=== PATIENT | female | born 1995 | race African-American/Black ===

== ENCOUNTER 2021-10-25 09:21 | Emergency (ER) | payer OTHER, SELFPAY ==
[2021-10-25 09:35] VITALS: BP 132/70; PULSE 75; RESP 16; TEMP 36.9; O2SAT 100
--- NOTE | 2021-10-25 10:10 | ED.URI ---
HPI - URI/Sore Throat General Chief Complaint: Upper Respiratory Infection Stated Complaint: Cough/Headache/Congestion Time Seen by Provider: 10/25/21 10:10 Source: patient and RN notes reviewed Mode of arrival: ambulatory Limitations: no limitations History of Present Illness HPI Narrative: 26-year-old female presents to the [facility] with complaints of cough, headache and congestion for the last 2 to 3 days. Has taken Robitussin and Tylenol. MD elicited complaint: cough, rhinorrhea and nasal congestion Related Data Home Medications Medication Instructions Recorded Confirmed No Home Medications 10/25/21 10/25/21 Allergies Allergy/AdvReac Type Severity Reaction Status Date / Time No Known Allergies Allergy Verified 10/25/21 09:55 Review of Systems Review of Systems: All systems reviewed & are unremarkable except as noted in HPI and below Constitutional: Constitutional: Reports as per HPI, Denies chills, Reports fatigue and Denies fever(s) Eyes: Eyes: Reports no additional eye complaints ENT: Reports as per HPI and Reports nasal congestion Cardiovascular: Cardiovascular: Reports no additional cardiovascular complaints, Denies chest pain, Denies rapid heart rate and Denies radiating jaw, neck or arm pain Respiratory: Respiratory: Reports as per HPI, Reports chest congestion and Reports cough Gastrointestinal: Gastrointestinal: Reports no additional gastrointestinal complaints, Denies abdominal pain, Denies diarrhea, Denies nausea and Denies vomiting Genitourinary: Genitourinary: Reports no additional female genitourinary complaints Musculoskeletal: Musculoskeletal: Reports no additional musculoskeletal complaints Integumentary/Breasts: Skin/Breast: Reports system reviewed and no additional complaints, except as docu Neurologic: Reports as per HPI and Reports headache(s) Psychiatric: Psychiatric: Reports no additional psychiatric complaints Allergic/Immunologic: Allergic/Immunologic: Reports no additional allergic/immunologic complaints PMFSH Past Medical History Medical History H/O gastroesophageal reflux (GERD) High cholesterol Comments At the time of my signature, I reviewed and agree with the nursing past medical, surgical, social, and family history. There is no relevant family history pertinent to the patient complaint. Exam Const: General: healthy appearing, no acute distress and alert Nutritional Appearance: well nourished Orientation/consciousness: patient oriented x3 Limitations: no limitations HENMT: Head: normal to inspection General nose exam: Normal external nose present, Abnormal mucous membranes and turbinates present boggy and erythematous and Nasal discharge present clear Face and sinus: normal facial exam Mouth: Yes Normal oral and palatal mucosa present Throat: tonsils normal, uvula midline, postnasal drainage and no uvular edema Eyes: Conjunctivae: conjunctivae normal Pupils: Equal, round and reactive pupils present Neck: Neck: normal visual inspection, no lymphadenopathy and no meningeal signs Chest: Chest palpation & inspection: normal inspection of the chest Resp: Effort & Inspection: normal respiratory effort and no use of accessory muscles Auscultation: clear to auscultation bilaterally, no crackles, no rales, no rhonchi and no wheezes Cardio: Rate: regular rate Rhythm: regular rhythm GI: GI Palp: Yes Soft to palpation and No Tenderness to palpation present (GI) Back/Spine/Pelvis: Back: no CVA tenderness Skin: General skin exam: normal color Rashes: no rashes Wounds: no wounds Neuro: General: patient oriented x3, moves all extremities, no meningeal signs and no focal motor deficits Speech: normal speech Gait exam (Neuro): Normal gait present Extrem: General: normal to inspection Psych: Appearance: grossly normal and well kempt Mental Status: mental status grossly normal Affect: normal affect Attitude: c
[2021-10-26 14:35] LABS: SARS-CoV-2 RNA PCR Positive
== END 2021-10-25 10:29 | disposition home or self-care (01) ==
PROVIDERS: Emergency Provider Nurse Practitioner
DX: U07.1 COVID-19 (principal); K21.9 Gastro-esophageal reflux disease without esophagitis; E78.00 Pure hypercholesterolemia, unspecified
CPT/HCPCS: 87081; 87804; 87880; 99213; C9803; G0463; U0003; U0005

== ENCOUNTER 2023-03-13 23:58 | Emergency (ER) | payer OTHER, SELFPAY ==
--- NOTE | ~2023-03-13 | CT_ITS ---
Noncontrast CT scan of the pelvis CLINICAL HISTORY: Sacral tenderness TECHNIQUE: Axial noncontrast imaging of the pelvis was performed. Sagittal and coronal reformatted im ages were constructed. Dose reduction technique was used on this scan by utilizing automated exposure control and iterative reconstruction technique. The dose-length product (DLP) was 805.83 mGy-cm. Findings: No fracture or dislocation seen. Osseous alignment is anatomic. Bilateral hip and SI joints are unremarkable. No degenerative or erosive change identified. No sclerosis. No joint effusion iden tified. Visualized musculature about the pelvis is grossly unremarkable. No soft tissue abnormality seen. No definite adnexal mass seen. No ascites. Urinary bladder unremarkable. IMPRESSION: No significant abnormality seen. Reviewed, dictated and finalized at location .
[2023-03-14 00:01] VITALS: BP 138/68; PULSE 80; RESP 20; TEMP 36.9; O2SAT 98
[2023-03-14] MEDS: KETOROLAC 30 MG/ML VIAL (*BKC) IM (00:38)
--- NOTE | 2023-03-14 00:43 | ED.BACK ---
HPI - Back Pain/Injury General Chief Complaint: Back Pain/Injury Stated Complaint: lower back pain Time Seen by Provider: 03/14/23 00:17 History of Present Illness HPI Narrative: Patient is a 27-year-old female here for evaluation of tailbone pain for the past 2 days. Patient states that the pain is worse with certain positions and with movements of her legs. Denies obvious trigger. No changes to her bowel or bladder, paresthesias, weakness in the limbs. She has not taken any medicine for her symptoms. Related Data Allergies Allergy/AdvReac Type Severity Reaction Status Date / Time No Known Allergies Allergy Verified 10/25/21 09:55 Review of Systems Review of Systems: Gen.: Denies fevers or chills Eyes: Denies eye pain or visual change ENT: Denies congestion Respiratory: Denies shortness of breath or cough CV: Denies chest pain or palpitations GI: Denies abdominal pain nausea, emesis or diarrhea : denies burning, urgency, frequency or hematuria Musculoskeletal: Reports tailbone pain Neuro: Denies numbness, tingling, weakness or focal weakness Skin: Denies rash Except as documented, all other systems reviewed and negative PMFSH Past Medical History Medical History H/O gastroesophageal reflux (GERD) High cholesterol Exam Narrative: APPEARANCE: Well appearing, no pain in distress, well-nourished. Head: Normocephalic and atraumatic. EYES: PERRLA/EOMI, conjunctivae clear NOSE: No nasal drainage EARS: External ear normal in appearance THROAT: Oropharynx is clear. Mucous membranes are moist. NECK: Supple. No adenopathy, no masses. RESPIRATORY: Airway patent, respirations nonlabored. Clear to auscultation bilaterally, no rales, rhonchi, wheezing. CARDIOVASCULAR: Regular rate and rhythm without murmurs, rubs, or gallops. ABDOMINAL: Normoactive bowel sounds. Soft, nontender, nondistended. No rebound tenderness or guarding. MUSCULOSKELETAL: There is tenderness to palpation along the sacrum. Patient is able to stand without difficulty. NEURO: Normal speech. No focal neurologic deficits. SKIN: No palpable abscess in the pilonidal region. Skin is warm and dry. No rashes. PSYCHIATRIC: Normal affect/mood.. Course Vital Signs Vital signs: Vital Signs Temperature 98.5 F 03/14/23 00:01 Pulse Rate 80 03/14/23 00:01 Respiratory Rate 20 03/14/23 00:01 Blood Pressure 138/68 03/14/23 00:01 Pulse Oximetry 98 03/14/23 00:01 Oxygen Delivery Room Air 03/14/23 00:01 Temperature 98 F 03/14/23 02:09 Pulse Rate 62 03/14/23 02:09 Respiratory Rate 15 03/14/23 02:09 Blood Pressure 118/52 L 03/14/23 02:09 Pulse Oximetry 100 03/14/23 02:09 Oxygen Delivery Room Air 03/14/23 00:01 MDM - Back Pain/Injury MDM Narrative Medical decision making narrative: 27-year-old female here for evaluation of atraumatic tailbone pain for the past several days. No abnormality on exam, does have some slight tenderness palpation along the sacrum. No incontinence or retention of bowel or bladder, saddle anesthesia. CT without acute findings. UA is normal. Patient improved after Toradol. Likely MSK sprain. Will be sent home with muscle relaxants and PMD follow-up. Lab Data Labs: Lab Results 03/14/23 Range/Units 00:48 Urine Color Yellow (Yellow) Urine Appearance Clear (Clear) Urine pH 7.0 (5.0-9.0) Ur Specific [place] 1.021 (1.001-1.035) Urine Protein Negative (Negative) mg/dL Urine Glucose (UA) Negative (Negative) mg/dL Urine Ketones Negative (Negative) mg/dL Ur Blood (Man) Negative (Negative) Urine Nitrate Negative (Negative) Urine Bilirubin Negative (Negative) Urine Urobilinogen 1.0 (<2.0) mg/dL Leukocyte Esterase Rfl Negative (Negative) MATT/UL UCG Bedside Result Negative Reference Range: Negative
[2023-03-14 00:55] LABS: Appearance Urine Clear (Clear); Bilirubin Urine Negative (Negative); Blood Urine Negative (Negative); Color Urine Yellow (Yellow); Glucose Urine UA Negative (Negative); Ketones Urine Negative (Negative); Leukocyte Esterase Ur Negative LEU/UL (Negative); Nitrate Urine Negative (Negative); Protein Urine Negative (Negative); Specific Grav Ur 1.021 (1.001-1.035)
[2023-03-14 01:00] LABS: Add Urine Microscopic? NO
[2023-03-14 02:09] VITALS: BP 118/52; PULSE 62; RESP 15; TEMP 36.6; O2SAT 100
== END 2023-03-14 02:10 | disposition home or self-care (01) ==
PROVIDERS: Emergency Provider Physician Assistant
DX: S39.012A Strain of muscle, fascia and tendon of lower back, initial encounter (principal); E78.00 Pure hypercholesterolemia, unspecified; K21.9 Gastro-esophageal reflux disease without esophagitis; X58.XXXA Exposure to other specified factors, initial encounter
CPT/HCPCS: 72192; 81003; 81025; 96372; 99284; J1885

== ENCOUNTER 2023-07-19 16:40 | Emergency (ER) | payer MEDICAID, SELFPAY ==
--- NOTE | ~2023-07-19 | XR_ITS ---
EXAMINATION: XR tibia fibula RT 2V INDICATION: Right leg pain TECHNIQUE: Two views of the right tibia and fibula are obtained. COMPARISON: None available FINDINGS: No fracture, dislocation, or subluxation. The bones, soft tissues, and joint spaces are nor mal. IMPRESSION: 1. No acute osseous abnormality. Reviewed, dictated and finalized at location F.
--- NOTE | ~2023-07-19 | XR_ITS ---
EXAMINATION: XR knee RT min 4V DATE: 07/19/2023 19:03 INDICATION: Right knee pain TECHNIQUE: Four views of the right knee were obtained. COMPARISON: None. FINDINGS: Alignment is normal. No fracture or osteochondral lesion. Joint spaces are normal with no e rosions. No joint effusion/synovitis. Soft tissues are unremarkable. IMPRESSION: 1. No acute osseous abnormality. Reviewed, dictated and finalized at location F.
--- NOTE | ~2023-07-19 | XR_ITS ---
EXAMINATION: XR tibia fibula LT 2V INDICATION: Left lower leg pain TECHNIQUE: Two views of the left tibia and fibula are obtained COMPARISON: None available FINDINGS: No fracture, dislocation, or subluxation. The bones, soft tissues, and joint spaces are nor mal. IMPRESSION: 1. No acute osseous abnormality. Reviewed, dictated and finalized at location F.
--- NOTE | ~2023-07-19 | US_ITS ---
EXAMINATION: US venous doppler [facility] DATE: 07/19/2023 19:27 INDICATION: Bilateral lower limb pain TECHNIQUE: March scale images without and with compression and Doppler images of the bilateral lower e xtremity veins were obtained. COMPARISON: None FINDINGS: The right common femoral vein, profunda femoral vein, femoral vein, popliteal vein, peroneal trunk, p osterior tibial veins, and greater saphenous vein are patent. The left common femoral vein, profunda femoral vein, femoral vein, popliteal vein, peroneal trunk, po sterior tibial veins, and greater saphenous vein are patent. IMPRESSION: 1. Patent bilateral lower extremity veins. No evidence of deep venous thrombosis. Reviewed, dictated and finalized at location F. IMPRESSION: 1. Patent bilateral lower extremity veins. No evidence of deep venous thrombosi s.
[2023-07-19 17:01] VITALS: BP 123/56; PULSE 63; RESP 15; TEMP 36.6; O2SAT 100
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
--- NOTE | 2023-07-19 19:13 | PC.NURSE ---
This RN assumed care of patient. This RN took patient report from DENIS Hart.
[2023-07-19] MEDS: CYCLOBENZAPRINE HCL 10 MG TABLET PO (19:36)
[2023-07-19] MEDS: IBUPROFEN 600 MG TABLET PO (19:36)
[2023-07-19 19:50] LABS: Basophils Percent Auto 0.3 % (0.2-1.2); Eosinophils Absolute Auto 0.1 K/mm3 (0-0.3); Hematocrit 39.6 % (37.0-47.0); Hemoglobin 12.4 g/dL (12.0-15.0); Immature Granulocyte Absolute 0.04 K/mm3 (0.00-0.031); Immature Granulocyte Percent A 0.3 % (0-0.5); Lymphocytes Absolute Auto 4.26 K/mm3 (0.9-3.2); Lymphocytes Percent Auto 31.1 % (18.3-44.2); Mean Corpuscular HGB Conc 31.3 g/dl (32-36); Mean Corpuscular Volume 89.4 fl (80-100); Mean Platelet Volume 9.9 fl (7.4-10.4); Monocytes Absolute Auto 0.8 K/mm3 (0.1-0.6); Monocytes Percent Auto 6.1 % (2.6-8.5); Neutrophils Absolute Auto 8.4 K/mm3 (1.3-6.7); Neutrophils Percent Auto 61.2 % (45.5-73.1); Platelet Count Result 363 k/mm3 (150-375); Red Blood Count 4.43 M/mm3 (4.2-5.4); Red Cell Distribution Width 13.1 % (11.5-14.5); White Blood Count 13.7 K/mm3 (4.5-10.0)
[2023-07-19 20:01] LABS: Anion Gap 6 mmol/L (8-16); Blood Urea Nitrogen 13 mg/dL (7-17); Calcium 9.1 mg/dL (8.4-10.2); Carbon Dioxide 30 mmol/L (22-30); Chloride 99 mmol/L (98-107); Creatine Kinase 147 U/L (30-135); Estimated CRCL calculation 112 ml/min; Estimated Glomerular Filt Rate > 60; Glucose 93 mg/dL (65-110); Magnesium 1.9 mg/dL (1.6-2.3); Phosphorus 3.9 mg/dL (2.5-4.5); Potassium 3.8 mmol/L (3.4-5.0); Sodium 135 mmol/L (137-145)
[2023-07-19] MEDS: diphenhydrAMINE HCl CAP 25 MG CAPSULE PO (20:30)
== END 2023-07-19 20:32 | disposition home or self-care (01) ==
PROVIDERS: Emergency Provider Physician Assistant
DX: M79.662 Pain in left lower leg (principal); M79.661 Pain in right lower leg; E78.00 Pure hypercholesterolemia, unspecified; K21.9 Gastro-esophageal reflux disease without esophagitis
CPT/HCPCS: 36415; 73564; 73590; 80048; 82550; 83735; 84100; 85025; 93970; 99284; A9270

== ENCOUNTER 2024-01-28 08:30 | Emergency (ER) | payer OTHER, SELFPAY ==
[2024-01-28 08:38] VITALS: BP 134/70; PULSE 61; RESP 20; TEMP 36.6; O2SAT 100
--- NOTE | 2024-01-28 09:13 | ED.GENADULT ---
HPI - General Adult General Chief complaint: Headache Stated complaint: headache Time Seen by Provider: 01/28/24 09:02 History of Present Illness HPI narrative: 28-year-old female with a history of migraines presents to the emergency department for a migraine times 3-4 days. Patient states her headache is around her temples and wraps around her forehead. She states it is associated with photophobia, phonophobia nausea. States this is how her migraines normally present. She is prescribed Topamax for migraines, however did not take it today because she states she does not like the way it makes her feel. She denies vision changes, focal numbness or weakness, fever, neck pain or nuchal rigidity, vomiting. LMP 01/08/2024, denies possibility of . Related Data Allergies Allergy/AdvReac Type Severity Reaction Status Date / Time No Known Allergies Allergy Verified 01/28/24 08:41 Review of Systems Review of Systems: CONSTITUTIONAL: Denies fever, chills, or sweats. EYES: Denies visual changes, redness, or discharge. ENT: Denies rhinorrhea, congestion, sore throat, or otalgia. CARDIOVASCULAR: Denies chest pain, palpitations, or edema. RESPIRATORY: Denies cough or dyspnea. GASTROINTESTINAL: Denies abdominal pain, nausea, vomiting, or diarrhea. GENITOURINARY: Denies dysuria or hematuria. SKIN: Denies rash or itching. MUSCULOSKELETAL: Denies back pain, joint pain, or myalgia. NEUROLOGIC: See HPI PSYCHIATRIC: Denies anxiety or depression. PMFSH Past Medical History Medical History H/O gastroesophageal reflux (GERD) High cholesterol Exam Narrative: GENERAL: Well-appearing, well-nourished, and in no acute distress. HEAD: Normocephalic, atraumatic. EYES: PERRLA and EOMI. ENT: Nares clear, no rhinorrhea or epistaxis. Mucous membranes moist. Bilateral TMs are colindres nonbulging normal canals. No mastoid tenderness. Posterior pharynx erythema or edema. NECK: Supple. No nuchal rigidity CHEST: Clear to auscultation. No respiratory distress. HEART: Regular rate and rhythm. No murmur heard. Normal peripheral pulses. ABDOMEN: Soft, nontender, nondistended, normal active bowel sounds. EXTREMITIES: Normal range of motion. No edema. SKIN: Warm, dry, no rash. NEURO: No focal deficits. Alert and oriented x3. Cranial nerves 2-12 intact. Strength 5/5 in BUE and BLE. Sensation intact throughout. Normal [id number]. No pronator drift. Course Vital Signs Vital signs: Vital Signs Temperature 97.9 F 01/28/24 08:38 Pulse Rate 61 01/28/24 08:38 Respiratory Rate 20 01/28/24 08:38 Blood Pressure 134/70 01/28/24 08:38 Pulse Oximetry 100 01/28/24 08:38 Oxygen Delivery Room Air 01/28/24 08:38 Temperature 98.0 F 01/28/24 10:01 Pulse Rate 56 L 01/28/24 10:01 Respiratory Rate 16 01/28/24 10:01 Blood Pressure 107/68 01/28/24 10:01 Pulse Oximetry 99 01/28/24 10:01 Oxygen Delivery Room Air 01/28/24 08:38 Medical Decision Making [facility] Narrative Medical decision making narrative: 28-year-old female with history of migraines presents to emergency department for migraine x3 or 4 days with associated photophobia, phonophobia nausea. Vital stable. She is neurologically intact without red flag headache signs. Plan to give her a migraine cocktail and fluids and re-evaluate. If patient re-evaluated after fluids a migraine cocktail and feels much better. She is tolerating p.o. intake. Feels she to be discharged home. Encouraged her to continue taking her Topamax, Tylenol ibuprofen and follow-up closely with her PCP. Strict ED return precautions were discussed. She is agreeable with the plan verbalized understanding. Discharged in stable condition. Vital Signs Vital Signs: Vital Signs Temperature 97.9 F 01/28/24 08:38 Pulse Rate 61 01/28/24 08:38 Respiratory Rate 20 01/28/24 08:38 Blood Pressure 134/70 01/28/24 08:
[2024-01-28 09:37] VITALS: BP 112/91; PULSE 54; RESP 16; TEMP 36.6; O2SAT 100
[2024-01-28] MEDS: SODIUM CHLORIDE 0.9% IV 1,000 ML 999 ML IV CONT (09:46)
[2024-01-28] MEDS: PROCHLORPERAZINE EDISYLATE 10 MG/2 ML VIAL IV PUSH (09:48)
[2024-01-28] MEDS: diphenhydrAMINE HCl INJ 50 MG/ML VIAL 25 MG IV PUSH (09:48)
[2024-01-28] MEDS: KETOROLAC 30 MG/ML VIAL (*BKC) IV PUSH (09:48)
[2024-01-28 10:01] VITALS: BP 107/68; PULSE 56; RESP 16; TEMP 36.7; O2SAT 99
== END 2024-01-28 11:10 | disposition home or self-care (01) ==
PROVIDERS: Emergency Provider Physician Assistant
DX: G44.209 Tension-type headache, unspecified, not intractable (principal); K21.9 Gastro-esophageal reflux disease without esophagitis
CPT/HCPCS: 96361; 96374; 96375; 99284; J0780; J1200; J1885; J7030

== ENCOUNTER 2024-08-21 09:50 | Emergency (ER) | payer OTHER, SELFPAY ==
--- NOTE | ~2024-08-21 | XR_ITS ---
EXAMINATION: XR chest 2V DATE: 08/21/2024 10:43 INDICATION: Midsternal chest pain. TECHNIQUE: Frontal and lateral views of the chest were obtained. COMPARISON: None. FINDINGS: There is no pneumonia, pleural effusion, or pneumothorax. The heart size is normal. IMPRESSION: 1. No acute cardiopulmonary disease. Reviewed, dictated and finalized at location B.
--- NOTE | 2024-08-21 09:55 | ECG_ITS ---
Test Date: 2024-08-21 09:59:19 Measurements Intervals [place] Rate: 63 P: 61 OR: 186 QRS: -29 QRSD: 93 T: 24 QT: 423 QTc: 436 Interpretive Statements SINUS RHYTHM POSSIBLE LEFT ATRIAL ENLARGEMENT DELAYED PRECORDIAL R/S TRANSITION BORDERLINE T WAVE ABNORMALITY- ANT/INF LEADS BASELINE WANDER- V4 BORDERLINE ECG No previous ECG available for comparison Electronically Signed On 08-21-2024 10:30:39 CDT by Barrie Knott D.O.
[2024-08-21 10:00] VITALS: BP 138/82; PULSE 57; RESP 18; TEMP 36.5; O2SAT 100
[2024-08-21 10:19] LABS: Basophils Percent Auto 0.4 % (0.2-1.2); Eosinophils Absolute Auto 0.1 K/mm3 (0-0.3); Eosinophils Percent Auto 1.1 % (0-4.4); Hematocrit 38.4 % (37.0-47.0); Hemoglobin 12.5 g/dL (12.0-15.0); Immature Granulocyte Absolute 0.03 K/mm3 (0.00-0.031); Immature Granulocyte Percent A 0.3 % (0-0.5); Lymphocytes Absolute Auto 3.15 K/mm3 (0.9-3.2); Lymphocytes Percent Auto 27.8 % (18.3-44.2); Mean Corpuscular HGB Conc 32.6 g/dl (32-36); Mean Corpuscular Hemoglobin 28.7 pg (26-34); Mean Corpuscular Volume 88.3 fl (80-100); Mean Platelet Volume 9.9 fl (7.4-10.4); Monocytes Absolute Auto 0.7 K/mm3 (0.1-0.6); Monocytes Percent Auto 5.7 % (2.6-8.5); Neutrophils Absolute Auto 7.3 K/mm3 (1.3-6.7); Neutrophils Percent Auto 64.7 % (45.5-73.1); Platelet Count Result 359 k/mm3 (150-375); Red Blood Count 4.35 M/mm3 (4.2-5.4); Red Cell Distribution Width 13.2 % (11.5-14.5); White Blood Count 11.3 K/mm3 (4.5-10.0)
[2024-08-21 10:27] LABS: Alanine Aminotransferase 17 U/L (6-35); Alkaline Phosphatase 99 U/L (38-126); Anion Gap 4 mmol/L (4-12); Aspartate Amino Transferase 22 U/L (14-36); Bilirubin,Total 0.5 mg/dL (0.2-1.3); Blood Urea Nitrogen 8 mg/dL (7-17); Calcium 9.1 mg/dL (8.4-10.2); Carbon Dioxide 33 mmol/L (22-30); Chloride 101 mmol/L (98-107); Estimated CRCL calculation 108 ml/min; Estimated Glomerular Filt Rate > 60; Glucose 93 mg/dL (65-110); Lipase 93 U/L (23-300); Potassium 3.9 mmol/L (3.4-5.0); Sodium 138 mmol/L (137-145)
[2024-08-21 10:30] LABS: Prothrombin Time 13.9 Seconds (11.1-14.7)
[2024-08-21 10:31] LABS: Partial Thromboplastin Time 31.9 Seconds (22.3-36.8)
[2024-08-21 10:39] LABS: Troponin I < 0.012 ng/mL (0.000-0.034)
--- NOTE | 2024-08-21 11:50 | ED.CHESTPAIN ---
HPI - Chest Pain General Chief Complaint: Chest Pain <Cheryl Nails PA-C - Last Filed: 08/21/24 18:56> Stated Complaint: chest pain <Cheryl Nails PA-C - Last Filed: 08/21/24 18:56> Time Seen by Provider: 08/21/24 11:50 <Cheryl Nails PA-C - Last Filed: 08/21/24 18:56> Focused HPI: This is a 29 year old female that presents to the ER for intermittent chest pain. Ongoing over the last 4 days. Reports sharp pain. Her chest feels heavy. Feels like she had to sleep sitting up. Reports some shortness of breath. Denies fever, cough, lower extremity edema. GENERAL: Well-appearing, well-nourished, and in no acute distress. HEAD: Normocephalic, atraumatic. CHEST: Clear to auscultation. ?No respiratory distress. HEART: Regular rate and rhythm.? NEURO: ?Alert and oriented x3. Patient screened in triage and initial orders placed.? ?Additional care and disposition to be based upon?diagnostic testing and treatment. <Cheryl Nails PA-C - Last Filed: 08/21/24 18:56> History of Present Illness HPI narrative: Agree with the above with the following additions/corrections: Patient presents with chest pain a few days duration she is not improving. She describes it as an intermittent sharp pain and feeling pressure like it is heavy. It is also worse with deep breath. no palliating or provoking factors. It is otherwise nonradiating and described 10 Out of 10 severity. the hip was once her feel like she was short of breath. She denies any cough particularly no hemoptysis. The episodes last a while. no fever, nausea, vomiting. No diaphoresis although she does get flushed. She previously underwent evaluation cardiology Pulmonary had a stress test and PFTs performed which were reportedly normal. This occurred within the past year. She does not otherwise regularly follow with a brush clearer surveying. No history of hypertension. She does hyperlipidemia which she is on a statin. No prior myocardial infarction, TIA, or CVA. No family history of myocardial infarction before the age of 65 in a first-degree relative. Nonsmoker. No history of diabetes mellitus. No lower extremity edema. no recent mobilization, not currently on control (She has a history of PCOS but this was discontinued awhile ago). No recent travel or history of DVT or PE. Her primary care physician is Dr. Susan Thakkar through [facility] which is also the hospital system through which is the hospital system she previously saw cardiology at [facility]. <Radha Rizzo MD - Last Filed: 08/22/24 06:32> Related Data Allergies/Adverse Reactions: Allergies Allergy/AdvReac Type Severity Reaction Status Date / Time rizatriptan Allergy Unknown Verified 08/21/24 12:02 latex AdvReac Hives Verified 08/21/24 12:02 <Cheryl Nails PA-C - Last Filed: 08/21/24 18:56> Review of Systems Review of Systems: All systems reviewed & are unremarkable except as noted in HPI and below <Cheryl Nails PA-C - Last Filed: 08/21/24 18:56> PMFSH Past Medical History Medical History: Medical History (Updated 08/22/24 @ 06:27 by Radha Rizzo MD) Jean's palsy H/O gastroesophageal reflux (GERD) High cholesterol PCOS (polycystic ovarian syndrome) <Cheryl Nails PA-C - Last Filed: 08/21/24 18:56> Social History Social History: Social History (Updated 08/22/24 @ 06:27 by Radha Rizzo MD) Smoking status: Never smoker Substance use: never <Cheryl Nails PA-C - Last Filed: 08/21/24 18:56> Exam Narrative: GENERAL: Well-appearing, well-nourished, and in no acute distress. HEAD: Normocephalic, atraumatic. EYES: Non injected, non icteric ENT: Nares clear, no rhinorrhea or epistaxis. NECK: Supple. CHEST: Speaking in full sentences. No respiratory distress. lungs clear to auscultation bilateral without wheezes crackles or consolidation HEART: bradycardic rate and rhythm. . ABDOMEN: Soft, nondistended. EXTREMITIES: Normal range of motion. No bilateral lower extremity edema. SKIN: Warm, dry, no rash. NEURO: No focal deficits. Alert and oriented x3. PSYCH: Normal mood and affect. <Radha Rizzo MD - Last Filed: 08/22/24 06:32> Course Vital Signs Vital signs: Vital Signs Temperature 97.7 F 08/21/24 10:00 Pulse Rate 57 L 08/21/24 10:00 Respiratory Rate 18 08/21/24 10:00 Blood Pressure 138/82 08/21/24 10:00 Pulse Oximetry 100 08/21/24 10:00 Oxygen Delivery Room Air 08/21/24 10:00 Temperature 97.7 F 08/21/24 10:00 Pulse Rate 57 L 08/21/24 10:00 Respiratory Rate 18 08/21/24 10:00 Blood Pressure 138/82 08/21/24 10:00 Pulse Oximetry 98 08/21/24 12:40 Oxygen Delivery Room Air 08/21/24 12:40 <Cheryl Nails PA-C - Last Filed: 08/21/24 18:56> Vital Signs Temperature 97.7 F 08/21/24 10:00 Pulse Rate 57 L 08/21/24 10:00 Respiratory Rate 18 08/21/24 10:00 Blood Pressure 138/82 08/21/24 10:00 Pulse Oximetry 100 08/21/24 10:00 Oxygen Delivery Room Air 08/21/24 10:00 Temperature 97.7 F 08/21/24 10:00 Pulse Rate 57 L 08/21/24 10:00 Respiratory Rate 18 08/21/24 10:00 Blood Pressure 138/82 08/21/24 10:00 Pulse Oximetry 98 08/21/24 12:40 Oxygen Delivery Room Air 08/21/24 12:40 <Radha Rizzo MD - Last Filed: 08/22/24 06:32> MDM - Chest Pain MDM Narrative Medical decision making narrative: 29-year-old female presents with chest pain of a few days duration. In the emergency department she is afebrile with vital signs notable for mild bradycardia. PERC Rule Age greater than or equal to 50: 0 HR greater than or equal to 100:0 O2 sat room air <95%:0 Unilateral leg swellin Hemoptysis:0 Recent surgery or trauma less than 4 wks ago requiring tx with general anesthesia:0 Prior PE or DVT:0 Hormone use (OCP, HRT or estrogenic hormone use in M/F patients): 0 Will not pursue further work up for PE, especially since Wells' Score for PE: Clinical S/S DVT (No 0, Yes +3) 0 PE #1 Dx OR equally likely (No 0, Yes +3)0 HR >100 (No 0, Yes +1.5)0 Immobiliazation at least 3 d OR surgery prev 4 wks (No 0, Yes +1.5)0 Previous Dx DVT/PE (No 0, Yes +1.5):0 Hemoptysis (No 0, Yes +1):0 Malignancy w/ Tx within 6 mos or palliative (No 0, Yes +1):0 I later see that FLAVIA had added a D Dimer but it was normal. BNP is less than 100, unlikely to be heart failure. Patient has a mild leukocytosis but other than that workup is generally unremarkable. HEART SCORE History 2 highly suspicious 1 moderately suspicious 0 slightly suspicious History score [address] depression/elevation not due to LBBB, LVH, or digoxin [address] depression but LBBB, LVH, nonspecific repolarization changes 0 normal ECG score 1 Age 2 >/= 65 1 45-64 0 <45 Age score 1 Risk factors (HTN, hypercholesterolemia, DM, obesity with BMI >30, current smoker or cessation </=3mo), positive fam hx with parent or sibling with CVD before age 65, atherosclerotic disease (prior UT, PCI/CABG, CVA/TIA, or peripheral arterial disease) 2 >/= 3 risk factors or history of atherosclerotic dz 1 - 1-2 risk factors 0 no known risk factors Risk factor score 1 ( as hyperlipidemia, obesity) Initial Troponin 2 >3 times normal limit 1 1-3 times normal limit 0 less than or equal to normal limit Troponin score : 0 Total HEART Score 2 with 2nd negative troponin. Patient discharged in stable condition with prescriptions for acetaminophen and ibuprofen and advised to follow-up with her primary care physician and the brush clearer surveying she previously saw or, also provided referral for brush clearer surveying here. <Radha Rizzo MD - Last Filed: 08/22/24 06:32> Differential Diagnosis Differential diagnosis: Likely unstable angina pectoris, atypical chest pain, costochondritis, chest pain, biliary colic and other (pericarditis, Myocarditis, musculoskeletal) <Radha Rizzo MD - Last Filed: 08/22/24 06:32> Lab Data Attestation: I reviewed the patient's lab results. <Radha Rizzo MD - Last Filed: 08/22/24 06:32> Result diagrams: 08/21/24 10:07 08/21/24 10:07 <Cheryl Nails PA-C - Last Filed: 08/21/24 18:56> Labs: Lab Results 08/21/24 08/21/24 Range/Units 10:07 12:43 WBC 11.3 H (4.5-10.0) K/mm3 RBC 4.35 (4.2-5.4) M/mm3 Hgb 12.5 (12.0-15.0) g/dL Hct 38.4 (37.0-47.0) % MCV 88.3 (80-100) fl MCH 28.7 (26-34) pg MCHC 32.6 (32-36) g/dl RDW 13.2 (11.5-14.5) % Plt Count 359 (150-375) k/mm3 MPV 9.9 (7.4-10.4) fl Immature Gran % (Auto) 0.3 (0-0.5) % Neut % (Auto) 64.7 (45.5-73.1) % Lymph % (Auto) 27.8 (18.3-44.2) % Talbot % (Auto) 5.7 (2.6-8.5) % Eos % (Auto) 1.1 (0-4.4) % Baso % (Auto) 0.4 (0.2-1.2) % Lymph # (Auto) 3.15 (0.9-3.2) K/mm3 Talbot # (Auto) 0.7 H (0.1-0.6) K/mm3 Eos # (Auto) 0.1 (0-0.3) K/mm3 Baso # (Auto) 0.0 (0.0-0.1) K/mm3 Abs Immat Gran (auto) 0.03 (0.00-0.031) K/mm3 Absolute Neuts (auto) 7.3 H (1.3-6.7) K/mm3 Absolute Nucleated RBC 0.000 (0.0-0.012) K/mm3 Nucleated RBC % 0.0 (0.0-0.2) % PT 13.9 (11.1-14.7) Seconds INR 1.0 APTT 31.9 (22.3-36.8) Seconds D-Dimer 0.30 Cancelled (<0.48) ug/mL Sodium 138 (137-145) mmol/L Potassium 3.9 (3.4-5.0) mmol/L Chloride 101 (98-107) mmol/L Carbon Dioxide 33 H (22-30) mmol/L Anion Gap 4 (4-12) mmol/L BUN 8 D (7-17) mg/dL Creatinine 0.80 (0.7-1.0) mg/dL Estim Creat Clear Calc 108 ml/min Estimated GFR > 60 (59 - ) Glucose 93 (65-110) mg/dL Calcium 9.1 (8.4-10.2) mg/dL Total Bilirubin 0.5 (0.2-1.3) mg/dL AST 22 (14-36) U/L ALT 17 (6-35) U/L Alkaline Phosphatase 99 (38-126) U/L Troponin I < 0.012 < 0.012 (0.000-0.034) ng/mL NT-Pro-B Natriuret Pep 46 (19.9-100) pg/mL Total Protein 8.0 (6.3-8.2) g/dL Albumin 4.0 (3.5-5.1) g/dL Lipase 93 (23-300) U/L <Cheryl Nails PA-C - Last Filed: 08/21/24 18:56> Lab Results 08/21/24 08/21/24 Range/Units 10:07 12:43 WBC 11.3 H (4.5-10.0) K/mm3 RBC 4.35 (4.2-5.4) M/mm3 Hgb 12.5 (12.0-15.0) g/dL Hct 38.4 (37.0-47.0) % MCV 88.3 (80-100) fl MCH 28.7 (26-34) pg MCHC 32.6 (32-36) g/dl RDW 13.2 (11.5-14.5) % Plt Count 359 (150-375) k/mm3 MPV 9.9 (7.4-10.4) fl Immature Gran % (Auto) 0.3 (0-0.5) % Neut % (Auto) 64.7 (45.5-73.1) % Lymph % (Auto) 27.8 (18.3-44.2) % Talbot % (Auto) 5.7 (2.6-8.5) % Eos % (Auto) 1.1 (0-4.4) % Baso % (Auto) 0.4 (0.2-1.2) % Lymph # (Auto) 3.15 (0.9-3.2) K/mm3 [place]bot # (Auto) 0.7 H (0.1-0.6) K/mm3 Eos # (Auto) 0.1 (0-0.3) K/mm3 Baso # (Auto) 0.0 (0.0-0.1) K/mm3 Abs Immat Gran (auto) 0.03 (0.00-0.031) K/mm3 Absolute Neuts (auto) 7.3 H (1.3-6.7) K/mm3 Absolute Nucleated RBC 0.000 (0.0-0.012) K/mm3 Nucleated RBC % 0.0 (0.0-0.2) % PT 13.9 (11.1-14.7) Seconds INR 1.0 APTT 31.9 (22.3-36.8) Seconds D-Dimer 0.30 Cancelled (<0.48) ug/mL Sodium 138 (137-145) mmol/L Potassium 3.9 (3.4-5.0) mmol/L Chloride 101 (98-107) mmol/L Carbon Dioxide 33 H (22-30) mmol/L Anion Gap 4 (4-12) mmol/L BUN 8 D (7-17) mg/dL Creatinine 0.80 (0.7-1.0) mg/dL Estim Creat Clear Calc 108 ml/min Estimated GFR > 60 (59 - ) Glucose 93 (65-110) mg/dL Calcium 9.1 (8.4-10.2) mg/dL Total Bilirubin 0.5 (0.2-1.3) mg/dL AST 22 (14-36) U/L ALT 17 (6-35) U/L Alkaline Phosphatase 99 (38-126) U/L Troponin I < 0.012 < 0.012 (0.000-0.034) ng/mL NT-Pro-B Natriuret Pep 46 (19.9-100) pg/mL Total Protein 8.0 (6.3-8.2) g/dL Albumin 4.0 (3.5-5.1) g/dL Lipase 93 (23-300) U/L <Radha Rizzo MD - Last Filed: 08/22/24 06:32> Imaging Data Radiologist's impression: Impressions Chest X-Ray 08/21/24 10:49 IMPRESSION: 1. No acute cardiopulmonary disease. <Radha Rizzo MD - Last Filed: 08/22/24 06:32> ECG Data EKG #1: Attestation: I personally reviewed and interpreted this ECG as follows: <Radha Rizzo MD - Last Filed: 08/22/24 06:32> ECG completion date: 08/21/24 <Radha Rizzo MD - Last Filed: 08/22/24 06:32> ECG completion time: 09:59 <Radha Rizzo MD - Last Filed: 08/22/24 06:32> Interpretation: normal sinus rhythm at a rate of 63 beats per minute. MS interval 186. QRS 93. QT/ QTC 423/431. EKG suggests possible left atrial enlargement however P-waves in lead 2 are not particularly bifid. good R-wave progression across the precordial leads. Leftward leaning axis deviation as QRS is positive in 1 and negative in 3 and AVF and trending towards negative in 2. T-wave inversion lead 3 otherwise upright in normal in contiguous inferior leads 2 and AVF. Mild T-wave flattening in V3 but otherwise upright in contiguous V4. <Radha Rizzo MD - Last Filed: 08/22/24 06:32> EKG #2: Attestation: I personally reviewed and interpreted this ECG as follows: <Radha Rizzo MD - Last Filed: 08/22/24 06:32> ECG completion date: 08/21/24 <Radha Rizzo MD - Last Filed: 08/22/24 06:32> ECG completion time: 12:53 <Radha Rizzo MD - Last Filed: 08/22/24 06:32> Interpretation: sinus bradycardia at a rate of 57 beats per minute. MS interval 198. QRS 104. QT/ QTC 430/423. Again, P-waves are not particularly bifid in lead 2. Borderline left axis deviation as before. Nonspecific T-wave abnormalities as before. <Radha Rizzo MD - Last Filed: 08/22/24 06:32> Critical Care Time Critical Care Time Critical Care Time: No <Cheryl Nails PA-C - Last Filed: 08/21/24 18:56> Discharge Plan Discharge Clinical Impression: Chest pain <Cheryl Nails PA-C - Last Filed: 08/21/24 18:56> Instructions: Antibiotic Form, Chest Pain (ED) <Cheryl Nails PA-C - Last Filed: 08/21/24 18:56> Additional Instructions: As we discussed, no clear etiology for her chest pain symptoms. You are otherwise low risk and thus recommend outpatient workup. You can either follow-up with the brush clearer surveying would previously seen through [facility] or, if you need an alternative, the name of a brush clearer surveying if listed below. It is safe to take the medications that have been prescribed for pain and they are even safe to take together. return to the emergency department with any new or worsening symptoms. <Cheryl Nails PA-C - Last Filed: 08/21/24 18:56> Prescriptions: New ibuprofen 600 mg tablet 600 mg PO TID PRN (Reason: pain) Qty: 20 0RF acetaminophen 500 mg capsule 1,000 mg PO Q6H PRN (Reason: pain) Qty: 20 0RF No Action cyclobenzaprine 5 mg tablet 5 mg PO HS PRN (Reason: muscle spasm) Qty: 7 0RF cyclobenzaprine 10 mg tablet 10 mg PO TID PRN (Reason: muscle spasm) Qty: 14 0RF ibuprofen 600 mg tablet 600 mg PO Q6H PRN (Reason: pain) Qty: 14 0RF <Cheryl Nails PA-C - Last Filed: 08/21/24 18:56> Follow-up/Referrals: Barrie Knott DO [Physician] - ( cardiology) UNKNOWN,DOCTOR [Non-Staff] - <Cheryl Nails PA-C - Last Filed: 08/21/24 18:56> Stand Alone Forms: Work/School Release IP <Cheryl Nails PA-C - Last Filed: 08/21/24 18:56> Time of Disposition: 14:24 <Cheryl Nails PA-C - Last Filed: 08/21/24 18:56> 14:24 <Radha Rizzo MD - Last Filed: 08/22/24 06:32>
--- NOTE | 2024-08-21 12:03 | PC.NURSE ---
Patient states she is not and does not need a bedside test.
[2024-08-21] MEDS: KETOROLAC 15 MG/ML VIAL (*BKC) IV PUSH (12:39)
[2024-08-21 12:40] VITALS: O2SAT 98
--- NOTE | 2024-08-21 12:47 | ECG_ITS ---
Test Date: 2024-08-21 12:53:33 Measurements Intervals [place] Rate: 57 P: 52 [place]: 198 QRS: -21 QRSD: 104 T: 11 QT: 430 QTc: 419 Interpretive Statements SINUS BRADYCARDIA POSSIBLE LEFT ATRIAL ENLARGEMENT DELAYED PRECORDIAL R/S TRANSITION NONSPECIFIC ST & T-WAVE ABNORMALITY- ANT/INF LEADS BORDERLINE ECG Compared to ECG 08/21/2024 09:59:19 HEART RATE HAS DECREASED Electronically Signed On 08-21-2024 13:36:35 CDT by Barrie Knott D.O.
[2024-08-21 13:18] LABS: NT Pro B Type Natriuretic Pept 46 pg/mL (19.9-100)
[2024-08-21 13:24] LABS: Troponin I < 0.012 ng/mL (0.000-0.034)
== END 2024-08-21 14:34 | disposition home or self-care (01) ==
PROVIDERS: Physician Assistant; Emergency Provider Student in an Organized Health Care Education/Training Program; PCP Family Medicine
DX: R07.9 Chest pain, unspecified (principal)
CPT/HCPCS: 36415; 71046; 80053; 83690; 83880; 84484; 85025; 85380; 85610; 85730; 93005; 96374; 99284; J1885

== ENCOUNTER 2025-02-24 08:45 | Emergency (ER) | payer OTHER, SELFPAY ==
[2025-02-24 08:52] VITALS: BP 119/80; PULSE 67; RESP 18; TEMP 36.6; O2SAT 100
--- OUTSIDE RECORDS SUMMARY | 2025-02-24 08:55 | XMS_ITS | Encounter Summary ---
Author Organization [facility] Healthcare Address [address] [place] [address] Care Team Providers Care Belting Cutter Name Role Phone Colby Diaz MD Unavailable [phone] Teresa Degroot NP Unavailable Suzanne Dudley OFFICE ELECTRICIAN Unavailable [phone] Deandra Sorto MD Unavailable [phone] Nemesio Christianson MD Primary Care Provider [phone] Encounter Details Date Type Department Care Team (Late st Contact Info) Description 02/03/2025 Results Follow-Up [facility] [address] [place] [address] [address] [place] [address] Deandra Sorto MD [address] [place] [id number] Social History Tobacco Use Types Packs/Day Years Used Date Smoking Tobacco: Never Smokeless Tobacco: Never Comments:No mj or street dacia gs Alcohol Use Standard Drinks/Week Comments Not Currently 0 (1 standard drink = 0.6 oz pur e alcohol) Humiliation, Afraid, Rape, and Kick questionnair e Answer Date Recorded Within the last year, have y ou been afraid of your partner or ex-partner? No 01/28/2025 Within the last year, have y ou been humiliated or emotionally abused in other ways by your partner or ex-partner? No Within the last year, have y ou been kicked, hit, slapped, or otherwise physically hurt by your partner or ex-partner? No 01/28/2025 Within the last year, have y ou been raped or forced to have any kind of sexual activity by your partner or ex-partner? No 01/28/2025 AUDIT-C Answer Date Recorded Q1: How often do you have a drink containing alc ohol? Never 01/28/2025 Q2: How many drinks containi ng alcohol do you have on a typical day when you are drinking? 1 or 2 01/28/2025 Q3: How often do you have six or more drinks on one occasion? Never 01/28/2025 PHQ-2 Answer Date Recorded PHQ-2 Total Score (If total score is 3 or more points, staff should administer the PHQ-9) 0 01/28/2025 Personal Safety Answer Date Recorded Have you ever been in or are you currently in a harmful physical or emotional relationship or is someone making you feel afraid or unsafe? Denies 12/28/2024 Comments No Sex and Gender Information Value Date Recorded Sex Assigned at Not on file Legal Sex Female 4:14 AM [employer] WORK[employer] Gender Identity Female 01/26/2021 10:41 PM CDT Sexual Orientation Bisexual 01/26/2021 10 :41 PM CDT documented as of this encounter Plan of Treatment Not on file documented as of this encounter Visit Diagnoses Not on filedocumented in this encounter Care Teams Belting Cutter Relationship Specialty Start Date End Date Nemesio Christianson MD [facility] [place] [address] PCP - General Internal Medicine 12/28/24 Colby Diaz MD Consulting Physician Gastroenterology 10/05/22 Teresa Degroot NP [address] [place] [address] [place] [address] Nurse Practitioner Obstetrics and Gynecology 04/16/23 Suzanne Dudley NP [address] [place] [address] Nurse Practitioner Family Medicine 04/16/23 Deandra Sorto MD [address] [place] [address] [place] [address] Consulting Physician Obstetrics and Gynecology 09/18/23 documented as of this encounter
--- OUTSIDE RECORDS SUMMARY | 2025-02-24 08:55 | XMS_ITS ---
Author Organization [facility] Address [address] [place] [address] Care Team Providers Care Case Management Director Name Role Phone Colby Diaz MD Unavailable [phone] Teresa Degroot NP Unavailable Suzanne Dudley LOAN INTERVIEWER Unavailable [phone] Deandra Sorto MD Unavailable [phone] Nemesio Christianson MD Primary Care Provider [phone] Active Problems Problem Noted Date Diagnosed Date DUB (dysfunctional uterine bleeding) 02/04/2025 Overview (02/04/2025): The metformin may help with this Options discussed Well woman exam 02/04/2025 Assessment & Plan (02/04/2025 3:11 PM CDT): Pap done. RTO 12m. I will send the results to the portal. If she has not heard in a week, to call the office. Left lower quadrant pain 11/22/2023 Assessment & Plan (11/22/2023 12:36 PM DRY CELL ASSEMBLY SUPERVISOR): This is possibly a trigger point and we discussed icing b.i.d. To ultrasound to rule out intra-abdominal pathology She will follow-up with Teresa at her January 15 scheduled appointment. High grade squamous intraepi thelial lesion (HGSIL), grade 3 JORDYN, on biopsy of cervix 05/31/2023 Overview (02/04/2025): 09/23/23- JORDYN 3 with positive margins at 6-9 oclock. 12/2023- ascus 06/2024- wnl 01/2025- pap repeated Assessment & Plan (02/04/2025 3:08 PM CDT): Pap ws repeated today Assessment & Plan (11/22/2023 12:36 PM DRY CELL ASSEMBLY SUPERVISOR): The cervix is healing well The friable part was treated with silver nitrate Will see if this happens again Assessment & Plan (10/03/2023 3:17 PM DRY CELL ASSEMBLY SUPERVISOR): Results reviewed She voices understanding Will plan to repeat pap q 4 months for the first year Then q 6m for the year after that. Assessment & Plan (09/16/2023 2:16 PM DRY CELL ASSEMBLY SUPERVISOR): Will proceed as planned. Assessment & Plan (07/20/2023 11:59 AM CDT): Results reviewed To [facility] Procedure reviewed along with risk, benefits and alternatives as they pertain to her specifically. Questions answered Post op pain management discussed. She voices understanding and desired to proceed. Assessment & Plan (06/13/2023 10:53 AM CDT): Colpo done without difficulty Assessment & Plan (05/31/2023 12:23 PM CDT): Strongly encouraged patient to keep colposcopy appointment scheduled in 2 weeks. Importance of following up on HSIL pap voiced numerous times including cervical cancer. She verbalized understanding. Vitamin D deficiency 01/24/2023 Assessment & Plan (08/17/2024 11:45 AM CDT): - chronic, better controlled - most recent lab as shown below - currently on Vitamin D3 10,000 international units daily - continue current management Lab Results Component Value Date 25HYDROVITD 48 08/13/2024 25HYDROVITD 17 (L) 12/11/2023 25HYDROVITD 19 (L) 04/10/2023 25HYDROVITD 25 (L) 08/01/2022 25HYDROVITD 33 04/19/2021 Assessment & Plan (05/24/2024 11:14 PM CDT): - chronic, not well controlled - most recent lab as shown below - she had been taking Vitamin D3 5000 international units daily --> [place] [address] [place] daily on prior visit which is what she is doing now - recheck lab, order placed Lab Results Component Value Date 25HYDROVITD 17 (L) 12/11/2023 25HYDROVITD 19 (L) 04/10/2023 25HYDROVITD 25 (L) 08/01/2022 25HYDROVITD 33 04/19/2021 25HYDROVITD 18 (L) 08/25/2020 Assessment & Plan (12/12/2023 5:05 AM DRY CELL ASSEMBLY SUPERVISOR): - chronic, not well controlled - worse - supposed to be on vitamin D3 5000 units daily --> will ask if there is issue with adherence to plan of care - check lab, order placed with result as shown below Lab Results Component Value Date 25HYDROVITD 17 (L) 12/11/2023 25HYDROVITD 19 (L) 04/10/2023 25HYDROVITD 25 (L) 08/01/2022 25HYDROVITD 33 04/19/2021 25HYDROVITD 18 (L) 08/25/2020 Assessment & Plan (01/24/2023 12:28 PM CDT): -chronic, stable -continue on vitamin D3 5000 units daily History of irregular menstrual cycles 11/09/2022 Assessment & Plan (05/31/2023 12:24 PM CDT): Options including Progestin only pill, IUD, Nexplanon, or cycling provera discussed again. Weight loss also encouraged. She would like to try a daily progestin only pill. Assessment & Plan (11/09/2022 12:11 PM DRY CELL ASSEMBLY SUPERVISOR): Discussed irregular cycles and PCOS in depth. We will plan for PCOS labs and pelvic ultrasound. Discussed that depending on results we can discuss possibly cycling Provera as she is uninterested in a daily hormonal method at this time. Dyslipidemia 10/05/2022 Assessment & Plan (08/17/2024 11:48 AM CDT): - chronic condition, not at goal - had been out of her statin - she used to be on Pravastatin 20 mg daily (started by prior PCP in the past which she was not taking due to leg pains but then got switched to Atorvastatin 40 mg daily by cardiology --> in the past I asked her to start taking Atorvastatin three days a week instead Saturday, Saturday and Fridays and states she has resumed taking it - most recent LDL as shown below - on 12/14 - states she had stopped statin prescribed by cardiology due to it bothering her legs , patient stated she stopped taking it 09/09/23- but she has since started taking it again. - refill provided as she had been out of it - restart Atorvastatin 40 gm daily, script sent in Lab Results Component Value Date CHOL 199 08/13/2024 CHOL 186 12/11/2023 CHOL 165 04/10/2023 Lab Results Component Value Date HDL 35 (L) 08/13/2024 HDL 32 (L) 12/11/2023 HDL 33 (L) 04/10/2023 Lab Results Component Value Date LDLCALC 152 (H) 08/13/2024 LDLCALC 140 (H) 12/11/2023 LDLCALC 116 04/10/2023 Lab Results Component Value Date TRIG 65 08/13/2024 TRIG 70 12/11/2023 TRIG 79 04/10/2023 Assessment & Plan (05/24/2024 11:13 PM CDT): - chronic condition, not at goal - she used to be on Pravastatin 20 mg daily (started by prior PCP in the past which she was not taking due to leg pains but then got switched to Atorvastatin 40 mg daily by cardiology --> in the past I asked her to start taking Atorvastatin three days a week instead Saturday, Saturday and Fridays and states she has resumed taking it - most recent LDL as shown below - on 12/14 - states she had stopped statin prescribed by cardiology due to it bothering her legs , patient stated she stopped taking it 09/09/23- but she has since started taking it again. - recheck labs, order placed to check on status Lab Results Component Value Date CHOL 186 12/11/2023 CHOL 165 04/10/2023 CHOL 187 08/01/2022 Lab Results Component Value Date HDL 32 (L) 12/11/2023 HDL 33 (L) 04/10/2023 HDL 35 (L) 08/01/2022 Lab Results Component Value Date LDLCALC 140 (H) 12/11/2023 LDLCALC 116 04/10/2023 LDLCALC 137 (H) 08/01/2022 Lab Results Component Value Date TRIG 70 12/11/2023 TRIG 79 04/10/2023 TRIG 76 08/01/2022 Assessment & Plan (12/12/2023 5:07 AM DRY CELL ASSEMBLY SUPERVISOR): - chronic condition, not at goal, worse - she used to be on Pravastatin 20 mg daily (started by prior PCP in the past which she was not taking due to leg pains but then got switched to Atorvastatin 40 mg daily by cardiology --> in the past I asked her to start taking Atorvastatin three days a week instead Saturday, Saturday and Fridays - check labs, order placed --> most recent LDL as shown below - question about plan of care or adherence Lab Results Component Value Date CHOL 186 12/11/2023 CHOL 165 04/10/2023 CHOL 187 08/01/2022 Lab Results Component Value Date HDL 32 (L) 12/11/2023 HDL 33 (L) 04/10/2023 HDL 35 (L) 08/01/2022 Lab Results Component Value Date LDLCALC 140 (H) 12/11/2023 LDLCALC 116 04/10/2023 LDLCALC 137 (H) 08/01/2022 Lab Results Component Value Date TRIG 70 12/11/2023 TRIG 79 04/10/2023 TRIG 76 08/01/2022 Assessment & Plan (04/16/2023 9:55 AM CDT): - chronic condition, not at goal - currently was on Pravastatin 20 mg daily but got switched to Atorvastatin 40 mg daily by cardiology but has not been taking it - started in 2019 by prior PCP but has not been taking it due to leg pains --> start taking Atorvastatin three days a week instead Saturday, Saturday and Fridays at first - most recent LDL as shown below - continue current management with changes recommended above Lab Results Component Value Date CHOL 165 04/10/2023 CHOL 187 08/01/2022 CHOL 180 01/22/2022 Lab Results Component Value Date HDL 33 (L) 04/10/2023 HDL 35 (L) 08/01/2022 HDL 38 (L) 01/22/2022 Lab Results Component Value Date LDLCALC 116 04/10/2023 LDLCALC 137 (H) 08/01/2022 LDLCALC 127 01/22/2022 Lab Results Component Value Date TRIG 79 04/10/2023 TRIG 76 08/01/2022 TRIG 73 01/22/2022 Assessment & Plan (01/24/2023 11:35 AM CDT): -chronic, stable -continue on atorvastatin 40 mg daily -lipid panel ordered today -follow up with PCP as scheduled Assessment & Plan (10/05/2022 11:45 AM DRY CELL ASSEMBLY SUPERVISOR): - chronic condition, not at goal - currently on Pravastatin 20 mg daily (no prior statin use other than pravastatin) - started in 2019 by prior PCP - I do not see much improvement, discussed her given chest pain she will be evaluated by cardiology but if needed to betetr address it recommend higher dose or changing medication, but is there a strong indication to treat it at this stage?? - most recent LDL as shown below - continue current management Lab Results Component Value Date CHOL 187 08/01/2022 CHOL 180 01/22/2022 CHOL 167 04/19/2021 Lab Results Component Value Date HDL 35 (L) 08/01/2022 HDL 38 (L) 01/22/2022 HDL 36 (L) 04/19/2021 Lab Results Component Value Date LDLCALC 137 (H) 08/01/2022 LDLCALC 127 01/22/2022 LDLCALC 120 04/19/2021 Lab Results Component Value Date TRIG 76 08/01/2022 TRIG 73 01/22/2022 TRIG 54 04/19/2021 Psychophysiological insomnia 10/05/2022 Assessment & Plan (05/24/2024 11:09 PM CDT): - chronic,controlled - currently on Hydroxyzine 25 mg 1/2 tablet at night as needed only - on medication for anxiety and depression as well - continue management Assessment & Plan (10/05/2022 11:34 AM DRY CELL ASSEMBLY SUPERVISOR): - chronic,controlled - currently on Hydroxyzine 25 mg 1/2 tablet at night as needed only - continue management Atypical chest pain 10/05/2022 Assessment & Plan (09/11/2024 8:14 AM DRY CELL ASSEMBLY SUPERVISOR): - atypical chest pain, recurring condition, recently seen in ED 08/2024 - chronic in nature for years, at rest, non-exertional, sharp in quality - saw ECG impression from ED which was concerning to her in the past - prior PCP had obtained Echo which is as shown eblow - mother has valve disorder that required replacement - has known GERD - saw GI for this in past, had H. Pylori infection which was treated, has been off her Famotidine - has had EGD and colonoscopy - requested to see Cardiology and got evaluated in 2022 - she has had Echocardiogram and stress test with no concerning finding - states told it may be related to anxiety - at thi stime since she has been without her Famotidine, recommend restarting it 40 mg BID for 2 weeks and then Famotidine 40 mg daily, script sent in Stress test 12/2022 Conclusions: 1. Negative Lexiscan pharmacologic stress test for chest pain or EKG changes. Conclusions: 1. Myocardial Perfusion: Probably normal rest and stress images. 2. There was a differential perfusion defect, worse on rest images, likely consistent with breast attenuation artifact. No ischemia noted. 3. Left ventricle: Normal size and systolic function (EF >50%). Echo 12/2022 Conclusions: Normal left ventricular systolic function with no focal wall motion abnormalities. Normal left ventricular size. Normal left ventricular wall thickness. Normal left ventricular diastolic function. Ejection fraction is visually estimated at 60 %. There is mild enlargement of left atrium. Echo 10/2021 Conclusions: Normal global left ventricular systolic function. Ejection fraction is visually estimated at 55 to 60 %. Normal structure of the mitral valve. Trivial regurgitation of the mitral valve. Normal structure of the aortic valve. Normal structure of the tricuspid valve. Trivial regurgitation in the tricuspid valve. Assessment & Plan (09/09/2023 10:37 AM DRY CELL ASSEMBLY SUPERVISOR): - atypical chest pain, less frequent - chronic in nature for years, at rest, non-exertional, sharp in quality - seen in ED x2 for this recently - saw ECG impression from ED which was concerning to her - prior PCP had obtained Echo which is as shown eblow - states mother has valve disorder that required replacement - has known GERD - seeing GI for this, only taking famotidine PRN only - has had EGD and colonoscopy - requested to see Cardiology, referral placed and she was seen - she has had Echocardiogram and stress test with no concerning finding - states told it may be related to anxiety, see plan for anxiety management - Echo as shown below Echo 10/2021 Conclusions: Normal global left ventricular systolic function. Ejection fraction is visually estimated at 55 to 60 %. Normal structure of the mitral valve. Trivial regurgitation of the mitral valve. Normal structure of the aortic valve. Normal structure of the tricuspid valve. Trivial regurgitation in the tricuspid valve. Assessment & Plan (04/16/2023 9:48 AM CDT): - atypical chest pain - chronic in nature for years, at rest, non-exertional, sharp in quality - seen in ED x2 for this recently - saw ECG impression from ED which was concerning to her - prior PCP had obtained Echo which is as shown eblow - states mother has valve disorder that required replacement - has known GERD - seeing GI for this, only taking famotidine PRN only - has had EGD and colonoscopy - requested to see Cardiology, referral placed and she was seen - she has had Echocardiogram and stress test with no concerning finding - will be setting up follow up appointment with cardiology - Echo as shown below Echo 10/2021 Conclusions: Normal global left ventricular systolic function. Ejection fraction is visually estimated at 55 to 60 %. Normal structure of the mitral valve. Trivial regurgitation of the mitral valve. Normal structure of the aortic valve. Normal structure of the tricuspid valve. Trivial regurgitation in the tricuspid valve. Assessment & Plan (10/05/2022 1:47 PM DRY CELL ASSEMBLY SUPERVISOR): - atypical chest pain - chronic in nature for years, at rest, non-exertional, sharp in quality - seen in ED x2 for this recently - saw ECG impression from ED which is concerning to her - prior PCP had obtained Echo which is as shown eblow - states mother has valve disorder that required replacement - has known GERD - seeing GI for this, only taking famotidine PRN only - has had EGD and colonoscopy - would like to see Cardiology, referral placed - Echo as shown below Echo 10/2021 Conclusions: Normal global left ventricular systolic function. Ejection fraction is visually estimated at 55 to 60 %. Normal structure of the mitral valve. Trivial regurgitation of the mitral valve. Normal structure of the aortic valve. Normal structure of the tricuspid valve. Trivial regurgitation in the tricuspid valve. Moderate episode of recurrent major depressive d isorder 07/09/2022 Assessment & Plan (08/17/2024 11:44 AM CDT): - chronic condition, improved control - mixed symptoms of anxiety and depression - currently on Lexapro 10 mg daily - continue current management with changes made above Lab Results Component Value Date TSH 2.19 08/13/2024 Assessment & Plan (05/24/2024 11:07 PM CDT): - chronic condition, stable - mixed symptoms of anxiety and depression - currently on Lexapro 10 mg daily - continue current management with changes made above Lab Results Component Value Date TSH 1.97 12/11/2023 Assessment & Plan (12/11/2023 8:57 AM DRY CELL ASSEMBLY SUPERVISOR): - chronic condition, better controlled - mixed symptoms of anxiety and depression - states it is getting better - currently on Lexapro 10 mg daily - continue current management with changes made above Lab Results Component Value Date TSH 2.43 04/10/2023 Assessment & Plan (09/09/2023 8:57 AM DRY CELL ASSEMBLY SUPERVISOR): - chronic condition, not well controlled with persistent symptoms - mixed symptoms of anxiety and depression - states it is getting better - was on Lexapro 10 mg daily but not on it daily, states only takes it PRN --> explained type of medication it is, will restart medication and to be taken daily, new script sent in - continue current management with changes made above Lab Results Component Value Date TSH 2.43 04/10/2023 Assessment & Plan (10/05/2022 11:34 AM DRY CELL ASSEMBLY SUPERVISOR): - chronic condition, controlled with persistent symptoms - mixed symptoms of anxiety and depression - states it is getting better - currently on Lexapro 10 mg daily - continue current management Lab Results Component Value Date TSH 2.05 08/01/2022 Assessment & Plan (08/01/2022 6:43 AM CDT): Patient reiterated no suicidal thoughts at this time; take medication as directed; contact 911 and go to the ER if becomes suicidal; discussed side effects of medication with patient; encouraged healthy diet and exericise; encouraged patient to see a counselor HPI: Condition is stable A&P: Discussed/ordered labs, encouraged healthy, low carbohydrate lifestyle and at least 150min/week of exercise, at last office visit we increased lexapro to 10mg daily and tried pt on hydroxyzine 25mg 1/2-1 tablet at bedtime to help pt sleep. Encouraged no daytime napping. Pt was given a list of counselors. She is f/u on this condition on 08/24/[address] Thakkar. it is too early to tell if meds are working today Assessment & Plan (07/09/2022 2:01 PM CDT): HPI: Condition is not at/near goal A&P: Discussed/ordered labs, encouraged healthy, low carbohydrate lifestyle and at least 150min/week of exercise, increase lexapro to 10mg daily, trial on hydroxyzine 25mg 1/2-1 tablet at bedtime to help you sleep. No daytime napping allowed. F\u with Dr. Thakkar in 6-8 wks LAURA (generalized anxiety disorder) 07/09/2022 Assessment & Plan (09/11/2024 7:57 AM DRY CELL ASSEMBLY SUPERVISOR): - chronic condition, controlled/stable - mixed symptoms of anxiety and depression - currently on Lexapro 10 mg daily - continue current management Lab Results Component Value Date TSH 2.19 08/13/2024 Assessment & Plan (08/17/2024 11:44 AM CDT): - chronic condition, improved control - mixed symptoms of anxiety and depression - currently on Lexapro 10 mg daily - continue current management Lab Results Component Value Date TSH 2.19 08/13/2024 Assessment & Plan (05/24/2024 11:07 PM CDT): - chronic condition, stable/controlled - mixed symptoms of anxiety and depression - currently on Lexapro 10 mg daily - continue current management Lab Results Component Value Date TSH 1.97 12/11/2023 Assessment & Plan (12/11/2023 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): - chronic condition, better controlled - mixed symptoms of anxiety and depression - states it is getting better - currently on Lexapro 10 mg daily - continue current management Lab Results Component Value Date TSH 2.43 04/10/2023 Assessment & Plan (09/09/2023 8:57 AM DRY CELL ASSEMBLY SUPERVISOR): - chronic condition, not well controlled with persistent symptoms - mixed symptoms of anxiety and depression - states it is getting better - was on Lexapro 10 mg daily but not on it daily, states only takes it PRN --> explained type of medication it is, will restart medication and to be taken daily, new script sent in - continue current management with changes made above Lab Results Component Value Date TSH 2.43 04/10/2023 Assessment & Plan (10/05/2022 11:33 AM DRY CELL ASSEMBLY SUPERVISOR): - chronic condition, controlled with persistent symptoms - mixed symptoms of anxiety and depression - states it is getting better - currently on Lexapro 10 mg daily - continue current management Lab Results Component Value Date TSH 2.05 08/01/2022 Assessment & Plan (08/01/2022 10:11 AM CDT): Patient reiterated no suicidal thoughts at this time; take medication as directed; contact 911 and go to the ER if becomes suicidal; discussed side effects of medication with patient; encouraged healthy diet and exericise; encouraged patient to see a counselor HPI: Condition is stable A&P: Discussed/ordered labs, encouraged healthy, low carbohydrate lifestyle and at least 150min/week of exercise, at last office visit we increased lexapro to 10mg daily and tried pt on hydroxyzine 25mg 1/2-1 tablet at bedtime to help pt sleep. Encouraged no daytime napping. Pt was given another list of counselors as she reports she lost the last one. She is f/u on this condition on 08/24/[address] Thakkar. it is too early to tell if meds are working today Assessment & Plan (07/09/2022 2:01 PM CDT): HPI: Condition is not at/near goal A&P: Discussed/ordered labs, encouraged healthy, low carbohydrate lifestyle and at least 150min/week of exercise, increase lexapro to 10mg daily, trial on hydroxyzine 25mg 1/2-1 tablet at bedtime to help you sleep. No daytime napping allowed. List of counselors given F\u with Dr. Thakkar in 6-8 wks Gastroesophageal reflux disease without esophagi tis 05/23/2022 Assessment & Plan (10/05/2022 11:35 AM DRY CELL ASSEMBLY SUPERVISOR): - chronic, stable - follows with GI - has Famotidine 40 mg BID PRN only from GI - continue management per GI Assessment & Plan (08/01/2022 10:12 AM CDT): HPI: Condition is stable Continue on current meds famotidine 40 mg twice daily as needed, probiotics 50 billion daily, encouraged healthy diet and exercise. Pt reports she has been doing well without flares since her H. Pylori was treated. Avoid trigger foods including: carbonated beverages, caffeine, spicy, fried foods, tomatoes, cucumbers, mint, and acidic fruits/juices like orange/lemon/grapefruit. Avoid eating/drinking anything for at least 2 hours before bed. Sleep with bed propped. Helicobacter pylori infection 05/22/2022 Assessment & Plan (08/01/2022 10:13 AM CDT): Condition has improved. Patient had EGD on 03/27/[address] Diaz. Positive for H pylori. Patient treated with amoxicillin 500 mg 2 tabs twice daily for 14 days. Clarithromycin 500 mg twice daily for 14 days. Omeprazole 20 mg twice daily for 14 days. At 6 week follow-up patient to start famotidine and Tums as needed. Stool study ordered but not completed. Pt to go to hospital to get stool study cup and hat. Chronic superficial gastritis without bleeding 0 05/22/2022 Assessment & Plan (08/01/2022 6:45 AM CDT): HPI: Condition is stable Continue on current meds famotidine 40 mg twice daily as needed, probiotics 50 billion daily, encouraged healthy diet and exercise Avoid trigger foods including: carbonated beverages, caffeine, spicy, fried foods, tomatoes, cucumbers, mint, and acidic fruits/juices like orange/lemon/grapefruit. Avoid eating/drinking anything for at least 2 hours before bed. Sleep with bed propped. History of cold sores 05/02/2022 Assessment & Plan (08/01/2022 6:58 AM CDT): HPI: Condition is stable A&P: Discussed/ordered labs, encouraged healthy, low carbohydrate lifestyle and at least 150min/week of exercise, continue using Valacyclovir 1 gram (2) tablets twice daily as needed when cold sore present. Abdominal pain 03/22/2022 Overview (03/22/2022): refer to GI. previous workup in October unremarkable. probiotic 20-50billion CFU daily stop the famotidine, start on omeprazole 20mg daily Dyspepsia 03/22/2022 Assessment & Plan (09/11/2024 8:15 AM DRY CELL ASSEMBLY SUPERVISOR): - chronic condition with recurrence of symptoms In past established with GI and evaluated in the past for abdominal pain, dyspepsia and GERD, H, Pylori infection (treated with triple therapy) and chronic superficial gastritis. Last visit was back in 05/22/2022. 03/27/22- Colonoscopy with Dr. Diaz: Normal. Random colon biopsies negative for microscopic colitis. Advised to repeat at age 46 for colon cancer screening purposes. 03/27/22- EGD with Dr. Diaz: Single gastric polyp was resected and retrieved. Otherwise, normal appearing esophagus, duodenum, and stomach. H. Pylori + based on SHERRY test results. Biopsy results revealed benign antral type gastric mucosa demonstrating acute and chronic inflammation with reactive epithelial changes. IHC stain was also positive for H.Pylori. Advised to repeat EGD only as needed. 11/07/21- Abd US: Unremarkable. GB/Liver normal. She has been on famotidine 40mg BID since then after coming off PPI per documentation. They had documented retesting for H. Pylori if symptoms return. She has been having mild epigastric discomfort and regurgitation Retest H. Pylori - stool study ordered Restart Taking famotidine 40 mg BID for 2 weeks and then 40 mg daily, script sent in Assessment & Plan (08/01/2022 7:00 AM CDT): HPI: Condition is stable Continue on current meds famotidine 40 mg twice daily as needed, probiotics 50 billion daily, encouraged healthy diet and exercise Avoid trigger foods including: carbonated beverages, caffeine, spicy, fried foods, tomatoes, cucumbers, mint, and acidic fruits/juices like orange/lemon/grapefruit. Avoid eating/drinking anything for at least 2 hours before bed. Sleep with bed propped. Patient had EGD on 03/27/[address] Diaz. Positive for H pylori. Patient treated with amoxicillin 500 mg 2 tabs twice daily for 14 days. Clarithromycin 500 mg twice daily for 14 days. Omeprazole 20 mg twice daily for 14 days. At 6 week follow-up patient to start famotidine and Tums. Stool study ordered but not completed. Allergic rhinitis 02/14/2021 Assessment & Plan (08/01/2022 7:01 AM CDT): HPI: Condition is stable A&P: Discussed environmental controls No smoking around patient, no animals in bedroom, keep windows closed, no hanging clothes on the line Take zyrtec/claritin/liam in the am Saline rinse in the am Flonase 1 sprays each nostril, aim away from cartilage, spray once-baby sniff, switch to the other nostril and repeat. Saline rinse about 15 min before bed Flonase 1 sprays each nostril, aim away from cartilage, spray once-baby sniff, switch to the other nostril and repeat. If working or playing outside, may need to do saline rinses when coming in and change clothes right away Recommend staying on the above treatment from the beginning of December to Come off of meds if possible during the summer Then restart on meds mid to may until Thanksgiving Come off of meds if possible during the winter Assessment & Plan (02/14/2021 8:55 AM CDT): HPI: Condition is worsening A&P: Discussed environmental controls No smoking around patient, no animals in bedroom, keep windows closed, no hanging clothes on the line Take zyrtec/claritin/liam in the am Saline rinse in the am Saline rinse about 15 min before bed Flonase 2 sprays each nostril, aim away from cartilage, spray once-baby sniff, switch to the other nostril and repeat. Wait a min or two and then do the second spray in each nostril, followed by a baby sniff If working or playing outside, may need to do saline rinses when coming in and change clothes right away Recommend staying on the above treatment from the of December to Come off of meds if possible during the summer Then restart on meds mid to may until Thanksgiving Come off of meds if possible during the winter Migraine with aura and witho ut status migrainosus, not intractable 08/25/2020 Assessment & Plan (08/17/2024 11:53 AM CDT): - chronic, well controlled - without aura - gets light sensitivity, nausea and often unilateral - in past had reaction with Rizatriptan 10 mg PRN so no longer on it - currently on Topamax 50 mg BID, refill provided - tried to establish care with neurology but has not - continue current management Assessment & Plan (12/11/2023 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): - chronic, not well controlled - without aura - has Ibuprofen 800 mg prn which she does not use - gets light sensitivity, nausea and often unilateral - currently on Rizatriptan 10 mg PRN but states has not been working well for her - has been taking OTC medications as well - recent ED visit - currently on Topamax 50 mg BID, refill provided - waiting to see neurology - would like to see neurology --> referral placed - continue current management Assessment & Plan (09/09/2023 8:59 AM DRY CELL ASSEMBLY SUPERVISOR): - chronic, not well controlled - without aura - has Ibuprofen 800 mg prn which she does not use - gets light sensitivity, nausea and often unilateral - currently on Rizatriptan 10 mg PRN but states has not been working well for her - has been taking OTC medications as well - recent ED visit - start Topamax - taper up dose sent in - would like to see neurology --> referral placed - continue current management with changes made above Assessment & Plan (10/05/2022 11:38 AM DRY CELL ASSEMBLY SUPERVISOR): - chronic, under control - very infrequent - without aura - has Ibuprofen 800 mg prn which she does not use - currently on Rizatriptan 10 mg PRN - continue current management Assessment & Plan (08/01/2022 10:24 AM CDT): HPI: Condition is not at/near goal. Pt reports 2-3 migraines/week. Pt reports headaches lasting up to a week each. Pt having more than 15 migraine days per month. A&P: Discussed/ordered labs, encouraged healthy, low carbohydrate lifestyle and at least 150min/week of exercise. Ibuprofen 800mg as needed; discussed proper use of a triptan-taking within 30min of onset of headache, may repeat in 2 hours if headache not improved, not to exceed 2 in 24 hours; may use zofran as needed for nausea; discussed keeping headache diary Discussed avoiding all caffeine: no soda, tea, coffee, chocolate; no wine; no sharp cheeses; no processed meats like hot dogs or bologna; no MSG as found in serbian food; no more than 1/2 banana a day; no artificial sweeteners; fresh bread (less than 24 hours old) Avoid using tylenol, ibuprofen or aleve more than twice a week or else you can cause medication overuse/rebound headaches. You may be causing the headaches with the medications you are taking to get rid of them. Be sure to push lots of water as dehydration is a big cause of headaches. We will give maxalt (rizatriptan) to use for abortive therapy. We will also give zofran (ondansetron) to use for nausea. If not improving, may need preventive medication, bring in PINTO diary to f/u visit Assessment & Plan (08/25/2020 11:19 AM DRY CELL ASSEMBLY SUPERVISOR): HPI: Condition is worsening A&P: Discussed/ordered labs, encouraged healthy, low carbohydrate lifestyle and at least 150min/week of exercise, she went to the ER last mo with headache and they gave her a shot that helped. Ibuprofen 800mg as needed; discussed keeping a headache diary; discussed avoiding all caffeine, no wine, no soda, tea, coffee, chocolate, no sharp cheeses, no processed meats, no hot dogs, no MSG as found in serbian food, no more than 1/2 banana a day, no artificial sweeteners, fresh bread (less than 24 hours old); drink lots of water. Morbid obesity with BMI of 40.0-44.9, adult 02/2020 Assessment & Plan (08/17/2024 11:56 AM CDT): Wt Readings from Last 3 Encounters: 08/17/24 109.6 kg (241 lb 11.2 oz) 07/20/24 113.4 kg (250 lb) 04/13/24 111.1 kg (245 lb) Body mass index is 42.83 kg/m . - chronic condition, not at goal but improved - BMI Follow-up includes: nutrition counseling, exercise counseling and education - interested in assistance with weight loss - states she stays active and does not eat much but on more discussion she does have a habit of eating/snacking at night and watching tv - she would benefit with dietary counseling, referral placed in the past but has not taken place - Co morbidities - has dyslipidemia - in past inquired about weight loss via medications --> insurance was not going to cover without diagnosis of diabetes and does not cover just for weight loss - currently on phentermine 30 mg daily (did not like how the 37.5 mg made her feel) - started phentermine around 01/2024 (with weight of around 258) Staff 12/14 - told her it will be denied without diagnosis of Diabetes 01/11 - received a letter from her insurance company that weight loss treatments are not covered by her plan 02/11 - requested phentermine for weight loss Assessment & Plan (05/24/2024 11:09 PM CDT): Wt Readings from Last 3 Encounters: 04/13/24 111.1 kg (245 lb) 03/23/24 111.1 kg (245 lb) 01/16/24 116.6 kg (257 lb) Body mass index is 43.41 kg/m . - chronic condition, not at goal but improved - BMI Follow-up includes: nutrition counseling, exercise counseling and education - interested in assistance with weight loss - states she stays active and does not eat much but on more discussion she does have a habit of eating/snacking at night and watching tv - she would benefit with dietary counseling, referral placed in the past but has not taken place - Co morbidities - has dyslipidemia - in past inquired about weight loss via medications --> insurance was not going to cover without diagnosis of diabetes and does not cover just for weight loss - currently on phentermine 37.5 mg daily for weight loss, continue therapy Staff 12/14 - told her it will be denied without diagnosis of Diabetes 01/11 - received a letter from her insurance company that weight loss treatments are not covered by her plan 02/11 - requested phentermine for weight loss Assessment & Plan (12/11/2023 8:55 AM DRY CELL ASSEMBLY SUPERVISOR): Wt Readings from Last 3 Encounters: 12/11/23 115.7 kg (255 lb) 11/22/23 114.8 kg (253 lb) 10/03/23 116.1 kg (256 lb) Body mass index is 45.18 kg/m . - chronic condition, not at goal/fluctuates - BMI Follow-up includes: nutrition counseling, exercise counseling and education - interested in assistance with weight loss - states she stays active and does not eat much but on more discussion she does have a habit of eating/snacking at night and watching tv - she would benefit with dietary counseling, referral placed in the past but has not taken place - Co morbidities - has dyslipidemia - interested in weight loss medication - Jaylan/Ca, she will call and check with her insurance if they cover weight loss medications as it its [facility] Assessment & Plan (04/16/2023 9:50 AM CDT): Wt Readings from Last 3 Encounters: 04/12/23 112.9 kg (249 lb) 01/24/23 114 kg (251 lb 6.4 oz) 11/29/22 108 kg (238 lb) Body mass index is 42.74 kg/m . - chronic condition, not at goal/fluctuates - BMI Follow-up includes: nutrition counseling, exercise counseling and education - interested in assistance with weight loss - states she stays active and does not eat much but on more discussion she does have a habit of eating/snacking at night and watching tv - she would benefit with dietary counseling, referral placed - Co morbidities - has dyslipedemia Assessment & Plan (01/24/2023 11:35 AM CDT): HPI: Condition is not at/near goal goal BMI <30 A&P: Healthy, high-protein, lower carbohydrate, lower fat lifestyle and exercise for 150min/week recommended Continue on metformin 500 mg once daily for 3-4 weeks and then increase to twice daily as recommended by [employer]. Advised patient it may take longer to notice weight loss with this medication and this medication can be increased if needed. Assessment & Plan (10/05/2022 11:39 AM DRY CELL ASSEMBLY SUPERVISOR): Wt Readings from Last 3 Encounters: 10/05/22 106.6 kg (235 lb) 08/01/22 109.7 kg (241 lb 12.8 oz) 07/19/22 108.9 kg (240 lb) Body mass index is 41.64 kg/m . - chronic condition, not at goal/fluctuates - has dyslipedemia - BMI Follow-up includes: nutrition counseling, exercise counseling and education Assessment & Plan (08/01/2022 7:02 AM CDT): HPI: Condition is not at/near goal goal BMI <30 A&P: Healthy, high-protein, lower carbohydrate, lower fat lifestyle and exercise for 150min/week recommended Recommend tracking everything you put in your mouth on an ana maría like [employer] Lower carb substitutions: [employer] carries a zero net carb bread If you are looking for whole potatoes, like to use in soup or new potato shape/flavor, radishes are a great replacement If you are looking for mashed potatoes, riced cauliflower in the frozen bag section are a great replacement For pasta, try using zucchini noodles, lay them out on a cookie sheet and pat dry with a tea towel to try to remove as much moisture as possible. Heat your pasta sauce on the stove and put the noodles in for 30-45 seconds. If you leave them in much longer they will become mushy Jacob and/or coconut flour instead of regular flour For pizza dough, try fathead pizza dough recipe online. To get a crispy crust, bake on one side for 8-12 min, then flip over and bake on the other side for 8-12 min, then put toppings on and bake until the cheese on top of pizza melts chaffles recipe online For ice cream, try the brand Enlightened To replace coffee creamer and make it low carb, use heavy creamer with sugar free Torani sweetener For chips, try Whisps or pork rinds For yogurt, try Two Good nepali yogurt Use Chance for recipe ideas. Type in low carb... Hand Measurements: A fist or cupped hand = 1 cup 1 cup = 1 -2 servings of fruit juice 1 oz. of cold cereal 2 oz. of cooked cereal, rice or pasta 8 oz. of milk or yogurt A thumb = 1 oz. of cheese Consuming low-fat cheese helps you meet the required servings from the milk, yogurt and cheese group. 1 oz. of low-fat cheese counts as 8 oz. of milk or yogurt. Handful = 1-2 oz. of snack food Thumb tip = 1 teaspoon Keep high-fat foods, such as peanut butter and mayonnaise, at a minimum. One teaspoon is equal to the end of your thumb, from the knuckle up. Three teaspoons equals 1 tablespoon. Palm = 3 oz. of meat Choose lean poultry, fish, shellfish and beef. One palm size portion equals 3 oz. for an adult and 1 -2 oz. for a child under 5. 1 tennis ball or a fist= 1/2 cup of fruit and vegetables Healthy diets include a variety of colorful fruits and vegetables every day. The secret to serving size is in your hand. Snacking can add up. Remember, 1 handful equals 1 oz. of nuts and small candies. For chips and pretzels, 2 handfuls equals 1 oz. Because hand sizes vary, compare your fist size to an actual measuring cup. Assessment & Plan (07/09/2022 2:02 PM CDT): HPI: Condition is not at/near goal goal BMI <30 A&P: Healthy, high-protein, lower carbohydrate, lower fat lifestyle and exercise for 150min/week recommended Recommend tracking everything you put in your mouth on an ana maría like [employer] Lower carb substitutions: [employer] carries a zero net carb bread If you are looking for whole potatoes, like to use in soup or new potato shape/flavor, radishes are a great replacement If you are looking for mashed potatoes, riced cauliflower in the frozen bag section are a great replacement For pasta, try using zucchini noodles, lay them out on a cookie sheet and pat dry with a tea towel to try to remove as much moisture as possible. Heat your pasta sauce on the stove and put the noodles in for 30-45 seconds. If you leave them in much longer they will become mushy Jacob and/or coconut flour instead of regular flour For pizza dough, try fathead pizza dough recipe online. To get a crispy crust, bake on one side for 8-12 min, then flip over and bake on the other side for 8-12 min, then put toppings on and bake until the cheese on top of pizza melts chaffles recipe online For ice cream, try the brand Enlightened To replace coffee creamer and make it low carb, use heavy creamer with sugar free Torani sweetener For chips, try Whisps or pork rinds For yogurt, try Two Good nepali yogurt Use Chance for recipe ideas. Type in low carb... Hand Measurements: A fist or cupped hand = 1 cup 1 cup = 1 -2 servings of fruit juice 1 oz. of cold cereal 2 oz. of cooked cereal, rice or pasta 8 oz. of milk or yogurt A thumb = 1 oz. of cheese Consuming low-fat cheese helps you meet the required servings from the milk, yogurt and cheese group. 1 oz. of low-fat cheese counts as 8 oz. of milk or yogurt. Handful = 1-2 oz. of snack food Thumb tip = 1 teaspoon Keep high-fat foods, such as peanut butter and mayonnaise, at a minimum. One teaspoon is equal to the end of your thumb, from the knuckle up. Three teaspoons equals 1 tablespoon. Palm = 3 oz. of meat Choose lean poultry, fish, shellfish and beef. One palm size portion equals 3 oz. for an adult and 1 -2 oz. for a child under 5. 1 tennis ball or a fist= 1/2 cup of fruit and vegetables Healthy diets include a variety of colorful fruits and vegetables every day. The secret to serving size is in your hand. Snacking can add up. Remember, 1 handful equals 1 oz. of nuts and small candies. For chips and pretzels, 2 handfuls equals 1 oz. Because hand sizes vary, compare your fist size to an actual measuring cup. Assessment & Plan (05/21/2022 11:39 AM CDT): Healthy, low carbohydrate lifestyle and exercise for 150min/week recommended Assessment & Plan (05/01/2022 8:40 AM CDT): HPI: Condition is not at/near goal goal BMI <30 A&P: Healthy, high-protein, lower carbohydrate, lower fat lifestyle and exercise for 150min/week recommended Recommend tracking everything you put in your mouth on an ana maría like [employer] Lower carb substitutions: [employer] carries a zero net carb bread If you are looking for whole potatoes, like to use in soup or new potato shape/flavor, radishes are a great replacement If you are looking for mashed potatoes, riced cauliflower in the frozen bag section are a great replacement For pasta, try using zucchini noodles, lay them out on a cookie sheet and pat dry with a tea towel to try to remove as much moisture as possible. Heat your pasta sauce on the stove and put the noodles in for 30-45 seconds. If you leave them in much longer they will become mushy Jacob and/or coconut flour instead of regular flour For pizza dough, try fathead pizza dough recipe online. To get a crispy crust, bake on one side for 8-12 min, then flip over and bake on the other side for 8-12 min, then put toppings on and bake until the cheese on top of pizza melts chaffles recipe online For ice cream, try the brand Enlightened To replace coffee creamer and make it low carb, use heavy creamer with sugar free Torani sweetener For chips, try Whisps or pork rinds For yogurt, try Two Good nepali yogurt Use Chance for recipe ideas. Type in low carb... Hand Measurements: A fist or cupped hand = 1 cup 1 cup = 1 -2 servings of fruit juice 1 oz. of cold cereal 2 oz. of cooked cereal, rice or pasta 8 oz. of milk or yogurt A thumb = 1 oz. of cheese Consuming low-fat cheese helps you meet the required servings from the milk, yogurt and cheese group. 1 oz. of low-fat cheese counts as 8 oz. of milk or yogurt. Handful = 1-2 oz. of snack food Thumb tip = 1 teaspoon Keep high-fat foods, such as peanut butter and mayonnaise, at a minimum. One teaspoon is equal to the end of your thumb, from the knuckle up. Three teaspoons equals 1 tablespoon. Palm = 3 oz. of meat Choose lean poultry, fish, shellfish and beef. One palm size portion equals 3 oz. for an adult and 1 -2 oz. for a child under 5. 1 tennis ball or a fist= 1/2 cup of fruit and vegetables Healthy diets include a variety of colorful fruits and vegetables every day. The secret to serving size is in your hand. Snacking can add up. Remember, 1 handful equals 1 oz. of nuts and small candies. For chips and pretzels, 2 handfuls equals 1 oz. Because hand sizes vary, compare your fist size to an actual measuring cup. Assessment & Plan (01/22/2022 3:55 PM CDT): HPI: Condition is not at/near goal goal BMI <30 A&P: Healthy, high-protein, lower carbohydrate, lower fat lifestyle and exercise for 150min/week recommended Changed eating habits. Encouraged to eat low gluten, low dairy Substitutions: Recommend tracking everything you put in your mouth on an ana maría like [employer] or [employer] carries a zero net carb bread If you are looking for whole potatoes, like to use in soup or new potato shape/flavor, radishes are a great replacement If you are looking for mashed potatoes, riced cauliflower in the frozen bag section are a great replacement For pasta, try using zucchini noodles, lay them out on a cookie sheet and pat dry with a tea towel to try to remove as much moisture as possible. Heat your pasta sauce on the stove and put the noodles in for 30-45 seconds. If you leave them in much longer they will become mushy Jacob and/or coconut flour instead of regular flour For pizza dough, try fathead pizza dough recipe online. To get a crispy crust, bake on one side for 8-12 min, then flip over and bake on the other side for 8-12 min, then put toppings on and bake until the cheese on top of pizza melts chaffles recipe online For ice cream, try the brand Enlightened To replace coffee creamer and make it low carb, use heavy creamer with sugar free Torani sweetener For chips, try Whisps or pork rinds For yogurt, try Two Good nepali yogurt Use Chance for recipe ideas. Type in low carb... Assessment & Plan (10/05/2021 3:30 PM DRY CELL ASSEMBLY SUPERVISOR): HPI: Condition is not at/near goal goal BMI <30 A&P: Healthy, high-protein, lower carbohydrate, lower fat lifestyle and exercise for 150min/week recommended Substitutions: Recommend tracking everything you put in your mouth on an ana maría like [employer] or [employer] carries a zero net carb bread If you are looking for whole potatoes, like to use in soup or new potato shape/flavor, radishes are a great replacement If you are looking for mashed potatoes, riced cauliflower in the frozen bag section are a great replacement For pasta, try using zucchini noodles, lay them out on a cookie sheet and pat dry with a tea towel to try to remove as much moisture as possible. Heat your pasta sauce on the stove and put the noodles in for 30-45 seconds. If you leave them in much longer they will become mushy Jacob and/or coconut flour instead of regular flour For pizza dough, try fathead pizza dough recipe online. To get a crispy crust, bake on one side for 8-12 min, then flip over and bake on the other side for 8-12 min, then put toppings on and bake until the cheese on top of pizza melts chaffles recipe online For ice cream, try the brand Enlightened To replace coffee creamer and make it low carb, use heavy creamer with sugar free Torani sweetener For chips, try Whisps or pork rinds For yogurt, try Two Good nepali yogurt Use Pinterest for recipe ideas. Type in low carb... Assessment & Plan (04/19/2021 8:18 AM CDT): HPI: Condition is not at/near goal goal BMI <30 A&P: Healthy, high-protein, lower carbohydrate, lower fat lifestyle and exercise for 150min/week recommended Substitutions: Recommend tracking everything you put in your mouth on an ana maría like [employer] or [employer] carries a zero net carb bread If you are looking for whole potatoes, like to use in soup or new potato shape/flavor, radishes are a great replacement If you are looking for mashed potatoes, riced cauliflower in the frozen bag section are a great replacement For pasta, try using zucchini noodles, lay them out on a cookie sheet and pat dry with a tea towel to try to remove as much moisture as possible. Heat your pasta sauce on the stove and put the noodles in for 30-45 seconds. If you leave them in much longer they will become mushy Jacob and/or coconut flour instead of regular flour For pizza dough, try fathead pizza dough recipe online. To get a crispy crust, bake on one side for 8-12 min, then flip over and bake on the other side for 8-12 min, then put toppings on and bake until the cheese on top of pizza melts chaffles recipe online For ice cream, try the brand Enlightened To replace coffee creamer and make it low carb, use heavy creamer with sugar free Torani sweetener For chips, try Whisps or pork rinds For yogurt, try Two Good nepali yogurt Use Pinterest for recipe ideas. Type in low carb... Assessment & Plan (12/28/2020 8:50 AM DRY CELL ASSEMBLY SUPERVISOR): Healthy, low carbohydrate lifestyle and exercise for 150min/week recommended Avoid all bread, potatoes, cereal, pasta, rice, margarine, milk, yogurt, ice cream, juices, soda (including diet), beer, and manmade or manufactured desserts. Please enjoy steak, fish, chicken, pork, butter, vegetables, nuts, whole eggs, cheese and cream in your coffee. The overall goal is to minimize net carbohydrates. Also, exercise for 150min/week recommended Substitutions: Aldi carries a zero net carb bread If you are looking for whole potatoes, like to use in soup or new potato shape/flavor, radishes are a great replacement If you are looking for mashed potatoes, riced cauliflower in the frozen bag section are a great replacement For pasta, try using zucchini noodles Jacob and/or coconut flour instead of regular flour For pizza dough, try fathead pizza dough recipe online chaffles recipe online For ice cream, try the brand Enlightened Use Pinterest for recipe ideas. Type in low carb... Assessment & Plan (08/25/2020 11:21 AM [employer]): HPI: Condition is stable A&P: Healthy, low carbohydrate lifestyle and exercise for 150min/week recommended Substitutions: Susani carries a zero net carb bread If you are looking for whole potatoes, like to use in soup or new potato shape/flavor, radishes are a great replacement If you are looking for mashed potatoes, riced cauliflower in the frozen bag section are a great replacement For pasta, try using zucchini noodles, lay them out on a cookie sheet and pat dry with a tea towel to try to remove as much moisture as possible. Heat your pasta sauce on the stove and put the noodles in for 30-45 seconds. If you leave them in much longer they will become mushy Jacob and/or coconut flour instead of regular flour For pizza dough, try fathead pizza dough recipe online. To get a crispy crust, bake on one side for 8-12 min, then flip over and bake on the other side for 8-12 min, then put toppings on and bake until the cheese on top of pizza melts chaffles recipe online For ice cream, try the brand Enlightened Use Pinterest for recipe ideas. Type in low carb... Current Treatment and Therapy Plans No current plan information found. Past Treatment and Therapy Plans No past plan information found. Lifetime Dose Tracking * Chemical Lifetime Dose Automatic Entry Manual Entr y DLP 2,732 mGycm 2,732 mGycm 0 mGycm Resolved Problems Problem Noted Date Diagnosed Date Resolved Date Irregular bowel habits 03/22/202210/05 Assessment & Plan (08/01/2022 7:01 AM CDT): HPI: Condition is stable Continue on current meds famotidine 40 mg twice daily as needed, probiotics 50 billion daily, encouraged healthy diet and exercise Avoid trigger foods including: carbonated beverages, caffeine, spicy, fried foods, tomatoes, cucumbers, mint, and acidic fruits/juices like orange/lemon/grapefruit. Avoid eating/drinking anything for at least 2 hours before bed. Sleep with bed propped. Patient had EGD on 03/27/[address] Diaz. Positive for H pylori. Patient treated with amoxicillin 500 mg 2 tabs twice daily for 14 days. Clarithromycin 500 mg twice daily for 14 days. Omeprazole 20 mg twice daily for 14 days. At 6 week follow-up patient to start famotidine and Tums. Stool study ordered but not completed. Neck pain 09/29/2020 09/29/2020
--- OUTSIDE RECORDS SUMMARY | 2025-02-24 08:55 | XMS_ITS | Clinical Summary ---
Author Organization [facility] Address [address] [place] [address] Care Team Providers Care Welding Machine Operator Helper Gas Name Role Phone Colby Diaz MD Unavailable [phone] Teresa Degroot NP Unavailable Suzanne Dudley WAFER FAB TECHNICIAN Unavailable Deandra Sorto MD Unavailable [phone] Nemesio Christianson MD Primary Care Provider Allergies Active Allergy Reactions Criticality Noted Date Comments Latex Hives,Itching Medium 09/18/2023 Rizatriptan Fever Medium 12/11/2023 Medications multivitamin with minerals tablet Take 1 tablet by mouth daily Active Lactobac no.51-Bifidoba ct no.4 (up4 Probiotics Ultra) 50 billion cell capsule Take 1 Caplet by mouth Active valACYclovir (VALTREX) 1 gram tablet Take 2 tabs (2000 mg) 2 times a days for 1 day. 4 tablet 5 2 Active cetirizine (ZyrTEC) 10 mg tablet Take 1 tablet (10 mg total) by mouth daily 90 tablet 3 3 Active fluticasone propionate (FLONASE) 50 mcg/actuation nasal spray Administer 2 sprays into each nostril daily 16 g 3 3 Active atorvastatin (LIPITOR) 40 mg tabletIndicati ons:Dyslipidem ia Take 1 tablet (40 mg total) by mouth daily 90 tablet 3 4 08/17/20 25 Active famotidine (PEPCID) 40 mg tabletIndicati ons:Dyspepsia Take 1 tablet (40 mg total) by mouth 2 (two) times a day for 14 days, THEN 1 tablet (40 mg total) nightly. 120 tablet 4 Active cholecalcifero l (VITAMIN D-3) 24862 unit capsuleIndicat ions:Vitamin D deficiency TAKE 1 CAPSULE BY MOUTH DAILY 90 capsule 1 5 Active metFORMIN (GLUCOPHAGE) 500 mg tablet Take 1 tablet (500 mg total) by mouth daily 5 Active phentermine (ADIPEX-P) 37.5 mg tablet Take 1 tablet (37.5 mg total) by mouth daily 5 Active hydrOXYzine (ATARAX) 25 mg tablet 1/2 to 1 tablet at bedtime as needed for anxiety/ sleep 30 tablet 3 2 01/29/20 25 Discontinu ed(Therapy completed) drospirenone, contraceptive, (Slynd) tablet tablet Take 1 each (4 mg total) by mouth daily 112 tablet 3 01/29/20 Discontinu ed(Therapy completed) topiramate (TOPAMAX) 50 mg tabletIndicati ons:Migraine Prevention Take 1 tablet (50 mg total) by mouth 2 (two) times a day 180 tablet 3 4 01/29/20 Discontinu ed(Therapy completed) escitalopram (Lexapro) 10 mg tabletIndicati ons:LAURA (generalized anxiety disorder),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 2 tablet 4 01/29/20 25 Discontinu ed(Therapy completed) Active Problems Problem Noted Date Diagnosed Date [...] 11/22/2023 Assessment & Plan (11/22/2023 12:36 PM COMMERCIAL ESCROW OFFICER): This is possibly a trigger point and [...] today Assessment & Plan (11/22/2023 12:36 PM COMMERCIAL ESCROW OFFICER): The cervix is healing well The friable part was treated with silver nitrate Will see if this happens again Assessment & Plan (10/03/2023 3:17 PM COMMERCIAL ESCROW OFFICER): Results reviewed She voices understanding Will plan to repeat pap q 4 months for the first year Then q 6m for the year after that. Assessment & Plan (09/16/2023 2:16 PM COMMERCIAL ESCROW OFFICER): Will proceed as planned. Assessment & Plan (07/20/2023 11:59 AM CDT): Results reviewed To [facility] Procedure reviewed along with risk, benefits and [...] --> [place] [address] [place] units daily on prior visit which is what she is doing now - recheck lab, order placed Lab Results Component Value Date 25HYDROVITD 17 (L) 12/11/2023 25HYDROVITD 19 (L) 04/10/2023 25HYDROVITD 25 (L) 08/01/2022 25HYDROVITD 33 04/19/2021 25HYDROVITD 18 (L) 08/25/2020 Assessment & Plan (12/12/2023 5:05 AM COMMERCIAL ESCROW OFFICER): - chronic, not well controlled - worse [...] pill. Assessment & Plan (11/09/2022 12:11 PM COMMERCIAL ESCROW OFFICER): Discussed irregular cycles and PCOS in depth. [...] 08/01/2022 Assessment & Plan (12/12/2023 5:07 AM COMMERCIAL ESCROW OFFICER): - chronic condition, not at goal, worse [...] scheduled Assessment & Plan (10/05/2022 11:45 AM COMMERCIAL ESCROW OFFICER): - chronic condition, not at goal - [...] management Assessment & Plan (10/05/2022 11:34 AM COMMERCIAL ESCROW OFFICER): - chronic,controlled - currently on Hydroxyzine 25 mg 1/2 tablet at night as needed only - continue management Atypical chest pain 10/05/2022 Assessment & Plan (09/11/2024 8:14 AM COMMERCIAL ESCROW OFFICER): - atypical chest pain, recurring condition, recently [...] may be related to anxiety - at [facility] since she has been without her Famotidine, [...] valve. Assessment & Plan (09/09/2023 10:37 AM COMMERCIAL ESCROW OFFICER): - atypical chest pain, less frequent - [...] valve. Assessment & Plan (10/05/2022 1:47 PM COMMERCIAL ESCROW OFFICER): - atypical chest pain - chronic in [...] 12/11/2023 Assessment & Plan (12/11/2023 8:57 AM COMMERCIAL ESCROW OFFICER): - chronic condition, better controlled - mixed symptoms of anxiety and depression - states it is getting better - currently on Lexapro 10 mg daily - continue current management with changes made above Lab Results Component Value Date TSH 2.43 04/10/2023 Assessment & Plan (09/09/2023 8:57 AM COMMERCIAL ESCROW OFFICER): - chronic condition, not well controlled with [...] 04/10/2023 Assessment & Plan (10/05/2022 11:34 AM COMMERCIAL ESCROW OFFICER): - chronic condition, controlled with persistent symptoms [...] 07/09/2022 Assessment & Plan (09/11/2024 7:57 AM COMMERCIAL ESCROW OFFICER): - chronic condition, controlled/stable - mixed symptoms [...] 12/11/2023 Assessment & Plan (12/11/2023 9:00 AM COMMERCIAL ESCROW OFFICER): - chronic condition, better controlled - mixed symptoms of anxiety and depression - states it is getting better - currently on Lexapro 10 mg daily - continue current management Lab Results Component Value Date TSH 2.43 04/10/2023 Assessment & Plan (09/09/2023 8:57 AM COMMERCIAL ESCROW OFFICER): - chronic condition, not well controlled with [...] 04/10/2023 Assessment & Plan (10/05/2022 11:33 AM COMMERCIAL ESCROW OFFICER): - chronic condition, controlled with persistent symptoms [...] 05/23/2022 Assessment & Plan (10/05/2022 11:35 AM COMMERCIAL ESCROW OFFICER): - chronic, stable - follows with GI [...] 03/22/2022 Assessment & Plan (09/11/2024 8:15 AM COMMERCIAL ESCROW OFFICER): - chronic condition with recurrence of symptoms [...] summer Then restart on meds mid to late May until Thanks Come off of meds if possible during [...] summer Then restart on meds mid to late May until Thanks Come off of meds if possible during [...] management Assessment & Plan (12/11/2023 9:00 AM COMMERCIAL ESCROW OFFICER): - chronic, not well controlled - without [...] management Assessment & Plan (09/09/2023 8:59 AM COMMERCIAL ESCROW OFFICER): - chronic, not well controlled - without [...] above Assessment & Plan (10/05/2022 11:38 AM COMMERCIAL ESCROW OFFICER): - chronic, under control - very infrequent [...] or bologna; no MSG as found in latvian food; no more than 1/2 banana a [...] visit Assessment & Plan (08/25/2020 11:19 AM COMMERCIAL ESCROW OFFICER): HPI: Condition is worsening A&P: Discussed/ordered labs, [...] hot dogs, no MSG as found in latvian food, no more than 1/2 banana a day, no artificial sweeteners, fresh bread (less than 24 hours old); drink lots of water. Morbid obesity with BMI of 40.0-44.9, adult 11/02/2020 Assessment & Plan (08/17/2024 11:56 AM CDT): [...] loss Assessment & Plan (12/11/2023 8:55 AM COMMERCIAL ESCROW OFFICER): Wt Readings from Last 3 Encounters: 12/11/23 [...] increase to twice daily as recommended by NET UI DEVELOPER. Advised patient it may take longer to notice weight loss with this medication and this medication can be increased if needed. Assessment & Plan (10/05/2022 11:39 AM COMMERCIAL ESCROW OFFICER): Wt Readings from Last 3 Encounters: 10/05/22 [...] your mouth on an ana maría like [employer] Lower carb substitutions: Aldi carries a zero [...] in much longer they will become mushy Furlong and/or coconut flour instead of regular flour [...] pork rinds For yogurt, try Two Good bahamian yogurt Use Pinterest for recipe ideas. Type [...] your mouth on an ana maría like [employer] Lower carb substitutions: Aldi carries a zero [...] in much longer they will become mushy Furlong and/or coconut flour instead of regular flour [...] pork rinds For yogurt, try Two Good bahamian yogurt Use Pinterlise for recipe ideas. Type in low carb... [...] your mouth on an ana maría like [employer] Lower carb substitutions: Aldi carries a zero [...] in much longer they will become mushy Furlong and/or coconut flour instead of regular flour [...] pork rinds For yogurt, try Two Good bahamian yogurt Use Chance for recipe ideas. Type [...] your mouth on an ana maría like [employer] or [employer] Aldi carries a zero net carb bread [...] in much longer they will become mushy Furlong and/or coconut flour instead of regular flour [...] pork rinds For yogurt, try Two Good bahamian yogurt Use Pinterest for recipe ideas. Type in low carb... Assessment & Plan (10/05/2021 3:30 PM COMMERCIAL ESCROW OFFICER): HPI: Condition is not at/near goal goal BMI <30 A&P: Healthy, high-protein, lower carbohydrate, lower fat lifestyle and exercise for 150min/week recommended Substitutions: Recommend tracking everything you put in your mouth on an ana maría like [employer] or [employer] Aldi carries a zero net carb bread [...] in much longer they will become mushy Furlong and/or coconut flour instead of regular flour [...] pork rinds For yogurt, try Two Good bahamian yogurt Use Pinterest for recipe ideas. Type in low carb... Assessment & Plan (04/19/2021 8:18 AM CDT): HPI: Condition is not at/near goal goal BMI <30 A&P: Healthy, high-protein, lower carbohydrate, lower fat lifestyle and exercise for 150min/week recommended Substitutions: Recommend tracking everything you put in your mouth on an ana maría like [employer] or [employer] Aldi carries a zero net carb bread [...] in much longer they will become mushy Furlong and/or coconut flour instead of regular flour [...] pork rinds For yogurt, try Two Good bahamian yogurt Use Pinterest for recipe ideas. Type in low carb... Assessment & Plan (12/28/2020 8:50 AM COMMERCIAL ESCROW OFFICER): Healthy, low carbohydrate lifestyle and exercise for [...] replacement For pasta, try using zucchini noodles Furlong and/or coconut flour instead of regular flour For pizza dough, try fathead pizza dough recipe online chaffles recipe online For ice cream, try the brand Xylemearminda Use Gradible (formerly gradsavers) for recipe ideas. Type in low carb... Assessment & Plan (08/25/2020 11:21 AM COMMERCIAL ESCROW OFFICER): HPI: Condition is stable A&P: Healthy, low carbohydrate lifestyle and exercise for 150min/week recommended Substitutions: Aldi carries [...] in much longer they will become mushy Furlong and/or coconut flour instead of regular flour [...] for recipe ideas. Type in low carb... Resolved Problems Problem Noted Date Diagnosed Date [...] but not completed. Neck pain 09/29/2020 09/29/2020 Encounters Date Type Department Care Team Description 02/03/2025 Results Follow-Up [place] [facility] [address] [place] [phone] Deandra Sorto MD 01/28/2025 2:00 PM CDT Office Visit [facility] [address] [place] [address] [place] [phone] Deandra Sorto MD Well woman exam (Primary Dx); High grade squamous intraepithelial lesion (HGSIL), grade 3 JORDYN, on biopsy of cervix; Screening examination for STI; Dysfunctional uterine bleeding; Hx of migraines 12/28/2024 2:19 AM CDT - 12/28/2024 5:32 AM CDT Emergency [facility] Emergency Department [address] [place] [address] Donte Wilson MD Abdominal pain (Primary Dx) Discharge Disposition: Discharge to home or self care from Last 3 Months Immunizations Immunization Administration Dates Next Due DTaP 07/19/1999,11/30/1997 Influenza, Quadrivalent, Tracey l Culture-based MDCK, Preservative Free, Antibiotic Free, Intramuscular 08/26/2023 Influenza, Quadrivalent, Spl it, Preservative Free, Intramuscular 07/09/2022,08/25/2020 Influenza, Trivalent, IM (MDV) 10/05/2021,2015 Influenza, Trivalent, Preser vative Free, Intramuscular 06/28/2014 Influenza, Unspecified 08/19/2024,2020,08/25/2020,08/21,08/21/2019,07/26/2016 MMR 11/30/1997 Moderna Sars-cov-2 Bivalent Vaccine 50 Mcg/0.5 mL (12+ YRS)-Blue/Macrh 09/16/2022 OPV 11/30/1997,03/08/1997 PPD TEST 01/23/2023 Td, adsorbed 04/03/2001 Tdap 05/23/2023,07/26/2016 Varicella 07/19/1999 Surgical History Surgery Date Site/Laterality Comments AMPUTATION FINGER / THUMB COLONOSCOPY 03/27/2022 Medical History Medical History Date Comments Hypercholesteremia Migraine GERD (gastroesophageal reflux disease) Infection Heart murmur Jean palsy Depression Family History Medical History Relation Name Comments Diabetes Father Desmond Hypertension Father Desmond Kidney disease Father Desmond Pancreatitis Father Desmond No Known Problems Half-Brother 1 No Known Problems Half-Brother 2 No Known Problems Half-Sister 1 No Known Problems Half-Sister 2 No Known Problems Half-Sister 3 No Known Problems Half-Sister 4 Allergy (severe) Mother Fern Breast mass Mother Fern Clotting disorder Mother Fern Heart disease Mother Fern Hyperlipidemia Mother Fern Hypertension Mother Fern Kidney disease Mother Fern Cancer Paternal Grandmother Cynthia Other cancer Neg Hx no breast, supervisor case loading, or colon cancers sng 01/28/25 Relation Name Status Comments Father Desmond Alive Half-Brother 1 Half-Brother 2 Half-Sister 1 Alive Half-Sister 2 Alive Half-Sister 3 Alive Half-Sister 4 Alive Mother Fern Alive Paternal Grandmother Cynthia Social History Tobacco Use Types Packs/Day Years Used Date Smoking Tobacco: Never Smokeless Tobacco: Never Tobacco Cessation:Counseling Given: Not Answered Comments:No mj or street drugs Alcohol Use Standard Drinks/Week Comments Not Currently [...] on file Legal Sex Female 4:14 AM COMMERCIAL ESCROW OFFICER Gender Identity Female 01/26/2021 10:41 PM CDT Sexual Orientation Bisexual 01/26/2021 10 :41 PM CDT Obstetrics History Para Term AB IAB SAB Ectopic Multiple Livin g Live Births 1 1 1 1 1 Date Outcome GA Total Labor Labor/2nd/3rd Weight Sex Type Anes PTL Marcia A1 A5 Name Clin 6 Term 2.92 kg (6 lb 7 oz) F Vag-S pont Living Last Filed Vital Signs Vital Sign Reading Time Taken Comments Blood Pressure 122/80 01/28/2025 2:30 PM CDT Pulse 64 12/28/2024 4:26 AM CDT Temperature 36.2 C (97.2 F) 12/28/2024 2:16 AM CDT Respiratory Rate 18 12/28/2024 2:16 AM CDT Oxygen Saturation 100% 12/28/2024 4:26 AM CDT Inhaled Oxygen Concentration - - Weight 111.6 kg (246 lb) 01/28/2025 2:30 PM CDT Height 160 cm (5' 3 ) 12/28/2024 2:16 AM CDT Body Mass Index 43.58 12/28/2024 2:16 AM CDT Plan of Treatment Health Maintenance Due Date Last Done Comments Covid-19 Vaccine ( season) 2024 09/16/2022, 08/17/2022 Cervical Cancer Screening 01/28/20262024, 07/20/2024, 01/16/2024, Additional history exists Depression Screening 01/28/2026 01/28/2025, 09/11/2024, 08/17/2024, Additional history exists Regular Well Visit/Exam 18-64 01/28/2026 01/28/2025, 01/16/2024, 01/24/2023, Additional history exists DTaP/Tdap/Td Vaccine (5 - Td or Tdap) 05/23/2033 05/23/2023, 07/26/2016, 04/03/2001, Additional history exists Varicella Vaccines Discontinued 07/19/1999 Hepatitis B Screening Completed 08/13/2024 Hepatitis C Screening Completed 08/13/2024 , 08/01/2022, 05/01/2022, Additional history exists Influenza Vaccine Completed 08/19/2024, , 07/09/2022, Additional history exists HPV Vaccines Discontinued Pneumococcal vaccine <65 Aged Out No longer eligible based on patient's age to complete this topic Procedures Procedure Name Priority Date/Time Associated Diagnosis Comments PAP, REFLEX HPV Routine 01/28/2025 3:25 PM CDT High grade squamous intraepithelial lesion (HGSIL), grade 3 JORDYN, on biopsy of cervix N. GONORRHOEAE/C. TRACHOMATIS AMPLIFICATION Routine 01/28/2025 3:25 PM CDT URINALYSIS AND REFLEX TO MICROSCOPIC AND CULTURE STAT 12/28/2024 4:[address] KUB STONE WO CONTRAST ED 12/28/2024 3:49 AM CDT EGFR STAT 12/28/2024 2:45 AM CDT DIFFERENTIAL AUTO STAT 12/28/2024 2:4 5 AM CDT COMPREHENSIVE METABOLIC PANEL STAT 12/28/2024 2:45 AM CDT CBC WITH AUTO DIFFERENTIAL STAT 12/28/2024 2:45 AM CDT HEPATITIS C ANTIBODY Routine 08/13/2024 10:20 AM CDT Need for hepatitis C screening test from Last 3 Months or Most Recently Relevant to Health Maintenance Results * Pap, reflex HPV (01/28/2025 3:25 PM CDT) CLINICAL INFORMATION: Dyllan Lama Comment:WELL WOMEN LMP Dyllan Lama Comment:01/10/2025 Previous Pap Dyllan Lama Comment:NONE GIVEN Prev. Bx Dyllan Lama Comment:NONE GIVEN SOURCE: Dyllan Lama Comment:Cervix, Endocervix Pap, specimen adequacy Dyllan Lama Comment: Satisfactory for evaluation. Endocervical/transformation zone component absent. HPV interp Dyllan Lama Comment: Cytology Results: Negative for intraepithelial lesion or malignancy. COMMENTS Dyllan Lama Comment: This Pap test has been evaluated with computer assisted technology. Boiler Cleaner Martin Quinn Comment: MERVIN MINER(ASCP) CT Screening Location: [place] [address] [address] [place] [address] Review gas engine mechanic Dyllan Lama Comment: MATT CT(ASCP) CT Screening location: [place] [address] [address] [place] [address] Comment Dyllan Lama Comment: EXPLANATORY NOTE: The Pap is a screening test for cervical cancer. It is not a diagnostic test and is subject to false negative and false positive results. It is most reliable when a satisfactory sample, regularly obtained, is submitted with relevant clinical findings and history, and when the Pap result is evaluated along with historic and current clinical information. Thin prep 01/28/2025 3:25 PM CDT 01/29/2025 9:31 PM CDT Deandra Sorto MD LAB CYTOLOGY ORDERA BLES Final Result Performing Organization Address City/[facility]/ZIP Co de Phone Number [facility] [address] [place] [address] * N. gonorrhoeae/C. trachomatis Amplification (01/28/2025 3:25 PM CDT) C. trachomatis RNA NOT DETECTED NOT DETECTED [facility] N. gonorrhoeae RNA NOT DETECTED NOT DETECTED [facility] Comment [employer] [place] Comment: The analytical performance characteristics of this assay, when used to test SurePath(TM) specimens have been determined by [employer]. The modifications have not been cleared or approved by the FDA. This assay has been validated pursuant to the CLIA regulations and is used for clinical purposes. For additional information, please refer to https://education.Imagga/faq/TZI376 (This link is being provided for information/ educational purposes only.) 01/28/2025 3:25 PM CDT 01/29/2025 9:31 PM CDT Deandra Sorto MD LAB MICROBIOLOGY - GENERAL ORDERABLES Final Result Performing Organization Address City/[facility]/ZIP Co de Phone Number [facility] [address] [place] [address] * (ABNORMAL) Urinalysis reflex to microscopic and culture Urine (12/28/2024 4:25 AM CDT) Color, ur Straw Yellow Clarity, ur Turbid(A) Clear [facility] (JACK) Specific gravity, ur 1.021 1.003 - 1.030 [facility] (JACK) pH, urine 6.0 [facility] (JACK) Comment: Interpretive Data U rine pH is affected by diet, medications, systemic acid-base disturbances, and renal tubular function. pH may affect urinary stone formation. For example, urine pH below 6.0 may help reduce the tendency for calcium phosphate stones and pH greater than 6.0 may reduce the tendency for uric acid stone formation. Source: [facility] Current Interpretive Data was last revised on 2017 Protein, ur ql Negative Negative [facility] (JACK) Glucose, ur ql Negative Negative [facility] ([facility]ACK) Ketones, ur Negative Negative [facility] (JACK) Bilirubin, ur Negative Negative [facility] (JACK) Blood, ur Negative Negative [facility] (JACK) Urobilinogen, ur <2.0 <2.0 mg/dL [facility] (JACK) Nitrite, ur Negative Negative [facility] (JACK) Leukocyte esterase, ur Negative Negative [facility] (JACK) UA reflex comment Reflex conditions for microscopic UA and culture not met. [facility] (JACK) Urine 12/28/2024 4:25 AM CDT 12/28/2024 4:29 AM CDT Donte Wilson MD LAB MICROBIOLOGY - GENERAL ORD ERABLES Final Result [facility] (JACK) [address] [facility] Department [place] [address] * CT KUB Stone WO Contrast (12/28/2024 3:49 AM CDT) Anatomical Region Laterality Modality Abdomen N/A Computed Tomogra phy 12/28/2024 3:56 AM CDT Narrative 12/28/2024 4:12 AM CDT EXAM DESCRIPTION: CT KUB STONE WO CONTRAST REASON FOR STUDY: Urolithiasis, symptomatic Left flank pain TECHNIQUE: CT scan of the abdomen and pelvis performed without intravenous and without oral contrast using helical scanning technique. Reconstructed coronal and sagittal MPR images reviewed. All images stored on PACS. Automated exposure control was used as a dose optimization technique for this examination. COMPARISON: 09/23/2020 FINDINGS: LOWER CHEST: Lung bases clear. Heart size normal. No effusion. LIVER/BILIARY: Liver unremarkable. Biliary tree normal in caliber. GALLBLADDER: Contracted. SPLEEN: Normal. PANCREAS: Normal. ADRENAL GLANDS: Normal. KIDNEYS/URINARY TRACT: Unremarkable. GI: Stomach and small bowel appear normal. Noninflamed colonic diverticula. Normal appendix. OTHER ABDOMINAL/PELVIS: Major vascular structures are normal in caliber. No enlarged lymph node or free fluid. MSK: Normal. BODY WALL: Unremarkable. IMPRESSION: No urolithiasis or urinary tract abnormality identified. THIS IS AN ELECTRONICALLY VERIFIED FINAL REPORT 12/28/2024 4:12 AM - Electronically signed by Solomon Conn M.D. AR: ELIE Report ID: [id number] Reading Location: [place] [address] Procedure Note Solomon Conn MD - 12/28/2024 EXAM DESCRIPTION: CT KUB STONE WO CONTRAST REASON FOR STUDY: Urolithiasis, symptomatic Left flank pain TECHNIQUE: CT scan of the abdomen and pelvis performed without intravenousand without oral contrast using helical scanning technique. Reconstructed coronal and sagittal MPR images reviewed. All images stored on PACS.Automated exposure control was used as a dose optimization technique for this examination. COMPARISON: 09/23/2020 FINDINGS: LOWER CHEST: Lung bases clear. Heart size normal. No effusion. LIVER/BILIARY: Liver unremarkable. Biliary tree normal in caliber. GALLBLADDER: Contracted. SPLEEN: Normal. PANCREAS: Normal. ADRENAL GLANDS: Normal. KIDNEYS/URINARY TRACT: Unremarkable. GI: Stomach and small bowel appear normal. Noninflamed colonicdiverticula. Normal appendix. OTHER ABDOMINAL/PELVIS: Major vascular structures are normal in caliber.No enlarged lymph node or free fluid. MSK: Normal. BODY WALL: Unremarkable. IMPRESSION: No urolithiasis or urinary tract abnormality identified. THIS IS AN ELECTRONICALLY VERIFIED FINAL REPORT 12/28/2024 4:12 AM - Electronically signed by Solomon Conn M.D. AR: ELIE Report ID: [id number] Reading Location: [id number] Donte Wilson MD IMG CT PROCEDURES Final Result * eGFR (12/28/2024 2:45 AM CDT) eGFR >90 >=60 mL/min/1. 73 m2 Comment: Interpretive Data Reference Interval Normal >/= 90 mL/min/1.73m2 Mildly decreased* 60 - 89 mL/min/1.73m2 Mildly to moderately decreased 45 - 59 mL/min/1.73m2 Moderately to severely decreased 30 - 44 mL/min/1.73m2 Severely decreased 15 - 29 mL/min/1.73m2 Kidney Failure < 15 mL/min/1.73m2 *Relative to young adult level Estimated glomerular filtration rate is determined by the 2020 CKD-EPI equation recommended by the National [employer] (A Unifying Approach to GFR Estimation: Recommendations of the NKF-ASK Task Force on Reassessing the Inclusion of Race in Diagnosing Kidney Disease, JASN 2020). The CKD-EPI equation should not be used for patients with unstable renal function and has not been validated in children and those over 70. Current interpretive data was last reviewed 2021. Blood 12/28/2024 2:45 AM CDT 12/28/2024 2:48 AM CDT Donte Wilson MD LAB BLOOD ORDERABLES Final Res ult [facility] 1 [facility] [place] [address] * (ABNORMAL) Differential, auto (12/28/2024 2:45 AM CDT) Neutrophil abs 8.1(H) 1.5 - 6.5 K/cumm Imm gran abs 0.0 0.0 - 0.1 K/cumm [facility] ([place]) Lymphocyte abs 4.6(H) 0.8 - 3.3 K/cumm [facility] ([place]) Monocyte abs 1.1(H) 0.2 - 0.8 K/cumm [facility] ([place]) Eosinophil abs 0.2 0.0 - 0.5 K/cumm [facility] ([place]) Basophil abs 0.1 0.0 - 0.1 K/cumm [facility] ([place]) Neutrophil pct 57.5 % [facility] ([place]) Comment: Interpretive Data Percent cell count reference ranges are not reported, since discordance with absolute values may lead to misinterpretation of CBC data. Current Interpretive Data was last revised on 2018. Imm gran pct 0.3 % [facility] ([place]) Comment: Interpretive Data Percent cell count reference ranges are not reported, since discordance with absolute values may lead to misinterpretation of CBC data. Current Interpretive Data was last revised on 2018. Lymphocyte pct 33.0 % [facility] ([place]) Comment: Interpretive Data Percent cell count reference ranges are not reported, since discordance with absolute values may lead to misinterpretation of CBC data. Current Interpretive Data was last revised on 2018. Monocyte pct 7.7 % [facility] ([place]) Comment: Interpretive Data Percent cell count reference ranges are not reported, since discordance with absolute values may lead to misinterpretation of CBC data. Current Interpretive Data was last revised on 2018. Eosinophil pct 1.1 % [facility] ([place]) Comment: Interpretive Data Percent cell count reference ranges are not reported, since discordance with absolute values may lead to misinterpretation of CBC data. Current Interpretive Data was last revised on 2018. Basophil pct 0.4 % [facility] ([place]) Comment: Interpretive Data Percent cell count reference ranges are not reported, since discordance with absolute values may lead to misinterpretation of CBC data. Current Interpretive Data was last revised on 2018. Blood 12/28/2024 2:45 AM CDT 12/28/2024 2:48 AM CDT us Donte Wilson MD LAB BLOOD ORDERABLES Final Res ult [facility] ([place]) 1 [facility] Department [place] [address] * (ABNORMAL) CBC with auto differential (12/28/2024 2:45 AM CDT) WBC 14.0(H) 3.8 - 9.9 K/cumm Hgb 12.1 11.9 - 15.5 g/dL [facility] ([place]) Hct 38.0 35.6 - 45.5 % [facility] ([place]) Plt 356 150 - 400 K/cumm [facility] ([place]) MPV 10.0 9.1 - 12.3 fL [facility] ([place]) RBC 4.30 3.90 - 5.20 M/cumm [facility] ([place]) MCV 88.4 81.3 - 96.4 fL [facility] ([place]) MCH 28.1 27.1 - 33.3 pg [facility] ([place]) MCHC 31.8(L) 32.3 - 35.7 g/dL [facility] ([place]) RDW CV 13.4 11.1 - 14.9 % [facility] ([place]) RDW SD 43.0 35.7 - 48.1 fL [facility] ([place]) NRBC abs 0.00 0.00 - 0.01 K/cumm [facility] ([place]) Blood 12/28/2024 2:45 AM CDT 12/28/2024 2:48 AM CDT us Donte Wilson MD LAB BLOOD ORDERABLES Final Res ult [facility] 1 [facility] [place] [address] * Comprehensive metabolic panel (12/28/2024 2:45 AM CDT) Sodium 137 135 - 145 mmol/L Potassium, pl 4.3 3.3 - 4.9 mmol/L [facility] ([place]) Chloride 103 97 - 110 mmol/L [facility] ([place]) CO2 24 22 - 32 mmol/L [facility] ([place]) Anion gap 10 2 - 15 mmol/L [facility] ([place]) BUN 12 6 - 25 mg/dL [facility] ([place]) Creatinine 0.81 0.60 - 1.10 mg/dL [facility] ([place]) Glucose 99 70 - 199 mg/dL [facility] ([place]) Comment: Interpretive Data Fasting glucose >/= 126 mg/dl is diagnostic for diabetes. Fasting is defined as no caloric intake for at least 8 hours. Fasting glucose between 100 mg/dl to 125 mg/dl is diagnostic of prediabetes. In a patient with classic symptoms of hyperglycemia or hyperglycemic crisis, a random glucose >/= 200 mg/dl is diagnostic for diabetes. In the absence of unequivocal hyperglycemia, results should be confirmed by repeat testing. The classification and Diagnosis of Diabetes Diabetes Care 2021; 46: S19-S40. Current interpretive data was last revised 2022. Calcium 9.0 8.5 - 10.3 mg/dL [facility] ([place]) Bilirubin, total 0.2 0.1 - 1.2 mg/dL [facility] ([place]) Protein, pl 7.1 6.5 - 8.5 g/dL [facility] ([place]) Albumin 3.9 3.5 - 5.0 g/dL [facility] ([place]) Alk phos 107 40 - 130 Units/L [facility] ([place]) ALT 12 7 - 45 Units/L [facility] ([place]) AST 18 10 - 45 Units/L [facility] ([place]) Comment: Hemolysis present. Results may be affected. Slightly Hemolyzed Specimen Blood 12/28/2024 2:45 AM CDT 12/28/2024 2:48 AM CDT Donte Wilson MD LAB BLOOD ORDERABLES Final Res ult [facility] ([place] 1 [facility] Department [place] [address] * Hepatitis C antibody Blood (08/13/2024 10:20 AM CDT) Hep C Ab Nonreactive Nonreactive Comment: Interpretive Data Nonreactive: Antibodies to HCV not detected. Does NOT exclude the possibility of recent exposure to HCV. Equivocal: Equivocal for HCV antibodies. Supplemental molecular testing will be automatically performed to determine infection status in accordance with current CDC screening recommendations. Reactive: Positive for HCV antibodies. This may represent current or past HCV infection. Supplemental molecular testing will be automatically performed to determine current infection status in accordance with current CDC screening recommendations. Interpretive data was last revised on 2020. Testing performed by: [facility], [address] [place] [address]., [id number] Blood 08/13/2024 10:2 0 AM CDT 08/13/2024 3:53 PM CDT Michael Thakkar MD LAB MICROBIOLOGY - [facility] ORDERABLES Final Result [facility] ([place]) 1 [facility] Department [place] [address] from Last 3 Months or Most Recently Relevant to Health Maintenance Insurance [facility] [id number] OPEN ACCESS Advance Directives For more information, please contact: [phone] * Full Code (Latest Code Status on File) Date Activated Date Inactivated Comments 03/27/2022 11:36 AM 03/27/2022 6:30 PM Care Teams Welding Machine Operator Helper Gas Relationship Specialty Start Date End Date Nemesio Christianson MD [address] [place] [address] PCP - General Internal Medicine 12/28/24 Colby Diaz MD Consulting Physician Gastroenterology 10/05/22 Teresa Degroot NP [address] [place] [address] [place] [address] Nurse Practitioner Obstetrics and Gynecology 04/16/23 Suzanne Dudley NP [address] [place] [address] DR MARTINEZ [address] [place], [place] [address] [address] Nurse Practitioner Family Medicine 04/16/23 Deandra Sorto MD [address] [place] [address] [place] [address] Consulting Physician Obstetrics and Gynecology 09/18/23
--- OUTSIDE RECORDS SUMMARY | 2025-02-24 08:55 | XMS_ITS | Clinical Summary ---
Author Organization [facility] Address [address] [place] [id number] Care Team Providers Care Window And Door Installer Name Role Phone Michael Thakkar MD Primary Care Provider Allergies No known active allergies Medications butalbital-acetamin ophen-caffeine (FIORICET) 50-300-40 MG capsule Take 1 capsule by mouth every 4 (four) hours as needed for Pain. 20 capsule 3 Active ondansetron (ZOFRAN-ODT) 4 MG disintegrating tablet Take 1 tablet (4 mg total) by mouth every 8 (eight) hours as needed for Nausea. 20 tablet 3 Active Social History Tobacco Use Types Packs/Day Years Used Date Smoking Tobacco: Never Smokeless Tobacco: Never Tobacco Cessation:Counseling Given: Not Answered Alcohol Use Standard Drinks/Week Comments Yes 0 (1 standard drink = 0.6 oz pur e alcohol) socially Comments No Sex and Gender Information Value Date Recorded Sex Assigned at Not on file Legal Sex Female 12:12 PM CDT Gender Identity Not on file Sexual Orientation Not on file Last Filed Vital Signs Vital Sign Reading Time Taken Comments Blood Pressure 134/86 08/21/2023 12:18 PM CDT Pulse 56 08/21/2023 12:18 PM CDT Temperature 36.7 C (98 F) 08/21/2023 12:18 PM CDT Respiratory Rate 18 08/21/2023 12:18 PM CDT Oxygen Saturation 99% 08/21/2023 12:18 PM CDT Inhaled Oxygen Concentration - - Weight 113.4 kg (250 lb) 08/21/2023 12:18 PM CDT Height 157.5 cm (5' 2 ) 08/21/2023 12:18 PM CDT Body Mass Index 45.73 08/21/2023 12:18 PM CDT Plan of Treatment Health Maintenance Due Date Last Done Comments Cervical Cancer Screening Pap Smear (Age 21 to 29) Every 3 Years 1996 Cervical Cancer Screening 1996 Annual Physical 1999 Hepatitis C 2014 Hepatitis B Vaccines (1 of 3 - 19+ 3-dose series) 2015 COVID-19 Vaccine (2 - season) 2024 08/17/2022 DTaP, Tdap and Td Vaccines (5 - Td or Tdap) 05/23/2033 05/23/2023, 07/26/2016, 04/03/2001, Additional history exists HPV Vaccines Aged Out No longer eligi ble based on patient's age to complete this topic Meningococcal B Vaccine Aged Out No l onger eligible based on patient's age to complete this topic Meningococcal Vaccine Aged Out No ivan noy eligible based on patient's age to complete this topic Pneumococcal Vaccine: Pediatrics (0 to 5 Years) and At-Risk Patients (6 to 49 Years) Aged Out No longer eligible based on patient's age to complete this topic RSV Immunizations Under 20 Months Aged Out No longer eligible based on patient's age to complete this topic Insurance DAWN Care Teams Window And Door Installer Relationship Specialty Start Date End Date Michael Thakkar MD PCP - General FAMILY PRACTICE 08/21/23
--- OUTSIDE RECORDS SUMMARY | 2025-02-24 08:55 | XMS_ITS | Encounter Summary ---
Author Organization [facility] Address [address] [place] [address] Care Team Providers Care Extractor Machine Operator Name Role Phone Iftikhar Yolanda STATON Primary Care Provider Colby Diaz MD Unavailable [phone] Michael Thakkar MD Primary Care Provider Teresa Degroot NP Unavailable [phone] Suzanne Dudley VENTILATION MECHANIC Unavailable [phone] Deandra Sorto MD Unavailable [phone] Nemesio Christianson MD Primary Care Provider [phone] Encounter Details Date Type Department Care Team (Late st Contact Info) Description 02/06/2021 Telephone [facility] [address] [place] [address] Don John, Social History Tobacco Use Types Packs/Day Years Used Date Smoking Tobacco: Never Smokeless Tobacco: Never Alcohol Use Standard Drinks/Week Comments Not Currently 0 (1 standard drink = 0.6 oz pur e alcohol) PHQ-2 Answer Date Recorded PHQ-2 Total Score (If total score is 3 or more points, staff should administer the PHQ-9) 0 12/30/2020 Comments No Sex and Gender Information Value Date Recorded Sex Assigned at Not on file Legal Sex Female 4:14 AM PAYROLL CONSULTANT Gender Identity Female 01/26/2021 10:41 PM CDT Sexual Orientation Bisexual 01/26/2021 10 :41 PM CDT documented as of this encounter Plan of Treatment Not on file documented as of this encounter Visit Diagnoses Not on filedocumented in this encounter Additional Health Concerns Infection Onset Date Last Indicated Resolved Time COVID: Suspected 10/10/2022 10/10/2022 10/10/2022 1:19 AM PAYROLL CONSULTANT Influenza, adult 10/10/2022 10/10/2022 10/17/2022 3:05 AM PAYROLL CONSULTANT COVID: Suspected 11/29/2022 11/29/2022 11/29/2022 11:21 AM PAYROLL CONSULTANT documented as of this encounter Care Teams Extractor Machine Operator Relationship Specialty Start Date End Date Yolanda Buitrago NP PCP - General Family Medicine 08/25/20 10/04/22 Michael Thakkar MD PCP - General Family Medicine 10/05/22 12/13/24 Nemesio Christianson MD [facility] [place] [address] PCP - General Internal Medicine 12/28/24 Colby Diaz MD Consulting Physician Gastroenterology 10/05/22 Teresa Degroot VENTILATION MECHANIC [address] [place] [address] [place] [address] Nurse Practitioner Obstetrics and Gynecology 04/16/23 Suzanne Dudley NP [address] [place] [address] [place] [address] Nurse Practitioner Family Medicine 04/16/23 Deandra Sorto MD [address] [place] [address] [place] [address] Consulting Physician Obstetrics and Gynecology 09/18/23 documented as of this encounter
--- OUTSIDE RECORDS SUMMARY | 2025-02-24 08:55 | XMS_ITS | Data Portability ---
Author Organization [facility] Address [address] [place] [address] Care Team Providers Care Market Asset Protection Manager Name Role Phone SONNY CHRISTIANSON Primary Care Provider KADEN BAILEY [employer] [phone] Assessment Encounter Date Assessment Date Assessment LastModified by Organization Details LastModified Time 12/31/2024 12/31/2024 x-ray knee is negative we will do physical therapy. CBC CMP lipid A1c T3-T4 TSH cortisol level B12 folic acid vitamin-D snap study for sleep apnea follow up 4-month-old records. She has established with orthopaedic general follows with them consider GLP 1 [email or web address] Not available 01/03/2025 11:55:21 Plan of Treatment Reminders Order Date Submit Date Provider Last Modified By Organization Details Last Modified Time Details Appointments ANY 15 2024 11:30A M Sonny Christianson MD Not available Not available Not available ANY 15 2024 10:30A M Sonny Christianson MD Not available Not available Not available Lab TSH + free T4, serum 2024 025 [facility], [address], [place], [address], 01/03/2025 09:07:11 T3, free, serum or plasma 2024 025 [facility], [address], [place], [address], 01/03/2025 09:07:18 CBC w/ auto diff 2024 025 [facility], [address], [place], [address], 01/03/2025 09:07:17 CMP, serum or plasma 2024 025 [facility], [address], [place], [address], 01/03/2025 09:07:13 cobalamin and folate panel, serum 2024 025 [facility], [address], [place], [address], 01/03/2025 09:07:14 vitamin D, 25-hydrox y, total, serum 2024 025 [facility], [address], [place], [address], 01/03/2025 09:07:19 cortisol, serum or plasma 2024 025 [facility], [address], [place], [address], 01/03/2025 09:07:16 lipid panel, serum 2024 025 [facility], [address], [place], [address], 01/03/2025 09:07:12 HbA1c (hemoglob in A1c), blood 2024 025 [facility], [address], [place], [address], 01/03/2025 09:07:15 Referral physical therapist referral [address] [facility], [address] [facility], [place], [address], 01/19/2025 11:21:53 Procedures home sleep testing (PROC) 2024 025 [email or web address], [address], [address], [place], [address], 02/02/2025 09:21:43 Surgeries None recorded. Imaging None recorded. Medication Orders None recorded. Patient TargetsNo targets recorded. Patient Instructions Encounter Date Encounter Id Patient Instructions Last Modified By Organization Details Last Modified Time 12/31/2024 [id number] A healthy lifestyle: care instructions [email or web address] Not available 12/31/2024 13:27:16 Reason for Referral Physical Therapist Referral for Pain of right knee joint Referring Physician: Sonny Christianson, Internal Medicine, Encounter Date: 12/31/2024 Results Created Date Observation Date Name Description Value Unit Range Abnormal Flag Note LastModifiedBy Organization Detail LastModifiedTime 01/02/2001/03/2025 TSH+F REE T4 TSH 2.380 uIU/m L 0.450- 4.500 Not Available [facility] ([facility]) [address] [place], [address], 01/03/2025 09:07:11 01/02/2001/03/2025 TSH+F REE T4 T4,free(dire ct) 0.94 NG/dL 0.82-1 .77 Not Available [facility] ([facility]) [address] [place], [address], 01/03/2025 09:07:11 01/02/2001/03/2025 LIPID PANEL cholesterol, total 168 mg/dL 100-19 9 Not Available [facility] ([facility]) [address] [place], [address], 01/03/2025 09:07:12 01/02/2001/03/2025 LIPID PANEL triglyceride s 74 mg/dL 0-149 Not Available [facility] ([facility]) [address] [place], [address], 01/03/2025 09:07:12 01/02/2001/03/2025 LIPID PANEL HDL cholesterol 40 mg/dL >39 Not Available [facility] ([facility]) [address] [facility] [place], [address], 01/03/2025 09:07:12 01/02/20 25 01/03/2025 LIPID PANEL VLDL cholesterol srinivas 14 mg/dL 5-40 Not Available [facility] ([facility]) [address] [facility] [place], [address], 01/03/2025 09:07:12 01/02/2001/03/2025 LIPID PANEL LDL chol calc ([facility]) 114 mg/dL 0-99 above high normal Not Available [facility] ([facility]) [address] [facility] [place], [address], 01/03/2025 09:07:12 01/02/2001/03/2025 COMP. METAB OLIC PANEL (14) glucose 93 mg/dL 70-99 Not Available [facility] ([facility]) [address] [facility] [place], [address], 01/03/2025 09:07:13 01/02/2001/03/2025 COMP. METAB OLIC PANEL (14) BUN 9 mg/dL 6-20 Not Available [facility] ([facility]) [address] [facility] [place], [address], 01/03/2025 09:07:13 01/02/2001/03/2025 COMP. METAB OLIC PANEL (14) creatinine 0.92 mg/dL 0.57-1 .00 Not Available [facility] ([facility]) [address] [facility] [place], [address], 01/03/2025 09:07:13 01/02/2001/03/2025 COMP. METAB OLIC PANEL (14) eGFR 87 mL/mi n/1.7 3 >59 Not Available [facility] ([facility]) [address] [facility] [place], [address], 01/03/2025 09:07:13 01/02/20 25 01/03/2025 COMP. METAB OLIC PANEL (14) BUN/creatini ne ratio 10 9-23 Not Available [facility] ([facility]) [address] [facility], [place], [address], 01/03/2025 09:07:13 01/02/20 25 01/03/2025 COMP. METAB OLIC PANEL (14) sodium 138 mmol/ L 134-14 4 Not Available [facility] ([facility]) [address] [facility], [place], [address], 01/03/2025 09:07:13 01/02/20 25 01/03/2025 COMP. METAB OLIC PANEL (14) potassium 4.4 mmol/ L 3.5-5. 2 Not Available [facility] ([facility]) [address] [facility], [place], [address], 01/03/2025 09:07:13 01/02/20 25 01/03/2025 COMP. METAB OLIC PANEL (14) chloride 100 mmol/ L 96-106 Not Available [facility] ([facility]) [address] [facility], [place], [address], 01/03/2025 09:07:13 01/02/20 25 01/03/2025 COMP. METAB OLIC PANEL (14) carbon dioxide, total 24 mmol/ L 20-29 Not Available [facility] ([facility]) [address] [place], [address], 01/03/2025 09:07:13 01/02/20 25 01/03/2025 COMP. METAB OLIC PANEL (14) calcium 9.2 mg/dL 8.7-10 .2 Not Available [facility] ([facility]) [address] [place], [address], 01/03/2025 09:07:13 01/02/20 25 01/03/2025 COMP. METAB OLIC PANEL (14) protein, total 6.8 g/dL 6.0-8. 5 Not Available [facility] ([facility]) [address] [facility] [place], [address], 01/03/2025 09:07:13 01/02/20 25 01/03/2025 COMP. METAB OLIC PANEL (14) albumin 3.8 g/dL 4.0-5. 0 below low normal Not Available [facility] ([facility]) [address] [place], [address], 01/03/2025 09:07:13 01/02/20 25 01/03/2025 COMP. METAB OLIC PANEL (14) globulin, total 3.0 g/dL 1.5-4. 5 Not Available [facility] ([facility]) [address] [place], [address], 01/03/2025 09:07:13 01/02/20 25 01/03/2025 COMP. METAB OLIC PANEL (14) bilirubin, total 0.4 mg/dL 0.0-1. 2 Not Available [facility] ([facility]) [address] [place], [address], 01/03/2025 09:07:13 01/02/20 25 01/03/2025 COMP. METAB OLIC PANEL (14) alkaline phosphatase 109 IU/L 44-121 Not Available [facility] ([facility]) [address] [place], [address], 01/03/2025 09:07:13 01/02/20 25 01/03/2025 COMP. METAB OLIC PANEL (14) AST (SGOT) 15 IU/L 0-40 Not Available [facility] ([facility]) [address] [place], [address], 01/03/2025 09:07:13 01/02/20 25 01/03/2025 COMP. METAB OLIC PANEL (14) ALT (SGPT) 12 IU/L 0-32 Not Available [facility] ([facility]) [address] [facility], [place], [address], 01/03/2025 09:07:13 01/02/2001/03/2025 VITAM IN B12 AND FOLAT E vitamin B12 349 pg/mL 232-12 45 Not Available [facility] ([facility]) [address] [facility], [place], [address], 01/03/2025 09:07:14 01/02/2001/03/2025 VITAM IN B12 AND FOLAT E folate (folic acid), serum 10.3 NG/mL >3.0 A serum folat e keyla ntrat ion of less than 3.1 ng/mL is consi dered to repre sent clini srinivas defic iency . Not Available [facility] ([facility]) [address] [facility], [place], [address], 01/03/2025 09:07:14 01/02/2001/02/2025 HEMOG LOBIN A1C hemoglobin A1C 5.7 % 4.8-5. 6 above high normal Predi abete s: 5.7 - 6.4 Diabe gina: >6.4 Glyce roosevelt contr ol for adult s with diabe gina: <7.0 Not Available [facility] ([facility]) [address] [facility], [place], [address], 01/03/2025 09:07:15 01/02/2001/03/2025 CORTI SHAY cortisol 14.2 ug/dL 6.2-19 .4 Pleelotn toro Note: The refer ence inter marta and beka ing for this test is for an AM colle ction . If this is a PM colle ction pleas e use: Corti shay PM: 2.3-1 1.9 Not Available [facility] ([facility]) [address] [facility], [place], [address], 01/03/2025 09:07:16 01/02/2001/02/2025 CBC WITH DIFFE RENTI AL/PL ATELE T WBC 12.1 x10e3 /uL 3.4-10 .8 above high normal Not Available [facility] ([facility]) [address] [facility], [place], [address], 01/03/2025 09:07:17 01/02/20 25 01/02/2025 CBC WITH DIFFE RENTI AL/PL ATELE T RBC 4.43 x10e6 /uL 3.77-5 .28 Not Available [facility] ([facility]) [address] [facility], [place], [address], 01/03/2025 09:07:17 01/02/2001/02/2025 CBC WITH DIFFE RENTI AL/PL ATELE T hemoglobin 12.4 g/dL 11.1-1 5.9 Not Available [facility] ([facility]) [address] [place], [address], 01/03/2025 09:07:17 01/02/2001/02/2025 CBC WITH DIFFE RENTI AL/PL ATELE T hematocrit 40.1 % 34.0-4 6.6 Not Available [facility] ([facility]) [address] [place], [address], 01/03/2025 09:07:17 01/02/2001/02/2025 CBC WITH DIFFE RENTI AL/PL ATELE T MCV 91 fL 79-97 Not Available [facility] ([facility]) [address] [place], [address], 01/03/2025 09:07:17 01/02/2001/02/2025 CBC WITH DIFFE RENTI AL/PL ATELE T MCH 28.0 pg 26.6-3 3.0 Not Available [facility] ([facility]) [address] [place], [address], 01/03/2025 09:07:17 01/02/20 25 01/02/2025 CBC WITH DIFFE RENTI AL/PL ATELE T MCHC 30.9 g/dL 31.5-3 5.7 below low normal Not Available [facility] ([facility]) [address] [facility], [place], [address], 01/03/2025 09:07:17 01/02/20 25 01/02/2025 CBC WITH DIFFE RENTI AL/PL ATELE T RDW 12.5 % 11.7-1 5.4 Not Available [facility] ([facility]) [address] [facility], [place], [address], 01/03/2025 09:07:17 01/02/2001/02/2025 CBC WITH DIFFE RENTI AL/PL ATELE T platelets 367 x10e3 /uL 150-45 0 Not Available [facility] ([facility]) [address] [facility], [place], [address], 01/03/2025 09:07:17 01/02/2001/02/2025 CBC WITH DIFFE RENTI AL/PL ATELE T neutrophils 64 % notest ab. Not Available [facility] ([facility]) [address] [facility], [place], [address], 01/03/2025 09:07:17 01/02/2001/02/2025 CBC WITH DIFFE RENTI AL/PL ATELE T lymphs 30 % notest ab. Not Available [facility] ([facility]) [address] [facility], [place], [address], 01/03/2025 09:07:17 01/02/20 25 01/02/2025 CBC WITH DIFFE RENTI AL/PL ATELE T monocytes 5 % notest ab. Not Available [facility] ([facility]) [address] [facility], [place], [address], 01/03/2025 09:07:17 01/02/20 25 01/02/2025 CBC WITH DIFFE RENTI AL/PL ATELE T eos 1 % notest ab. Not Available [facility] ([facility]) [address] [facility], [place], [address], 01/03/2025 09:07:17 01/02/20 25 01/02/2025 CBC WITH DIFFE RENTI AL/PL ATELE T basos 0 % notest ab. Not Available [facility] ([facility]) [address] [facility], [place], [address], 01/03/2025 09:07:17 01/02/2001/02/2025 CBC WITH DIFFE RENTI AL/PL ATELE T neutrophils (absolute) 7.8 x10e3 /uL 1.4-7. 0 above high normal Not Available [facility] ([facility]) [address] [facility], [place], [address], 01/03/2025 09:07:17 01/02/2001/02/2025 CBC WITH DIFFE RENTI AL/PL ATELE T lymphs (absolute) 3.6 x10e3 /uL 0.7-3. 1 above high normal Not Available [facility] ([facility]) [address] [place], [address], 01/03/2025 09:07:17 01/02/2001/02/2025 CBC WITH DIFFE RENTI AL/PL ATELE T monocytes(ab solute) 0.6 x10e3 /uL 0.1-0. 9 Not Available [facility] ([facility]) [address] [place], [address], 01/03/2025 09:07:17 01/02/2001/02/2025 CBC WITH DIFFE RENTI AL/PL ATELE T eos (absolute) 0.1 x10e3 /uL 0.0-0. 4 Not Available [facility] ([facility]) [address] [place], [address], 01/03/2025 09:07:17 01/02/2001/02/2025 CBC WITH DIFFE RENTI AL/PL ATELE T baso (absolute) 0.0 x10e3 /uL 0.0-0. 2 Not Available [facility] ([facility]) [address] [facility], [place], [address], 01/03/2025 09:07:17 01/02/2001/02/2025 CBC WITH DIFFE RENTI AL/PL ATELE T immature granulocytes 0 % notest ab. Not Available [facility] ([facility]) [address] [facility], [place], [address], 01/03/2025 09:07:17 01/02/2001/02/2025 CBC WITH DIFFE RENTI AL/PL ATELE T immature grans (abs) 0.0 x10e3 /uL 0.0-0. 1 Not Available [facility] ([facility]) [address] [facility], [place], [address], 01/03/2025 09:07:17 01/02/2001/03/2025 TRIIO DOTHY JANA E (T3), FREE triiodothyro nine (T3), free 3.0 pg/mL 2.0-4. 4 Not Available [facility] ([facility]) [address] [facility], [place], [address], 01/03/2025 09:07:18 01/02/2001/03/2025 VITAM IN D, 25-HY DROXY vitamin D, 25-hydroxy 38.9 NG/mL 30.0-1 00.0 Vitam in D defic iency has been defin ed by the Insti tute of Medic ine and an Endoc rine Socie ty pract ice guide line as a level of serum 25-OH vitam in D less than 20 ng/mL (1,2) . The Endoc rine Socie ty went on to [facility] er defin e vitam in D insuf ficie ncy as a level betwe en 21 and 29 ng/mL (2). 1. IOM (Inst itute of Medic ine). 2010. Dieta ry refer ence intak es for calci um and D. Marisabel martin [place]: The [facility] Press . 2. Sherrell marion [place], Kourtney lacey [place], Hafsa off-F errar i PINTO, et al. Evalu ation , treat ment, and preve ntion of vitam in D defic iency : an Endoc rine Socie ty clini srinivas pract ice guide line. JCEM. 2010; 96(7) :1911 -30. Not Available [facility] ([facility]) [address] [facility], [place], [address], 01/03/2025 09:07:19 12/20/19 25 12/19/2024 XR, knee, 3 view No observ ation record ed. [facility] [address], [place], [address], 01/06/2025 17:03:30 12/20/19 25 12/19/2024 XR, ankle , 3 or more view No observ ation record ed. [facility] [address], [place], [address], 01/06/2025 17:03:30 Result Notes None recorded. Problems Name Problem SNOMED Code Status Onset Date Resolution Date Notes Provider Name and Address Organization Details Recorded Time Fatigue 43289459 Active 2024 Gunjan Forbes MA [facility], [place] - [facility] 5 12:13:56 Migraine 33264253 Active 2024 Sonny Christianson MD Attn: Antoni michaels,[address] [facility], [place], [address], [place] - [facility] 5 11:52:11 Gastroesophage al reflux disease without esophagitis 656654443 Active 2024 Sonny Christianson MD Attn: Antoni michaels,[address] [facility], [place], [address], [facility] - [facility] 5 11:52:12 Diabetes mellitus screening Active 2024 Sonny Christianson MD Attn: Antoni michaels,[address] [facility], [place], [address], [place] - [facility] 5 11:52:16 Overweight 863625337 Active 2024 Sonny Christianson MD Attn: Antoni michaels,[address] [facility], [place], [address], [place] - [facility] 5 11:52:19 Vitamin D below reference range 332442165 Active 2024 Sonny Christianson MD Attn: Antoni michaels,[address] [facility], [place], [address], [place] - [facility] 5 11:52:35 Rhinitis 45694099 Active 2024 Sonny Christianson MD Attn: Antoni michaels,[address] [facility], [place], [address], [facility] - [facility] 5 11:52:51 Problem Notes None recorded. Procedures Surgical History None recorded. Imaging Results Imaging Date Name Status LastModified by Organiz [facility] Details LastModified Time 12/19/2024 XR, knee, 3 view completed [facility] [address] [place], [address], 01/06/2025 17:03:30 12/19/2024 XR, ankle, 3 or more view completed [facility] [address] [place], [address], 01/06/2025 17:03:30 Procedure Notes None recorded. Medical Equipment None Reported. Allergies Allergen ID Allergen Name Allergen Category Reaction Reaction Severity Criticality Documentation Date Start Date Code Code System Note Provider Name and Address Organization Details Recorded Time 527288 Latex (substanc e) environme nt,medica tion Not available Not available Not available 12/31/[address] [place], [place] - [facility] 11:19:46 371045 adhesive tape environme nt,medica tion rash Not available Not available 12/31/[address] Gar[place] null, [place] - [facility] 5 11:20:04 Medications Name Sig Start Date Stop Date Status Note LastModified by Organization Details LastModified Time Prescript ion - Prior Authoriza tion Request active Not Available Not Available Not Available atorvasta tin 40 mg tablet TAKE 1 TABLET BY MOUTH EVERY DAY active Not Available Not Available No t Available metformin 500 mg tablet TAKE 1 TABLET BY MOUTH EVERY DAY active Not Available Not Available No t Available cetirizin e 10 mg tablet Take 1 tablet every day by oral route. active Not Available Not Available No t Available fluconazo le 150 mg tablet TAKE 1 TABLET BY MOUTH AND REPEAT IN 3 DAYS active Not Available Not Available No t Available benzonata te 200 mg capsule TAKE 1 CAPSULE BY MOUTH EVERY 8 HOURS NEEDED FOR COUGH 12/31 completed Not Available Not Available Not Available famotidin e 40 mg tablet TAKE 1 TABLET BY MOUTH EVERY DAY active Not Available Not Available No t Available triamcino lone acetonide 0.5 % topical ointment APPLY TOPICALL Y TO THE AFFECTED AREA TWICE DAILY active Not Available Not Available No t Available phentermi ne 37.5 mg tablet TAKE 1 TABLET BY MOUTH EVERY DAY active Not Available Not Available No t Available phentermi ne 30 mg capsule active Not Available Not Available Not Available methylpre dnisolone 4 mg tablets in a dose pack TAKE BY MOUTH DIRECTED ON PACKAGE 12/31 completed Not Available Not Available Not Available albuterol sulfate HFA 90 mcg/actua tion aerosol inhaler INHALE 1 TO 2 PUFFS EVERY 4 TO 6 HOURS NEEDED FOR SHORTNES S OF BREATH AND WHEEZING active Not Available Not Available No t Available amoxicill in 875 mg-potass ium clavulana te 125 mg tablet TAKE 1 TABLET BY MOUTH TWICE DAILY FOR 7 DAYS 12/31 completed Not Available Not Available Not Available cholecalc iferol (vitamin D3) 250 mcg (10,000 unit) capsule Take 1 capsule every day by oral route. 2024 active Not Available Not Available Not Avai lable Zepbound 2.5 mg/0.5 mL subcutane ous pen injector active Paper PA form for zepbound Not Available Not Available Not Available Vitals Date Recorded Body height Body mass index (BMI) Body weight Heart rate Oxygen saturation Oxygen saturation in Arterial blood by Pulse oximetry Systolic blood pressure Diastolic blood pressure Provider Name and Address Organization Details Last Updated DateTime 160.02 cm 43.4 kg/m2 063478. 13 g 71 /min 99 % 99 % 124 mm[Hg] 78 mm[Hg] Enma Garza MA [place] - [facility] 11:19:20 Social History Question Answer Notes LastModified by Organizat ion Details LastModified Time Tobacco Smoking Status Never Smoker Enma GarzaLANE null, [facility] 12/31/2024 11:21:46 What Is Your Level Of Alcohol Consumption? None Information not available 12/31/2024 Are You Blind Or Do You Have Difficulty Seeing? No Information not available 12/31/2024 What Is Your Level Of Caffeine Consumption? Occasional Information not available 12/31/2024 In The 14 Days Before Symptom Onset, Have You Had Close Contact With A Laboratory-confir med COVID-19 While That Case Was Ill? No Information not available 12/31/2024 Have You Been To An Area Known To Be High Risk For COVID-19? No Information not available 12/31/2024 Are You Currently Employed? Yes Information not available 12/31/2024 Are You Deaf Or Do You Have Serious Difficulty Hearing? No Information not available 12/31/2024 What Is Your Occupation? [employer] Information not available 12/31/2024 Are There Any Guns Present In Your Home? No Information not available 12/31/2024 What Was The Date Of Your Most Recent Tobacco Screening? 12/31/2024 Information not available 12/31/2024 Do You Use Your Seat Belt Or Car Seat Routinely? Yes Information not available 12/31/2024 Do You Have Smoke And Carbon Monoxide Detectors In Your Home? Yes Information not available 12/31/2024 Do You Use Any Illicit Or Recreational Drugs? No Information not available 12/31/2024 Do You Use Sunscreen Routinely? No Information not available 12/31/2024 Has Tobacco Cessation Counseling Been Provided? No Information not available 12/31/2024 Do You Or Have You Ever Used Any Other Forms Of Tobacco Or Nicotine? No Information not available 12/31/2024 Sex: Unknown Functional Status Question Answer Note LastModified by Organization D etails LastModified Time Are you able to care for yourself? Yes Information n ot available 12/31/2024 Mental Status None recorded. Family History Nothing Reported. Medical History No medical history recorded. Gynecological HistoryNo gynecological history recorded. Obstetrics History GPAL:G 0 P 0 0 0 0 Past Encounters Encounter ID Performer Location Encounter Start Date Encounter Closed Date Diagnosis/Indication Diagnosis SNOMED-CT Code Diagnosis ICD10 Code Diagnosis Note [id number] Sonny Christianson MD [facility] [address] [place] [address] 12/31/2024 11:11:47 12/31/2024 12:17:46 Body mass index 40+ - severely obese 984018722 Z68.41 Overweight 136859374 E66 .3 Fatigue 72451445 R53.83 Screening for cardiovascular system disease 920194286 Z13.6 Diabetes m ellitus screening 422831969 Z13.1 Pain of ri ght knee joint 7245236590 31256 M25.561 Sleep disorder 90677213 G47.9 Gastroesop hageal reflux disease without esophagitis 361942071 K21.9 Migraine 95023735 G43.90 9 Vitamin D below reference range 887421324 E55.9 Rhinitis 80282137 J00 Adult heal th examination [id number] Z00.00 Health Concerns Section Related Observation LastModified by Organization Detai ls LastModified Time None Recorded Concern Status LastModified by Organization Details LastModified Time None Recorded Advance Directives Directive None Recorded Payers Encounter Date Sequence Insurance Name Policy Number Policy Gutierrez Covered Member ID Gutierrez Member ID Guarantor Name 12/31/2024 1 [employer] - ALLIED BENEFITS - OPEN ACCESS [id number] Ceci White [id number] Ceci White Notes Date Note Type Note Provider Name and Address Organization Details Recorded Time 12/31/2024 text/html 29-year-old new patient with a history of low vitamin-D chronic rhinitis PCOS migraines hyperlipidemia GERD who has recently been evaluated for possible kidney stone in the hospital emergency room with no evidence of stone seen she had a little bit of pain in her left upper quadrant that did go around to her back that is what prompted the look for a kidney stone and that pain is getting a little bit better. Her medications include atorvastatin Zyrtec vitamin-D famotidine allergies latex hives adhesive tape causes rash surgeries colposcopy they are monitoring she was HPV positive family history mother had kidney transplant etiology of her kidney disease not clear father diabetic hypertension pancreatitis Sonny Christianson MD Attn: Accounting[address] [place], [address], [facility] 01/03/2025 11:56:05 OBGyn Episode No OBEpisode recorded.
--- OUTSIDE RECORDS SUMMARY | 2025-02-24 08:55 | XMS_ITS | Referral Summary ---
Author Organization [facility] Address [address] [place] [address] Care Team Providers Care Thermostat Mechanic Name Role Phone Colby Diaz MD Unavailable [phone] Teresa Degorot NP Unavailable Suzanne Dudley PATENT DRAFTER Unavailable [phone] Deandra Sorto MD Unavailable [phone] Nemesio Christianson MD Primary Care Provider Encounters Date Type Department Care Team Description 02/03/2025 Results Follow-Up Jackrosas Higuera [address] [place] [address] [address] [place] [phone] Deandra Sorto MD 01/28/2025 2:00 PM CDT Office Visit Marionrosas Higuera [address] [place] [address] [address] [phone] Deandra Sorto MD Well woman exam (Primary Dx); High grade squamous intraepithelial lesion (HGSIL), grade 3 JORDYN, on biopsy of cervix; Screening examination for STI; Dysfunctional uterine bleeding; Hx of migraines 12/28/2024 2:19 AM CDT - 12/28/2024 5:32 AM CDT Emergency [facility] Emergency Department [address] [place] [address] Donte Wilson MD Abdominal pain (Primary Dx) Discharge Disposition: Discharge to home or self care from Last 3 Months Allergies Active Allergy Reactions Criticality Noted Date [...] tablet 4 Active cholecalcifero l (VITAMIN D-3) 13205 unit capsuleIndicat ions:Vitamin D deficiency TAKE 1 [...] by mouth daily 112 tablet 3 01/29/20 25 Discontinu ed(Therapy completed) topiramate (TOPAMAX) 50 mg tabletIndicati ons:Migraine Prevention Take 1 tablet (50 mg total) by mouth 2 (two) times a day 180 tablet 3 4 01/29/20 25 Discontinu ed(Therapy completed) escitalopram (Lexapro) 10 mg tabletIndicati ons:LAURA (generalized anxiety disorder),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) Take 1 tablet (10 mg total) by mouth daily 90 tablet 3 4 01/29/20 25 Discontinu ed(Therapy completed) triamcinolone (KENALOG) 0.5 % ointmentIndica tions:Skin rash Apply topically 2 (two) times a day 15 g 4 01/29/20 25 Discontinu ed(Therapy completed) phentermine 30 mg capsuleIndicat ions:Morbid obesity with BMI of 40.0-44.9, adult (HCC) Take 1 capsule (30 mg total) by mouth every morning 60 capsule 1 4 01/29/20 25 Discontinu ed(Therapy completed) fluconazole (DIFLUCAN) 150 [...] 11/22/2023 Assessment & Plan (11/22/2023 12:36 PM INSURANCE VERIFICATION REP): This is possibly a trigger point and [...] today Assessment & Plan (11/22/2023 12:36 PM INSURANCE VERIFICATION REP): The cervix is healing well The friable part was treated with silver nitrate Will see if this happens again Assessment & Plan (10/03/2023 3:17 PM INSURANCE VERIFICATION REP): Results reviewed She voices understanding Will plan to repeat pap q 4 months for the first year Then q 6m for the year after that. Assessment & Plan (09/16/2023 2:16 PM INSURANCE VERIFICATION REP): Will proceed as planned. Assessment & Plan (07/20/2023 11:59 AM CDT): Results reviewed To [facility] Procedure reviewed along with risk, benefits [...] --> [place] [address] [place] units daily on prior visit which is what she is doing now - recheck lab, order placed Lab Results Component Value Date 25HYDROVITD 17 (L) 12/11/2023 25HYDROVITD 19 (L) 04/10/2023 25HYDROVITD 25 (L) 08/01/2022 25HYDROVITD 33 04/19/2021 25HYDROVITD 18 (L) 08/25/2020 Assessment & Plan (12/12/2023 5:05 AM INSURANCE VERIFICATION REP): - chronic, not well controlled - worse [...] pill. Assessment & Plan (11/09/2022 12:11 PM INSURANCE VERIFICATION REP): Discussed irregular cycles and PCOS in depth. [...] 08/01/2022 Assessment & Plan (12/12/2023 5:07 AM INSURANCE VERIFICATION REP): - chronic condition, not at goal, worse [...] scheduled Assessment & Plan (10/05/2022 11:45 AM INSURANCE VERIFICATION REP): - chronic condition, not at goal - [...] management Assessment & Plan (10/05/2022 11:34 AM INSURANCE VERIFICATION REP): - chronic,controlled - currently on Hydroxyzine 25 mg 1/2 tablet at night as needed only - continue management Atypical chest pain 10/05/2022 Assessment & Plan (09/11/2024 8:14 AM INSURANCE VERIFICATION REP): - atypical chest pain, recurring condition, recently [...] valve. Assessment & Plan (09/09/2023 10:37 AM INSURANCE VERIFICATION REP): - atypical chest pain, less frequent - [...] valve. Assessment & Plan (10/05/2022 1:47 PM INSURANCE VERIFICATION REP): - atypical chest pain - chronic in [...] 12/11/2023 Assessment & Plan (12/11/2023 8:57 AM INSURANCE VERIFICATION REP): - chronic condition, better controlled - mixed symptoms of anxiety and depression - states it is getting better - currently on Lexapro 10 mg daily - continue current management with changes made above Lab Results Component Value Date TSH 2.43 04/10/2023 Assessment & Plan (09/09/2023 8:57 AM INSURANCE VERIFICATION REP): - chronic condition, not well controlled with [...] 04/10/2023 Assessment & Plan (10/05/2022 11:34 AM INSURANCE VERIFICATION REP): - chronic condition, controlled with persistent symptoms [...] 07/09/2022 Assessment & Plan (09/11/2024 7:57 AM INSURANCE VERIFICATION REP): - chronic condition, controlled/stable - mixed symptoms [...] 12/11/2023 Assessment & Plan (12/11/2023 9:00 AM INSURANCE VERIFICATION REP): - chronic condition, better controlled - mixed symptoms of anxiety and depression - states it is getting better - currently on Lexapro 10 mg daily - continue current management Lab Results Component Value Date TSH 2.43 04/10/2023 Assessment & Plan (09/09/2023 8:57 AM INSURANCE VERIFICATION REP): - chronic condition, not well controlled with [...] 04/10/2023 Assessment & Plan (10/05/2022 11:33 AM INSURANCE VERIFICATION REP): - chronic condition, controlled with persistent symptoms [...] 05/23/2022 Assessment & Plan (10/05/2022 11:35 AM INSURANCE VERIFICATION REP): - chronic, stable - follows with GI [...] 03/22/2022 Assessment & Plan (09/11/2024 8:15 AM INSURANCE VERIFICATION REP): - chronic condition with recurrence of symptoms [...] cancer screening purposes. 03/27/22- EGD with Dr. Karadaghy: Single gastric polyp was resected and retrieved. [...] during the summer Then restart on meds to may until Thanksgiving Come off of [...] management Assessment & Plan (12/11/2023 9:00 AM INSURANCE VERIFICATION REP): - chronic, not well controlled - without [...] management Assessment & Plan (09/09/2023 8:59 AM INSURANCE VERIFICATION REP): - chronic, not well controlled - without [...] above Assessment & Plan (10/05/2022 11:38 AM INSURANCE VERIFICATION REP): - chronic, under control - very infrequent [...] or bologna; no MSG as found in guatemalan food; no more than 1/2 banana a [...] visit Assessment & Plan (08/25/2020 11:19 AM INSURANCE VERIFICATION REP): HPI: Condition is worsening A&P: Discussed/ordered labs, [...] hot dogs, no MSG as found in guatemalan food, no more than 1/2 banana a [...] loss Assessment & Plan (12/11/2023 8:55 AM INSURANCE VERIFICATION REP): Wt Readings from Last 3 Encounters: 12/11/23 [...] - interested in weight loss medication - Wegovy/Ozempic, she will call and check with her [...] increase to twice daily as recommended by [employer] [facility]. Advised patient it may take longer to notice weight loss with this medication and this medication can be increased if needed. Assessment & Plan (10/05/2022 11:39 AM INSURANCE VERIFICATION REP): Wt Readings from Last 3 Encounters: 10/05/22 [...] your mouth on an ana maría like JavaJobs Lower carb substitutions: Kelechi carries a zero net carb bread If [...] in much longer they will become mushy Candor and/or coconut flour instead of regular flour [...] pork rinds For yogurt, try Two Good uruguayan yogurt Use Chance for recipe ideas. Type [...] your mouth on an ana maría like JavaJobs Lower carb substitutions: Aldi carries a zero [...] in much longer they will become mushy Candor and/or coconut flour instead of regular flour [...] pork rinds For yogurt, try Two Good uruguayan yogurt Use Chance for recipe ideas. Type [...] your mouth on an ana maría like JavaJobs Lower carb substitutions: Aldi carries a zero [...] in much longer they will become mushy Candor and/or coconut flour instead of regular flour [...] pork rinds For yogurt, try Two Good uruguayan yogurt Use Pinterest for recipe ideas. Type [...] your mouth on an ana maría like JavaJobs or Quotte Aldi carries a zero net carb bread [...] in much longer they will become mushy Candor and/or coconut flour instead of regular flour [...] pork rinds For yogurt, try Two Good uruguayan yogurt Use Chance for recipe ideas. Type in low carb... Assessment & Plan (10/05/2021 3:30 PM INSURANCE VERIFICATION REP): HPI: Condition is not at/near goal goal BMI <30 A&P: Healthy, high-protein, lower carbohydrate, lower fat lifestyle and exercise for 150min/week recommended Substitutions: Recommend tracking everything you put in your mouth on an ana maría like JavaJobs or Yellow Chipi carries a zero net carb bread If [...] in much longer they will become mushy Candor and/or coconut flour instead of regular flour [...] pork rinds For yogurt, try Two Good uruguayan yogurt Use Pinterest for recipe ideas. Type in low carb... Assessment & Plan (04/19/2021 8:18 AM CDT): HPI: Condition is not at/near goal goal BMI <30 A&P: Healthy, high-protein, lower carbohydrate, lower fat lifestyle and exercise for 150min/week recommended Substitutions: Recommend tracking everything you put in your mouth on an ana maría like JavaJobs or Quotte Aldi carries a zero net carb bread [...] in much longer they will become mushy Candor and/or coconut flour instead of regular flour [...] pork rinds For yogurt, try Two Good uruguayan yogurt Use Pinterest for recipe ideas. Type in low carb... Assessment & Plan (12/28/2020 8:50 AM INSURANCE VERIFICATION REP): Healthy, low carbohydrate lifestyle and exercise for [...] replacement For pasta, try using zucchini noodles Candor and/or coconut flour instead of regular flour For pizza dough, try fathead pizza dough recipe online chaffles recipe online For ice cream, try the brand Enlightened Use Pinterest for recipe ideas. Type in low carb... Assessment & Plan (08/25/2020 11:21 AM INSURANCE VERIFICATION REP): HPI: Condition is stable A&P: Healthy, low carbohydrate lifestyle and exercise for 150min/week recommended Substitutions: Kelechi carries a zero net carb bread If [...] in much longer they will become mushy Candor and/or coconut flour instead of regular flour [...] but not completed. Neck pain 09/29/2020 09/29/2020 Immunizations Immunization Administration Dates Next Due DTaP 07/19/1999,11/30/1997 Influenza, Quadrivalent, Tracey l Culture-based MDCK, Preservative Free, Antibiotic Free, Intramuscular 08/26/2023 Influenza, Quadrivalent, Spl it, Preservative Free, Intramuscular 07/09/2022,08/25/2020 Influenza, Trivalent, IM (MDV) 10/05/2021,2015 Influenza, Trivalent, Preser vative Free, Intramuscular 06/28/2014 Influenza, Unspecified 08/19/2024,2020,08/25/2020,08/21,08/21/2019,07/26/2016 MMR 11/30/1997 Moderna Sars-cov-2 Bivalent Vaccine 50 Mcg/0.5 mL (12+ YRS)-Blue/March 09/16/2022 OPV 11/30/1997,03/08/1997 PPD TEST 01/23/2023 Td, adsorbed 04/03/2001 Tdap 05/23/2023,07/26/2016 Varicella 07/19/1999 Social History Tobacco Use Types Packs/Day Years [...] on file Legal Sex Female 4:14 AM INSURANCE VERIFICATION REP Gender Identity Female 01/26/2021 10:41 PM CDT Sexual Orientation Bisexual 01/26/2021 10 :41 PM CDT Last Filed Vital Signs Vital Sign Reading [...] 12/28/2024 2:16 AM CDT Plan of Treatment Not on file Procedures Procedure Name Priority Date/Time Associated Diagnosis [...] has been evaluated with computer assisted technology. Supervisor Picking Crew Martin Quinn Comment: MERVIN MINER(ASCP) CT Screening Location: [place] [address] [address] [place] [address] Review care tech Dyllan Lama Comment: MERVIN GUTIERREZ(ASCP) CT Screening location: [place] [address] [address] [place] [id number] Comment Dyllan Lama Comment: EXPLANATORY NOTE: The [...] MD LAB CYTOLOGY ORDERA BLES Final Result [facility] [address] [place] [address] * N. gonorrhoeae/C. trachomatis Amplification (01/28/2025 3:25 PM CDT) C. trachomatis RNA NOT DETECTED NOT DETECTED [facility] N. gonorrhoeae RNA NOT DETECTED NOT DETECTED [facility] Comment [employer] [place] Comment: The analytical performance characteristics of this assay, when used to test SurePath(TM) specimens have been determined by [employer]. The modifications have not been cleared or approved by the FDA. This assay has been validated pursuant to the CLIA regulations and is used for clinical purposes. For additional information, please refer to https://education.Benefitter/faq/PBF088 (This link is being provided for information/ educational purposes only.) 01/28/2025 3:25 PM CDT 01/29/2025 9:31 PM CDT Deandra Sorto MD LAB MICROBIOLOGY - GENERAL ORDERABLES Final Result Performing Organization Address [facility]/ZIP Co de Phone Number [facility] [address] [place] [address] * (ABNORMAL) Urinalysis reflex to microscopic and [...] tendency for uric acid stone formation. Source: [facility] Current Interpretive Data was last revised on [...] - GENERAL ORD ERABLES Final Result [facility] ([facility]) 1 [facility] Department [place] [address] * CT KUB Stone WO Contrast (12/28/2024 [...] Solomon Conn M.D. AR: ELIE Report ID: [id number] Reading Location: [id number] Procedure Note Solomon Conn MD - 12/28/2024 [...] Solomon Conn M.D. AR: ELIE Report ID: [id number] Reading Location: [id number] Donte Wilson MD IMG CT PROCEDURES Final [...] LAB BLOOD ORDERABLES Final Res ult [facility] 1 [facility] Department [place] [address] * (ABNORMAL) Differential, auto (12/28/2024 [...] revised on 2018. Monocyte pct 7.7 % [facility] ([facility]) Comment: Interpretive Data Percent cell [...] revised on 2018. Basophil pct 0.4 % [facility] ([facility]) Comment: Interpretive Data Percent cell count reference ranges are not reported, since discordance with absolute values may lead to misinterpretation of CBC data. Current Interpretive Data was last revised on 2018. Blood 12/28/2024 2:45 AM CDT 12/28/2024 2:48 AM CDT us Donte Wilson MD LAB BLOOD ORDERABLES Final Res ult [facility] ([place]) 1 [facility] Department of Laboratories [place], [place] [id number] * (ABNORMAL) CBC with auto differential (12/28/2024 2:45 AM CDT) WBC 14.0(H) 3.8 - 9.9 K/cumm Hgb 12.1 11.9 - 15.5 g/dL [facility] ([place]) Hct 38.0 35.6 - 45.5 % [facility] Plt 356 150 - 400 K/cumm [facility] ([facility]) MPV 10.0 9.1 - 12.3 fL [facility] ([facility]) RBC 4.30 3.90 - 5.20 M/cumm [facility] ([facility]) MCV 88.4 81.3 - 96.4 fL [facility] ([facility] MCH 28.1 27.1 - 33.3 pg [facility] ([facility] MCHC 31.8(L) 32.3 - 35.7 g/dL [facility] ([place]) RDW CV 13.4 11.1 - 14.9 % [facility] ([facility] RDW SD 43.0 35.7 - 48.1 fL [facility] NRBC abs 0.00 0.00 - 0.01 K/cumm [facility] Blood 12/28/2024 2:45 AM CDT 12/28/2024 2:48 AM CDT us Donte Wilson MD LAB BLOOD ORDERABLES Final Res ult [facility] ([place]) 1 [facility] Department of Laboratories [place], [place] [id number] * Comprehensive metabolic panel (12/28/2024 2:45 AM CDT) Sodium 137 135 - 145 mmol/L Potassium, pl 4.3 3.3 - 4.9 mmol/L [facility] Chloride 103 97 - 110 mmol/L [facility] CO2 24 22 - 32 mmol/L [facility] Anion gap 10 2 - 15 mmol/L [facility] ([facility]) BUN 12 6 - 25 mg/dL [facility] Creatinine 0.81 0.60 - 1.10 mg/dL [facility] Glucose 99 70 - 199 mg/dL [facility] ([facility] Comment: Interpretive Data Fasting glucose [...] LAB BLOOD ORDERABLES Final Res ult [facility] ([place]) 1 [facility] Department [place] [address] * Hepatitis C antibody Blood (08/13/2024 10:20 [...] last revised on 2020. Testing performed by: [facility], [address] [place] [address], [place]., [address] Blood 08/13/2024 10:2 0 AM CDT 08/13/2024 3:53 PM CDT Michael Thakkar MD LAB MICROBIOLOGY - GENE RAL ORDERABLES Final Result [facility] ([place]) 1 [facility] Department [place] [address] from Last 3 Months or Most Recently Relevant to Health Maintenance Insurance [facility] GoodApril OPEN ACCESS Advance Directives For more information, please contact: [phone] * Full Code (Latest Code Status on File) Date Activated Date Inactivated Comments 03/27/2022 11:36 AM 03/27/2022 6:30 PM Care Teams Thermostat Mechanic Relationship Specialty Start Date End Date Nemesio Christianson MD [address] [place] [address] PCP - General Internal Medicine 12/28/24 Colby Diaz MD Consulting Physician Gastroenterology 10/05/22 Teresa Degroot NP [address] [place] [address] [place] [address] Nurse Practitioner Obstetrics and Gynecology 04/16/23 Suzanne Dudley NP [address] [place] [address] [place] [address] Nurse Practitioner Family Medicine 04/16/23 Deandra Sorto MD 4 [facility] [address] [address] Consulting Physician Obstetrics and Gynecology 09/18/23
--- NOTE | 2025-02-24 08:56 | ED.HA ---
HPI - Headache General Chief Complaint: Headache Stated Complaint: headache x 1 week Time Seen by Provider: 02/24/25 08:49 History of Present Illness HPI Narrative: 29-year-old female with history of migraine headaches presenting to the emergency room with chief complaint of a migraine headache in the right side of her head behind her eye and into her right ear. No trauma or injury. No fever chills. No altered mental status or confusion. She is otherwise in her normal state of health. Took Tylenol without any relief of symptoms. Symptoms ongoing for 1 week without any change in severity or intensity or any new associated symptoms. No reported nausea, vomiting, vision changes, abdominal pain, back pain, fever, chills. Previously was on topiramate as a preventative but not taking his medication presently. Does not see a neurologist yet but has a referral for 1 to be seen in August. Denies any chance of . Related Data Allergies Allergy/AdvReac Type Severity Reaction Status Date / Time rizatriptan Allergy Unknown Verified 08/21/24 12:02 latex AdvReac Hives Verified 08/21/24 12:02 Review of Systems Review of Systems: As reviewed above in HPI [facility] Past Medical History Medical History Jean's palsy PCOS (polycystic ovarian syndrome) High cholesterol H/O gastroesophageal reflux (GERD) Social History Social History Smoking status: Never smoker Substance use: never Exam Narrative: GENERAL: [Well-appearing, well-nourished, and in no acute distress.] HEAD: [Normocephalic, atraumatic.] EYES: [PERRLA and EOMI.] ENT: Nares clear, no rhinorrhea or epistaxis. Mucous membranes moist. TMs clear bilaterally with no otitis or effusion NECK: Supple. CHEST: [Clear to auscultation. No respiratory distress.] HEART: [Regular rate and rhythm]. No murmur heard. [Normal peripheral pulses.] ABDOMEN: [Soft, nondistended], [nontender], [No rigidity or guarding] EXTREMITIES: Normal range of motion. [No edema.] SKIN: Warm, dry, no rash. NEURO: [No focal deficits]. Alert and oriented [x3.] PSYCH: [Normal mood and affect.] Course Vital Signs Vital signs: Vital Signs Temperature 36.6 C 02/24/25 08:52 Pulse Rate 67 02/24/25 08:52 Respiratory Rate 18 02/24/25 08:52 Blood Pressure 119/80 02/24/25 08:52 Pulse Oximetry 100 02/24/25 08:52 Oxygen Delivery Room Air 02/24/25 08:52 Temperature 36.6 C 02/24/25 08:52 Pulse Rate 60 02/24/25 09:53 Respiratory Rate 14 02/24/25 09:53 Blood Pressure 138/81 02/24/25 09:53 Pulse Oximetry 99 02/24/25 09:53 Oxygen Delivery Room Air 02/24/25 08:52 MDM - Headache MDM Narrative Medical decision making narrative: 29-year-old female with history of migraine headaches presenting to the emergency department for headache for 1 weeks duration associated with pain behind her right eye and into her right ear. States it feels similar to her previous migraines. She took Tylenol 600 mg at home without any relief of symptoms. Does not presently take any migraine medications otherwise. She previously was on topiramate but did not like how this medication made her feel. She has an upcoming neurologist appointment in August. No head injury or trauma. No vision changes, nausea, vomiting. No neck pain or stiffness. She is otherwise well-appearing, not any acute distress. She has photophobia on examination but normal pupillary response and no conjunctival injection. Normal TMs bilaterally. Normal vital signs. Suspicion presently is for migraine headache versus cluster headache versus tension headache. Very low suspicion intracranial process such as subarachnoid given her unremarkable neurological assessment and her current historical features pointing towards migraine. Laboratory studies were obtained, CBC, CMP, test. No indications for head CT at this time. She was treated with Compazine, diphenhydramine, fluid bolus and Toradol and re-evaluated afterwards. Patient re-evaluated and had significant improvement her headache. She is resting comfortably. Repeat vital signs are normal. Workup shows no leukocytosis or significant anemia. Normal platelet count. Unremarkable electrolyte profile, normal renal function, normal glucose and normal LFTs. Negative test. Patient is safe and stable for discharge home at this time will be provided contact info for our local neurology group if they are able to see her quicker than August with her current referral. Patient comfortable with this plan and given return precautions prior to safe discharge home. Medical Records Attestation: I reviewed the patient's medical records. Lab Data Attestation: I reviewed the patient's lab results. 02/24/25 09:29 02/24/25 09:29 Labs: Lab Results 02/24/25 Range/Units 09:29 WBC 9.3 (4.5-10.0) K/mm3 RBC 4.23 (4.2-5.4) M/mm3 Hgb 11.7 L (12.0-15.0) g/dL Hct 37.9 (37.0-47.0) % MCV 89.6 (80-100) fl MCH 27.7 (26-34) pg MCHC 30.9 L (32-36) g/dl RDW 13.0 (11.5-14.5) % Plt Count 352 (150-375) k/mm3 MPV 9.8 (7.4-10.4) fl Immature Gran % (Auto) 0.4 (0-0.5) % Neut % (Auto) 61.6 (45.5-73.1) % Lymph % (Auto) 31.6 (18.3-44.2) % [place]ette % (Auto) 4.7 (2.6-8.5) % Eos % (Auto) 1.4 (0-4.4) % Baso % (Auto) 0.3 (0.2-1.2) % Lymph # (Auto) 2.94 (0.9-3.2) K/mm3 [place] # (Auto) 0.4 (0.1-0.6) K/mm3 Eos # (Auto) 0.1 (0-0.3) K/mm3 Baso # (Auto) 0.0 (0.0-0.1) K/mm3 Abs Immat Gran (auto) 0.04 H (0.00-0.031) K/mm3 Absolute Neuts (auto) 5.7 (1.3-6.7) K/mm3 Absolute Nucleated RBC 0.000 (0.0-0.012) K/mm3 Nucleated RBC % 0.0 (0.0-0.2) % Sodium 139 (137-145) mmol/L Potassium 3.9 (3.4-5.0) mmol/L Chloride 103 (98-107) mmol/L Carbon Dioxide 28 (22-30) mmol/L Anion Gap 8 (4-12) mmol/L BUN 5 L (7-17) mg/dL Creatinine 0.65 L (0.7-1.0) mg/dL Estim Creat Clear Calc 132 ml/min Estimated GFR > 60 (59 - ) Glucose 99 (65-110) mg/dL Calcium 8.7 (8.4-10.2) mg/dL Magnesium 1.9 (1.6-2.3) mg/dL Total Bilirubin 0.3 (0.2-1.3) mg/dL AST 20 (14-36) U/L ALT 20 (6-35) U/L Alkaline Phosphatase 110 (38-126) U/L Total Protein 7.0 (6.3-8.2) g/dL Albumin 3.8 (3.5-5.1) g/dL Serum HCG, Qual Negative Discharge Plan Discharge Clinical Impression: Migraine Patient Disposition: Home Condition: Stable Instructions: Antibiotic Form, Migraine Headache (ED) Additional Instructions: Follow-up with your primary care provider and provided neurologist for evaluation of chronic migraines. Return with any new or worsening concerns. Patient Language: Tamazight Prescriptions: No Action ibuprofen 600 mg tablet 600 mg PO TID PRN (Reason: pain) Qty: 20 0RF acetaminophen 500 mg capsule 1,000 mg PO Q6H PRN (Reason: pain) Qty: 20 0RF cyclobenzaprine 5 mg tablet 5 mg PO HS PRN (Reason: muscle spasm) Qty: 7 0RF cyclobenzaprine 10 mg tablet 10 mg PO TID PRN (Reason: muscle spasm) Qty: 14 0RF ibuprofen 600 mg tablet 600 mg PO Q6H PRN (Reason: pain) Qty: 14 0RF Follow-up/Referrals: Bijan,Michael Mccormack MD [Primary Care Provider] - Evelio Fierro MD [Physician] - 1 Month (Migraines) Arabella Weller MD [Physician] - 1 Month (Migraines) Time of Disposition: 10:51
--- OUTSIDE RECORDS SUMMARY | 2025-02-24 09:19 | XMS_ITS | Encounter Summary ---
Author Organization [facility] Healthcare Address [address] [place] [address] Care Team Providers Care Manager Contract Name Role Phone Colby Diaz MD Unavailable [phone] Teresa Degroot NP Unavailable Suzanne Dudley CLIENT OPERATIONS MANAGER Unavailable [phone] Deandra Sorto MD Unavailable [phone] Nemesio Christianson MD Primary Care Provider [phone] Encounter Details Date Type Department Care Team (Late st Contact Info) Description 02/03/2025 Results Follow-Up [facility] [address] [place] [address] [address] [place] [address] Deandra Sorto MD [address] [place] [address] Social History Tobacco Use Types Packs/Day [...] on file Legal Sex 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 Gender Identity Female 01/26/2021 10:41 PM CDT Sexual Orientation Bisexual 01/26/2021 10 :41 PM CDT documented as of this encounter Plan of Treatment Not on file documented as of this encounter Visit Diagnoses Not on filedocumented in this encounter Care Teams Manager Contract Relationship Specialty Start Date End Date Nemesio Christianson MD [facility] [place] [address] PCP - General Internal Medicine 12/28/24 Colby Diaz MD Consulting Physician Gastroenterology 10/05/22 Teresa Degroot NP [address] [place] [address] [place] [address] Nurse Practitioner Obstetrics and Gynecology 04/16/23 Suzanne Dudley NP [address] [facility] [place] [address] Nurse Practitioner Family Medicine 04/16/23 Deandra Sorto MD [address] [place] [address] [place] [address] Consulting Physician Obstetrics and Gynecology 09/18/23 documented as of this encounter
[2025-02-24] MEDS: diphenhydrAMINE HCl INJ 50 MG/ML VIAL 25 MG IV PUSH (09:20)
--- OUTSIDE RECORDS SUMMARY | 2025-02-24 09:20 | XMS_ITS | Clinical Summary ---
Author Organization [facility] Address [address] [place] [address] Care Team Providers Care Tobacco Sampler Name Role Phone Colby Diaz MD Unavailable Teresa Degroot NP Unavailable Suzanne Dudley RAZOR SHARPENER Unavailable [phone] Deandra Sorto MD Unavailable [phone] Nemesio Christianson MD Primary Care Provider Allergies [...] tablet 4 Active cholecalcifero l (VITAMIN D-3) 75323 unit capsuleIndicat ions:Vitamin D deficiency TAKE 1 [...] 11/22/2023 Assessment & Plan (11/22/2023 12:36 PM METAL CASTING TRADES WORKER): This is possibly a trigger point and [...] today Assessment & Plan (11/22/2023 12:36 PM METAL CASTING TRADES WORKER): The cervix is healing well The friable part was treated with silver nitrate Will see if this happens again Assessment & Plan (10/03/2023 3:17 PM METAL CASTING TRADES WORKER): Results reviewed She voices understanding Will plan to repeat pap q 4 months for the first year Then q 6m for the year after that. Assessment & Plan (09/16/2023 2:16 PM METAL CASTING TRADES WORKER): Will proceed as planned. Assessment & Plan (07/20/2023 11:59 AM CDT): Results reviewed To [facility] Procedure reviewed along with risk, benefits [...] --> [place] [address] [place] units daily on prior visit which is what she is doing now - recheck lab, order placed Lab Results Component Value Date 25HYDROVITD 17 (L) 12/11/2023 25HYDROVITD 19 (L) 04/10/2023 25HYDROVITD 25 (L) 08/01/2022 25HYDROVITD 33 04/19/2021 25HYDROVITD 18 (L) 08/25/2020 Assessment & Plan (12/12/2023 5:05 AM METAL CASTING TRADES WORKER): - chronic, not well controlled - worse [...] pill. Assessment & Plan (11/09/2022 12:11 PM METAL CASTING TRADES WORKER): Discussed irregular cycles and PCOS in depth. [...] 08/01/2022 Assessment & Plan (12/12/2023 5:07 AM METAL CASTING TRADES WORKER): - chronic condition, not at goal, worse [...] scheduled Assessment & Plan (10/05/2022 11:45 AM METAL CASTING TRADES WORKER): - chronic condition, not at goal - [...] management Assessment & Plan (10/05/2022 11:34 AM METAL CASTING TRADES WORKER): - chronic,controlled - currently on Hydroxyzine 25 mg 1/2 tablet at night as needed only - continue management Atypical chest pain 10/05/2022 Assessment & Plan (09/11/2024 8:14 AM METAL CASTING TRADES WORKER): - atypical chest pain, recurring condition, recently [...] may be related to anxiety - at [facility] since she has been without her Famotidine, [...] valve. Assessment & Plan (09/09/2023 10:37 AM METAL CASTING TRADES WORKER): - atypical chest pain, less frequent - [...] valve. Assessment & Plan (10/05/2022 1:47 PM METAL CASTING TRADES WORKER): - atypical chest pain - chronic in [...] 12/11/2023 Assessment & Plan (12/11/2023 8:57 AM METAL CASTING TRADES WORKER): - chronic condition, better controlled - mixed symptoms of anxiety and depression - states it is getting better - currently on Lexapro 10 mg daily - continue current management with changes made above Lab Results Component Value Date TSH 2.43 04/10/2023 Assessment & Plan (09/09/2023 8:57 AM METAL CASTING TRADES WORKER): - chronic condition, not well controlled with [...] 04/10/2023 Assessment & Plan (10/05/2022 11:34 AM METAL CASTING TRADES WORKER): - chronic condition, controlled with persistent symptoms [...] 07/09/2022 Assessment & Plan (09/11/2024 7:57 AM METAL CASTING TRADES WORKER): - chronic condition, controlled/stable - mixed symptoms [...] 12/11/2023 Assessment & Plan (12/11/2023 9:00 AM METAL CASTING TRADES WORKER): - chronic condition, better controlled - mixed symptoms of anxiety and depression - states it is getting better - currently on Lexapro 10 mg daily - continue current management Lab Results Component Value Date TSH 2.43 04/10/2023 Assessment & Plan (09/09/2023 8:57 AM METAL CASTING TRADES WORKER): - chronic condition, not well controlled with [...] 04/10/2023 Assessment & Plan (10/05/2022 11:33 AM METAL CASTING TRADES WORKER): - chronic condition, controlled with persistent symptoms [...] 05/23/2022 Assessment & Plan (10/05/2022 11:35 AM METAL CASTING TRADES WORKER): - chronic, stable - follows with GI [...] 03/22/2022 Assessment & Plan (09/11/2024 8:15 AM METAL CASTING TRADES WORKER): - chronic condition with recurrence of symptoms [...] management Assessment & Plan (12/11/2023 9:00 AM METAL CASTING TRADES WORKER): - chronic, not well controlled - without [...] management Assessment & Plan (09/09/2023 8:59 AM METAL CASTING TRADES WORKER): - chronic, not well controlled - without [...] above Assessment & Plan (10/05/2022 11:38 AM METAL CASTING TRADES WORKER): - chronic, under control - very infrequent [...] or bologna; no MSG as found in frisian food; no more than 1/2 banana a [...] visit Assessment & Plan (08/25/2020 11:19 AM METAL CASTING TRADES WORKER): HPI: Condition is worsening A&P: Discussed/ordered labs, [...] hot dogs, no MSG as found in frisian food, no more than 1/2 banana a [...] loss Assessment & Plan (12/11/2023 8:55 AM METAL CASTING TRADES WORKER): Wt Readings from Last 3 Encounters: 12/11/23 [...] increase to twice daily as recommended by CHANGE MANAGEMENT FACILITATOR. Advised patient it may take longer to notice weight loss with this medication and this medication can be increased if needed. Assessment & Plan (10/05/2022 11:39 AM METAL CASTING TRADES WORKER): Wt Readings from Last 3 Encounters: 10/05/22 [...] your mouth on an ana maría like RetiDiag Lower carb substitutions: Aldi carries a zero [...] in much longer they will become mushy [place] and/or coconut flour instead of regular flour [...] pork rinds For yogurt, try Two Good moroccan yogurt Use Pinterest for recipe ideas. Type [...] your mouth on an ana maría like RetiDiag Lower carb substitutions: Aldi carries a zero [...] in much longer they will become mushy [place] and/or coconut flour instead of regular flour [...] pork rinds For yogurt, try Two Good moroccan yogurt Use Pinterlise for recipe ideas. Type [...] your mouth on an ana maría like RetiDiag Lower carb substitutions: Aldi carries a zero [...] in much longer they will become mushy [place] and/or coconut flour instead of regular flour [...] pork rinds For yogurt, try Two Good moroccan yogurt Use Chance for recipe ideas. Type [...] your mouth on an ana maría like RetiDiag or Memvu Aldi carries a zero net carb bread [...] in much longer they will become mushy [place] and/or coconut flour instead of regular flour [...] pork rinds For yogurt, try Two Good moroccan yogurt Use Pinterest for recipe ideas. Type in low carb... Assessment & Plan (10/05/2021 3:30 PM METAL CASTING TRADES WORKER): HPI: Condition is not at/near goal goal BMI <30 A&P: Healthy, high-protein, lower carbohydrate, lower fat lifestyle and exercise for 150min/week recommended Substitutions: Recommend tracking everything you put in your mouth on an ana maría like RetiDiag or Memvu Aldi carries a zero net carb bread [...] in much longer they will become mushy [place] and/or coconut flour instead of regular flour [...] pork rinds For yogurt, try Two Good moroccan yogurt Use Pinterest for recipe ideas. Type in low carb... Assessment & Plan (04/19/2021 8:18 AM CDT): HPI: Condition is not at/near goal goal BMI <30 A&P: Healthy, high-protein, lower carbohydrate, lower fat lifestyle and exercise for 150min/week recommended Substitutions: Recommend tracking everything you put in your mouth on an ana maría like RetiDiag or Memvu Aldi carries a zero net carb bread [...] in much longer they will become mushy [place] and/or coconut flour instead of regular flour [...] pork rinds For yogurt, try Two Good moroccan yogurt Use Pinterest for recipe ideas. Type in low carb... Assessment & Plan (12/28/2020 8:50 AM METAL CASTING TRADES WORKER): Healthy, low carbohydrate lifestyle and exercise for [...] replacement For pasta, try using zucchini noodles [place] and/or coconut flour instead of regular flour For pizza dough, try fathead pizza dough recipe online chaffles recipe online For ice cream, try the brand Morphyarminda Use Roambi for recipe ideas. Type in low carb... Assessment & Plan (08/25/2020 11:21 AM METAL CASTING TRADES WORKER): HPI: Condition is stable A&P: Healthy, low [...] in much longer they will become mushy [place] and/or coconut flour instead of regular flour [...] Department Care Team Description 02/03/2025 Results Follow-Up [facility] [address] [place] [phone] Deandra Sorto MD 01/28/2025 2:00 PM CDT Office Visit [facility] [address] [place] [address] [place] [phone] Deandra Sorto MD Well woman exam (Primary Dx); High grade squamous intraepithelial lesion (HGSIL), grade 3 JORDYN, on biopsy of cervix; Screening examination for STI; Dysfunctional uterine bleeding; Hx of migraines 12/28/2024 2:19 AM CDT - 12/28/2024 5:32 AM CDT Emergency [facility] Emergency Department [address] [place] [address] Donte Wilson MD Abdominal pain (Primary Dx) [...] Cynthia Other cancer Neg Hx no breast, machine stitcher, or colon cancers sng 01/28/25 Relation Name [...] on file Legal Sex Female 4:14 AM METAL CASTING TRADES WORKER Gender Identity Female 01/26/2021 10:41 PM [...] has been evaluated with computer assisted technology. Fiber Optic Splicer Martin Quinn Comment: MERVIN MINER(ASCP) CT Screening Location: [place] [address] [address] MI[place] [address] Review production roustabout Dyllan Lama Comment: MATT CT(ASCP) CT Screening location: [place] [address] Administration [place] [address] Comment Dyllan Lama Comment: EXPLANATORY NOTE: The [...] ORDERA BLES Final Result Performing Organization Address City/[facility]/ZIP Co de Phone Number [facility] [address] [place] [address] * N. gonorrhoeae/C. trachomatis Amplification (01/28/2025 3:25 PM CDT) C. trachomatis RNA NOT DETECTED NOT DETECTED [facility] N. gonorrhoeae RNA NOT DETECTED NOT DETECTED [facility] Comment [facility] [place] Comment: The analytical performance characteristics of this assay, when used to test SurePath(TM) specimens have been determined by [employer]. The modifications have not been cleared or approved by the FDA. This assay has been validated pursuant to the CLIA regulations and is used for clinical purposes. For additional information, please refer to https://education.Robot App Store/faq/DAK874 (This link is being provided for information/ educational purposes only.) 01/28/2025 3:25 PM CDT 01/29/2025 9:31 PM CDT Deandra Sorto MD LAB MICROBIOLOGY - GENERAL ORDERABLES Final Result Performing Organization Address City/[facility]/ZIP Co de Phone Number [facility] [address] [place] [address] * (ABNORMAL) Urinalysis reflex to microscopic and [...] for uric acid stone formation. Source: [facility] Current Interpretive Data was last revised on [...] - GENERAL ORD ERABLES Final Result HAIM ON LICENSE OF [facility] (JACK) 1 [facility] [place] [address] * CT KUB Stone WO Contrast (12/28/2024 [...] Solomon Conn M.D. AR: ELIE Report ID: [id number] Reading Location: [place] [address] Procedure Note Solomon Conn MD - 12/28/2024 [...] Solomon Conn M.D. AR: ELIE Report ID: [id number] Reading Location: [id number] Donte Wilson MD IMG CT PROCEDURES Final [...] MD LAB BLOOD ORDERABLES Final Res ult [facility]NOTE 3[facility] (TALMAGE) 1 [facility] [place] [address] * (ABNORMAL) Differential, auto (12/28/2024 [...] BLOOD ORDERABLES Final Res ult HAIM PAULETTE (TALMAGE) 1 [facility] [place] [address] * (ABNORMAL) CBC with auto differential (12/28/2024 [...] MD LAB BLOOD ORDERABLES Final Res ult [facility] 1 [facility] [place] [address] * Comprehensive metabolic panel (12/28/2024 2:45 AM [...] MD LAB BLOOD ORDERABLES Final Res ult [facility] ([facility] 1 [facility] [place] [address] * Hepatitis C antibody Blood (08/13/2024 10:20 [...] last revised on 2020. Testing performed by: [facility], [address] [place] [address]., [id number] Blood 08/13/2024 10:2 0 AM CDT 08/13/2024 3:53 PM CDT Michael Thakkar MD LAB MICROBIOLOGY - [facility] ORDERABLES Final Result [facility] (TALMAGE) 1 [facility] [place] [address] from Last 3 Months or Most Recently Relevant to Health Maintenance Insurance [facility] [employer] OPEN ACCESS Advance Directives For more information, please contact: [phone] * Full Code (Latest Code Status on File) Date Activated Date Inactivated Comments 03/27/2022 11:36 AM 03/27/2022 6:30 PM Care Teams Tobacco Sampler Relationship Specialty Start Date End Date Nemesio Christianson MD [address] [place] [address] PCP - General Internal Medicine 12/28/24 Colby Diaz MD Consulting Physician Gastroenterology 10/05/22 Teresa Degroot NP [address] [place] [address] [place] [address] Nurse Practitioner Obstetrics and Gynecology 04/16/23 Suzanne Dudley NP [address] [place] [address] [address] [place], [place] [address] [address] Nurse Practitioner Family Medicine 04/16/23 Deandra Sorto MD [address] [place] [address] [place] [address] Consulting Physician Obstetrics and Gynecology 09/18/23
--- OUTSIDE RECORDS SUMMARY | 2025-02-24 09:20 | XMS_ITS | Clinical Summary ---
Author Organization [facility] Address [address] [place] [address] Care Team Providers Care Prepress Operator Name Role Phone Michael Thakkar MD Primary [...] complete this topic Insurance DAWN Care Teams Prepress Operator Relationship Specialty Start Date End Date Michael Thakkar MD PCP - General FAMILY PRACTICE 08/21/23
--- OUTSIDE RECORDS SUMMARY | 2025-02-24 09:20 | XMS_ITS | Referral Summary ---
Author Organization [facility] Address [address] [place] [address] Care Team Providers Care Neurology Nurse Name Role Phone Colby Diaz MD Unavailable [phone] Teresa Degroot NP Unavailable Suzanne Dudley CHILD DEVELOPMENT CONSULTANT Unavailable [phone] Deandra Sorto MD Unavailable [phone] Nemesio Christianson MD Primary Care Provider Encounters Date Type Department Care Team Description 02/03/2025 Results Follow-Up [facility] Higuera [address] [place] [address] [address] [place] [phone] Deandra Sorto MD 01/28/2025 2:00 PM CDT Office Visit [facility] [address] [place] [address] [address] [phone] Deandra Sorto MD Well woman exam (Primary Dx); High grade squamous intraepithelial lesion (HGSIL), grade 3 JORDYN, on biopsy of cervix; Screening examination for STI; Dysfunctional uterine bleeding; Hx of migraines 12/28/2024 2:19 AM CDT - 12/28/2024 5:32 AM CDT Emergency [facility] Emergency Department 1 [place] [address] Donte Wilson MD Abdominal pain (Primary Dx) [...] tablet 4 Active cholecalcifero l (VITAMIN D-3) 70834 unit capsuleIndicat ions:Vitamin D deficiency TAKE 1 [...] 11/22/2023 Assessment & Plan (11/22/2023 12:36 PM REFINERY PROCESS ENGINEER): This is possibly a trigger point and [...] today Assessment & Plan (11/22/2023 12:36 PM REFINERY PROCESS ENGINEER): The cervix is healing well The friable part was treated with silver nitrate Will see if this happens again Assessment & Plan (10/03/2023 3:17 PM REFINERY PROCESS ENGINEER): Results reviewed She voices understanding Will plan to repeat pap q 4 months for the first year Then q 6m for the year after that. Assessment & Plan (09/16/2023 2:16 PM REFINERY PROCESS ENGINEER): Will proceed as planned. Assessment & Plan (07/20/2023 11:59 AM CDT): Results reviewed To [facility] Procedure reviewed along with risk, benefits [...] --> [place] [address] [place] units daily on prior visit which is what she is doing now - recheck lab, order placed Lab Results Component Value Date 25HYDROVITD 17 (L) 12/11/2023 25HYDROVITD 19 (L) 04/10/2023 25HYDROVITD 25 (L) 08/01/2022 25HYDROVITD 33 04/19/2021 25HYDROVITD 18 (L) 08/25/2020 Assessment & Plan (12/12/2023 5:05 AM REFINERY PROCESS ENGINEER): - chronic, not well controlled - worse [...] pill. Assessment & Plan (11/09/2022 12:11 PM REFINERY PROCESS ENGINEER): Discussed irregular cycles and PCOS in depth. [...] 08/01/2022 Assessment & Plan (12/12/2023 5:07 AM REFINERY PROCESS ENGINEER): - chronic condition, not at goal, worse [...] scheduled Assessment & Plan (10/05/2022 11:45 AM REFINERY PROCESS ENGINEER): - chronic condition, not at goal - [...] management Assessment & Plan (10/05/2022 11:34 AM REFINERY PROCESS ENGINEER): - chronic,controlled - currently on Hydroxyzine 25 mg 1/2 tablet at night as needed only - continue management Atypical chest pain 10/05/2022 Assessment & Plan (09/11/2024 8:14 AM REFINERY PROCESS ENGINEER): - atypical chest pain, recurring condition, recently [...] valve. Assessment & Plan (09/09/2023 10:37 AM REFINERY PROCESS ENGINEER): - atypical chest pain, less frequent - [...] valve. Assessment & Plan (10/05/2022 1:47 PM REFINERY PROCESS ENGINEER): - atypical chest pain - chronic in [...] 12/11/2023 Assessment & Plan (12/11/2023 8:57 AM REFINERY PROCESS ENGINEER): - chronic condition, better controlled - mixed symptoms of anxiety and depression - states it is getting better - currently on Lexapro 10 mg daily - continue current management with changes made above Lab Results Component Value Date TSH 2.43 04/10/2023 Assessment & Plan (09/09/2023 8:57 AM REFINERY PROCESS ENGINEER): - chronic condition, not well controlled with [...] 04/10/2023 Assessment & Plan (10/05/2022 11:34 AM REFINERY PROCESS ENGINEER): - chronic condition, controlled with persistent symptoms [...] 07/09/2022 Assessment & Plan (09/11/2024 7:57 AM REFINERY PROCESS ENGINEER): - chronic condition, controlled/stable - mixed symptoms [...] 12/11/2023 Assessment & Plan (12/11/2023 9:00 AM REFINERY PROCESS ENGINEER): - chronic condition, better controlled - mixed symptoms of anxiety and depression - states it is getting better - currently on Lexapro 10 mg daily - continue current management Lab Results Component Value Date TSH 2.43 04/10/2023 Assessment & Plan (09/09/2023 8:57 AM REFINERY PROCESS ENGINEER): - chronic condition, not well controlled with [...] 04/10/2023 Assessment & Plan (10/05/2022 11:33 AM REFINERY PROCESS ENGINEER): - chronic condition, controlled with persistent symptoms [...] 05/23/2022 Assessment & Plan (10/05/2022 11:35 AM REFINERY PROCESS ENGINEER): - chronic, stable - follows with GI [...] 03/22/2022 Assessment & Plan (09/11/2024 8:15 AM REFINERY PROCESS ENGINEER): - chronic condition with recurrence of symptoms [...] management Assessment & Plan (12/11/2023 9:00 AM REFINERY PROCESS ENGINEER): - chronic, not well controlled - without [...] management Assessment & Plan (09/09/2023 8:59 AM REFINERY PROCESS ENGINEER): - chronic, not well controlled - without [...] above Assessment & Plan (10/05/2022 11:38 AM REFINERY PROCESS ENGINEER): - chronic, under control - very infrequent [...] or bologna; no MSG as found in armenian food; no more than 1/2 banana a [...] visit Assessment & Plan (08/25/2020 11:19 AM REFINERY PROCESS ENGINEER): HPI: Condition is worsening A&P: Discussed/ordered labs, [...] hot dogs, no MSG as found in armenian food, no more than 1/2 banana a [...] loss Assessment & Plan (12/11/2023 8:55 AM REFINERY PROCESS ENGINEER): Wt Readings from Last 3 Encounters: 12/11/23 [...] increase to twice daily as recommended by NURSE ESTHETICIAN. Advised patient it may take longer to notice weight loss with this medication and this medication can be increased if needed. Assessment & Plan (10/05/2022 11:39 AM REFINERY PROCESS ENGINEER): Wt Readings from Last 3 Encounters: 10/05/22 [...] your mouth on an ana maría like NurseBuddy Lower carb substitutions: Kelechi carries a zero [...] in much longer they will become mushy Yale and/or coconut flour instead of regular flour [...] pork rinds For yogurt, try Two Good danish yogurt Use Chance for recipe ideas. Type [...] your mouth on an ana maría like NurseBuddy Lower carb substitutions: Aldi carries a zero [...] in much longer they will become mushy Yale and/or coconut flour instead of regular flour [...] pork rinds For yogurt, try Two Good danish yogurt Use Chance for recipe ideas. Type [...] your mouth on an ana maría like NurseBuddy Lower carb substitutions: Aldi carries a zero [...] in much longer they will become mushy Yale and/or coconut flour instead of regular flour [...] pork rinds For yogurt, try Two Good danish yogurt Use Pinterest for recipe ideas. Type [...] your mouth on an ana maría like NurseBuddy or CINEPASS Aldi carries a zero net carb bread [...] in much longer they will become mushy Yale and/or coconut flour instead of regular flour [...] pork rinds For yogurt, try Two Good danish yogurt Use Chance for recipe ideas. Type in low carb... Assessment & Plan (10/05/2021 3:30 PM REFINERY PROCESS ENGINEER): HPI: Condition is not at/near goal goal BMI <30 A&P: Healthy, high-protein, lower carbohydrate, lower fat lifestyle and exercise for 150min/week recommended Substitutions: Recommend tracking everything you put in your mouth on an ana maría like NurseBuddy or Instaclustri carries a zero net carb bread If [...] in much longer they will become mushy Yale and/or coconut flour instead of regular flour [...] pork rinds For yogurt, try Two Good danish yogurt Use Pinterest for recipe ideas. Type in low carb... Assessment & Plan (04/19/2021 8:18 AM CDT): HPI: Condition is not at/near goal goal BMI <30 A&P: Healthy, high-protein, lower carbohydrate, lower fat lifestyle and exercise for 150min/week recommended Substitutions: Recommend tracking everything you put in your mouth on an ana maría like NurseBuddy or CINEPASS Aldi carries a zero net carb bread [...] in much longer they will become mushy Yale and/or coconut flour instead of regular flour [...] pork rinds For yogurt, try Two Good danish yogurt Use Pinterest for recipe ideas. Type in low carb... Assessment & Plan (12/28/2020 8:50 AM REFINERY PROCESS ENGINEER): Healthy, low carbohydrate lifestyle and exercise for [...] replacement For pasta, try using zucchini noodles Yale and/or coconut flour instead of regular flour For pizza dough, try fathead pizza dough recipe online chaffles recipe online For ice cream, try the brand Enlightened Use Pinterest for recipe ideas. Type in low carb... Assessment & Plan (08/25/2020 11:21 AM REFINERY PROCESS ENGINEER): HPI: Condition is stable A&P: Healthy, low [...] in much longer they will become mushy Yale and/or coconut flour instead of regular flour [...] on file Legal Sex Female 4:14 AM REFINERY PROCESS ENGINEER Gender Identity Female 01/26/2021 10:41 PM CDT [...] has been evaluated with computer assisted technology. Drying Machine Operator Package Yarns Martin Quinn Comment: MERVIN MINER(ASCP) CT Screening Location: [place] [address] Administration MIKAL Draper [id number] Review fire alarm mechanic Dyllan Lama Comment: MERVIN GUTIERREZ(ASCP) CT Screening location: [place] [address] Administration MIKAL [place] [id number] Comment Dyllan Lama Comment: EXPLANATORY NOTE: The [...] MD LAB CYTOLOGY ORDERA BLES Final Result [facility] [address] [place] [address] * N. gonorrhoeae/C. trachomatis Amplification (01/28/2025 3:25 PM CDT) C. trachomatis RNA NOT DETECTED NOT DETECTED [facility] N. gonorrhoeae RNA NOT DETECTED NOT DETECTED [facility] Comment [facility] [place] Comment: The analytical performance characteristics of this assay, when used to test SurePath(TM) specimens have been determined by [facility]. The modifications have not been cleared or approved by the FDA. This assay has been validated pursuant to the CLIA regulations and is used for clinical purposes. For additional information, please refer to https://education.HomeSpace/faq/TLP781 (This link is being provided for information/ educational purposes only.) 01/28/2025 3:25 PM CDT 01/29/2025 9:31 PM CDT Deandra Sorto MD LAB MICROBIOLOGY - GENERAL ORDERABLES Final Result Performing Organization Address [facility]/ZIP Co de Phone Number [facility] [address] [place] [address] * (ABNORMAL) Urinalysis reflex to microscopic and [...] tendency for uric acid stone formation. Source: [facility] Laboratories Current Interpretive Data was last [...] ERABLES Final Result [facility] ([facility]) [facility] Department [place] [address] * CT KUB Stone WO Contrast (12/28/2024 [...] Solomon Conn M.D. AR: ELIE Report ID: [id number] Reading Location: [id number] Procedure Note Solomon Conn MD - 12/28/2024 [...] Solomon Conn M.D. AR: ELIE Report ID: [id number] Reading Location: [id number] Donte Wilson MD IMG CT PROCEDURES Final [...] LAB BLOOD ORDERABLES Final Res ult [facility] ([place] [place] [address] * (ABNORMAL) Differential, auto (12/28/2024 [...] Final Res ult [facility] ([place]) 1 [facility] Department of Laboratories [place], [place] [id number] * (ABNORMAL) CBC with auto differential (12/28/2024 2:45 AM CDT) WBC 14.0(H) 3.8 - 9.9 K/cumm Hgb 12.1 11.9 - 15.5 g/dL [facility] ([place]) Hct 38.0 35.6 - 45.5 % [facility] ([facility] Plt 356 150 - 400 K/cumm [facility] ([place]) MPV 10.0 9.1 - 12.3 fL [facility] ([place]) RBC 4.30 3.90 - 5.20 M/cumm [facility] ([place]) MCV 88.4 81.3 - 96.4 fL [facility] ([facility] MCH 28.1 27.1 - 33.3 pg [facility] ([facility] MCHC 31.8(L) 32.3 - 35.7 g/dL [facility] ([place]) RDW CV 13.4 11.1 - 14.9 % [facility] ([facility] RDW SD 43.0 35.7 - 48.1 fL [facility] ([place] NRBC abs 0.00 0.00 - 0.01 K/cumm [facility] ([facility] Blood 12/28/2024 2:45 AM CDT 12/28/2024 2:48 AM CDT us Donte Wilson MD LAB BLOOD ORDERABLES Final Res ult [facility] ([place]) 1 [facility] Department of Laboratories [place], [place] [id number] * Comprehensive metabolic panel (12/28/2024 2:45 AM CDT) Sodium 137 135 - 145 mmol/L Potassium, pl 4.3 3.3 - 4.9 mmol/L [facility] ([facility] Chloride 103 97 - 110 mmol/L [facility]) CO2 24 22 - 32 mmol/L [facility]) Anion gap 10 2 - 15 mmol/L [facility] ([place]) BUN 12 6 - 25 mg/dL [facility] ([place] Creatinine 0.81 0.60 - 1.10 mg/dL [facility] ([place] Glucose 99 70 - 199 mg/dL [facility] ([facility] Comment: Interpretive Data Fasting [...] Final Res ult [facility] ([place]) [facility] [place] [address] * Hepatitis C antibody Blood (08/13/2024 10:20 [...] last revised on 2020. Testing performed by: [facility], [address] [place] [address], [place] [address] Blood 08/13/2024 10:2 0 AM CDT 08/13/2024 3:53 PM CDT Michael Thakkar MD LAB MICROBIOLOGY - GENE RAL ORDERABLES Final Result [facility] ([place]) [facility] [place] [address] from Last 3 Months or Most Recently Relevant to Health Maintenance Insurance [facility] Diveboard OPEN ACCESS Advance Directives For more information, please contact: [phone] * Full Code (Latest Code Status on File) Date Activated Date Inactivated Comments 03/27/2022 11:36 AM 03/27/2022 6:30 PM Care Teams Neurology Nurse Relationship Specialty Start Date End Date Nemesio Christianson MD [address] [place] [address] PCP - General Internal Medicine 12/28/24 Colby Diaz MD Consulting Physician Gastroenterology 10/05/22 Teresa Degroot NP [address] [place] [place] [address] [place] [address] Nurse Practitioner Obstetrics and Gynecology 04/16/23 Suzanne Dudley NP [address] [place] [place] [address] [place] [address] Nurse Practitioner Family Medicine 04/16/23 Deandra Sorto MD [address] [facility] [address] [address] Consulting Physician Obstetrics and Gynecology 09/18/23
--- OUTSIDE RECORDS SUMMARY | 2025-02-24 09:20 | XMS_ITS ---
Author Organization [facility] Address [address] [place] [address] Care Team Providers Care Directional Survey Drafter Name Role Phone Colby Diaz MD Unavailable [phone] Teresa Degroot NP Unavailable Suzanne Dudley COMPOSITION FLOOR LAYER Unavailable [phone] Deandra Sorto MD Unavailable [phone] Nemesio Christianson MD Primary Care Provider [phone] Active Problems Problem Noted Date Diagnosed Date [...] 11/22/2023 Assessment & Plan (11/22/2023 12:36 PM BACK HOE OPERATOR): This is possibly a trigger point and [...] today Assessment & Plan (11/22/2023 12:36 PM BACK HOE OPERATOR): The cervix is healing well The friable part was treated with silver nitrate Will see if this happens again Assessment & Plan (10/03/2023 3:17 PM BACK HOE OPERATOR): Results reviewed She voices understanding Will plan to repeat pap q 4 months for the first year Then q 6m for the year after that. Assessment & Plan (09/16/2023 2:16 PM BACK HOE OPERATOR): Will proceed as planned. Assessment & Plan (07/20/2023 11:59 AM CDT): Results reviewed To [facility] Procedure reviewed along with risk, benefits [...] --> [place] [address] [place] units daily on prior visit which is what she is doing now - recheck lab, order placed Lab Results Component Value Date 25HYDROVITD 17 (L) 12/11/2023 25HYDROVITD 19 (L) 04/10/2023 25HYDROVITD 25 (L) 08/01/2022 25HYDROVITD 33 04/19/2021 25HYDROVITD 18 (L) 08/25/2020 Assessment & Plan (12/12/2023 5:05 AM BACK HOE OPERATOR): - chronic, not well controlled - worse [...] pill. Assessment & Plan (11/09/2022 12:11 PM BACK HOE OPERATOR): Discussed irregular cycles and PCOS in depth. [...] 08/01/2022 Assessment & Plan (12/12/2023 5:07 AM BACK HOE OPERATOR): - chronic condition, not at goal, worse [...] scheduled Assessment & Plan (10/05/2022 11:45 AM BACK HOE OPERATOR): - chronic condition, not at goal - [...] management Assessment & Plan (10/05/2022 11:34 AM BACK HOE OPERATOR): - chronic,controlled - currently on Hydroxyzine 25 mg 1/2 tablet at night as needed only - continue management Atypical chest pain 10/05/2022 Assessment & Plan (09/11/2024 8:14 AM BACK HOE OPERATOR): - atypical chest pain, recurring condition, recently [...] valve. Assessment & Plan (09/09/2023 10:37 AM BACK HOE OPERATOR): - atypical chest pain, less frequent - [...] valve. Assessment & Plan (10/05/2022 1:47 PM BACK HOE OPERATOR): - atypical chest pain - chronic in [...] 12/11/2023 Assessment & Plan (12/11/2023 8:57 AM BACK HOE OPERATOR): - chronic condition, better controlled - mixed symptoms of anxiety and depression - states it is getting better - currently on Lexapro 10 mg daily - continue current management with changes made above Lab Results Component Value Date TSH 2.43 04/10/2023 Assessment & Plan (09/09/2023 8:57 AM BACK HOE OPERATOR): - chronic condition, not well controlled with [...] 04/10/2023 Assessment & Plan (10/05/2022 11:34 AM BACK HOE OPERATOR): - chronic condition, controlled with persistent symptoms [...] 07/09/2022 Assessment & Plan (09/11/2024 7:57 AM BACK HOE OPERATOR): - chronic condition, controlled/stable - mixed symptoms [...] 12/11/2023 Assessment & Plan (12/11/2023 9:00 AM BACK HOE OPERATOR): - chronic condition, better controlled - mixed symptoms of anxiety and depression - states it is getting better - currently on Lexapro 10 mg daily - continue current management Lab Results Component Value Date TSH 2.43 04/10/2023 Assessment & Plan (09/09/2023 8:57 AM BACK HOE OPERATOR): - chronic condition, not well controlled with [...] 04/10/2023 Assessment & Plan (10/05/2022 11:33 AM BACK HOE OPERATOR): - chronic condition, controlled with persistent symptoms [...] 05/23/2022 Assessment & Plan (10/05/2022 11:35 AM BACK HOE OPERATOR): - chronic, stable - follows with GI [...] 03/22/2022 Assessment & Plan (09/11/2024 8:15 AM BACK HOE OPERATOR): - chronic condition with recurrence of symptoms [...] management Assessment & Plan (12/11/2023 9:00 AM BACK HOE OPERATOR): - chronic, not well controlled - without [...] management Assessment & Plan (09/09/2023 8:59 AM BACK HOE OPERATOR): - chronic, not well controlled - without [...] above Assessment & Plan (10/05/2022 11:38 AM BACK HOE OPERATOR): - chronic, under control - very infrequent [...] or bologna; no MSG as found in burundian food; no more than 1/2 banana a [...] visit Assessment & Plan (08/25/2020 11:19 AM BACK HOE OPERATOR): HPI: Condition is worsening A&P: Discussed/ordered labs, [...] hot dogs, no MSG as found in burundian food, no more than 1/2 banana a [...] loss Assessment & Plan (12/11/2023 8:55 AM BACK HOE OPERATOR): Wt Readings from Last 3 Encounters: 12/11/23 [...] increase to twice daily as recommended by OPERATORS SCHOOL MANAGER. Advised patient it may take longer to notice weight loss with this medication and this medication can be increased if needed. Assessment & Plan (10/05/2022 11:39 AM BACK HOE OPERATOR): Wt Readings from Last 3 Encounters: 10/05/22 [...] your mouth on an ana maría like [employer]ova Lower carb substitutions: Aldi carries a zero [...] in much longer they will become mushy Marydel and/or coconut flour instead of regular flour [...] pork rinds For yogurt, try Two Good romansh yogurt Use Chance for recipe ideas. Type [...] your mouth on an ana maría like BioNova Lower carb substitutions: Aldi carries a zero [...] in much longer they will become mushy Marydel and/or coconut flour instead of regular flour [...] pork rinds For yogurt, try Two Good romansh yogurt Use Chance for recipe ideas. Type [...] your mouth on an ana maría like BioNova Lower carb substitutions: Aldi carries a zero [...] in much longer they will become mushy Marydel and/or coconut flour instead of regular flour [...] pork rinds For yogurt, try Two Good romansh yogurt Use Chance for recipe ideas. Type [...] your mouth on an ana maría like BioNova or YesVideo Aldi carries a zero net carb bread [...] in much longer they will become mushy Marydel and/or coconut flour instead of regular flour [...] pork rinds For yogurt, try Two Good romansh yogurt Use Chance for recipe ideas. Type in low carb... Assessment & Plan (10/05/2021 3:30 PM BACK HOE OPERATOR): HPI: Condition is not at/near goal goal BMI <30 A&P: Healthy, high-protein, lower carbohydrate, lower fat lifestyle and exercise for 150min/week recommended Substitutions: Recommend tracking everything you put in your mouth on an ana maría like BioNova or YesVideo Aldi carries a zero net carb bread [...] in much longer they will become mushy Marydel and/or coconut flour instead of regular flour [...] pork rinds For yogurt, try Two Good romansh yogurt Use Pinterest for recipe ideas. Type in low carb... Assessment & Plan (04/19/2021 8:18 AM CDT): HPI: Condition is not at/near goal goal BMI <30 A&P: Healthy, high-protein, lower carbohydrate, lower fat lifestyle and exercise for 150min/week recommended Substitutions: Recommend tracking everything you put in your mouth on an ana maría like BioNova or YesVideo Aldi carries a zero net carb bread [...] in much longer they will become mushy Marydel and/or coconut flour instead of regular flour [...] pork rinds For yogurt, try Two Good romansh yogurt Use Pinterest for recipe ideas. Type in low carb... Assessment & Plan (12/28/2020 8:50 AM BACK HOE OPERATOR): Healthy, low carbohydrate lifestyle and exercise for [...] replacement For pasta, try using zucchini noodles Marydel and/or coconut flour instead of regular flour For pizza dough, try fathead pizza dough recipe online chaffles recipe online For ice cream, try the brand Enlightened Use Pinterest for recipe ideas. Type in low carb... Assessment & Plan (08/25/2020 11:21 AM BACK HOE OPERATOR): HPI: Condition is stable A&P: Healthy, low [...] in much longer they will become mushy Marydel and/or coconut flour instead of regular flour [...]
--- OUTSIDE RECORDS SUMMARY | 2025-02-24 09:20 | XMS_ITS | Encounter Summary ---
Author Organization [facility] Healthcare Address [address] [place] [address] Care Team Providers Care Crime Analyst Name Role Phone Iftikhar Yolanda STATON Primary Care Provider Colby Diaz MD Unavailable [phone] Michael Thakkar MD Primary Care Provider Teresa Degroot NP Unavailable [phone] Suzanne Dudley CHANNELER RUNNER Unavailable [phone] Deandra Sorto MD Unavailable [phone] Nemesio Christianson MD Primary Care Provider [phone] Encounter Details Date Type Department Care Team (Late st Contact Info) Description 02/06/2021 Telephone [facility] [address] [place] [address] Don John, Social History Tobacco Use Types [...] on file Legal Sex Female 4:14 AM PAIRER SUBSTANDARD Gender Identity Female 01/26/2021 10:41 PM CDT Sexual Orientation Bisexual 01/26/2021 10 :41 PM CDT documented as of this encounter Plan of Treatment Not on file documented as of this encounter Visit Diagnoses Not on filedocumented in this encounter Additional Health Concerns Infection Onset Date Last Indicated Resolved Time COVID: Suspected 10/10/2022 10/10/2022 10/10/2022 1:19 AM PAIRER SUBSTANDARD Influenza, adult 10/10/2022 10/10/2022 10/17/2022 3:05 AM PAIRER SUBSTANDARD COVID: Suspected 11/29/2022 11/29/2022 11/29/2022 11:21 AM PAIRER SUBSTANDARD documented as of this encounter Care Teams Crime Analyst Relationship Specialty Start Date End Date Yolanda Buitrago NP PCP - General Family Medicine 08/25/20 10/04/22 Michael Thakkar MD PCP - General Family Medicine 10/05/22 12/13/24 Nemesio Christianson MD Replaced by [facility] [place] [id number] PCP - General Internal Medicine 12/28/24 Colby Diaz MD Consulting Physician Gastroenterology 10/05/22 Teresa Degroot CHANNELER RUNNER [address] [place] [address] [place] [address] Nurse Practitioner Obstetrics and Gynecology 04/16/23 Suzanne Dudley NP [address] [place] [address] [place] [address] Nurse Practitioner Family Medicine 04/16/23 Deandra Sorto MD [address] [place] [address] [place] [address] Consulting Physician Obstetrics and Gynecology 09/18/23 documented as of this encounter
[2025-02-24] MEDS: SODIUM CHLORIDE 0.9% IV 1,000 ML 999 ML IV CONT (09:21)
[2025-02-24] MEDS: KETOROLAC 15 MG/ML VIAL (*BKC) IV PUSH (09:22)
[2025-02-24] MEDS: PROCHLORPERAZINE EDISYLATE 10 MG/2 ML VIAL IV PUSH (09:22)
[2025-02-24 09:36] LABS: Basophils Percent Auto 0.3 % (0.2-1.2); Eosinophils Absolute Auto 0.1 K/mm3 (0-0.3); Eosinophils Percent Auto 1.4 % (0-4.4); Hematocrit 37.9 % (37.0-47.0); Hemoglobin 11.7 g/dL (12.0-15.0); Immature Granulocyte Absolute 0.04 K/mm3 (0.00-0.031); Immature Granulocyte Percent A 0.4 % (0-0.5); Lymphocytes Absolute Auto 2.94 K/mm3 (0.9-3.2); Lymphocytes Percent Auto 31.6 % (18.3-44.2); Mean Corpuscular HGB Conc 30.9 g/dl (32-36); Mean Corpuscular Hemoglobin 27.7 pg (26-34); Mean Corpuscular Volume 89.6 fl (80-100); Mean Platelet Volume 9.8 fl (7.4-10.4); Monocytes Absolute Auto 0.4 K/mm3 (0.1-0.6); Monocytes Percent Auto 4.7 % (2.6-8.5); Neutrophils Absolute Auto 5.7 K/mm3 (1.3-6.7); Neutrophils Percent Auto 61.6 % (45.5-73.1); Platelet Count Result 352 k/mm3 (150-375); Red Blood Count 4.23 M/mm3 (4.2-5.4); White Blood Count 9.3 K/mm3 (4.5-10.0)
[2025-02-24 09:47] LABS: Alanine Aminotransferase 20 U/L (6-35); Albumin Level 3.8 g/dL (3.5-5.1); Alkaline Phosphatase 110 U/L (38-126); Anion Gap 8 mmol/L (4-12); Aspartate Amino Transferase 20 U/L (14-36); Bilirubin,Total 0.3 mg/dL (0.2-1.3); Blood Urea Nitrogen 5 mg/dL (7-17); Calcium 8.7 mg/dL (8.4-10.2); Carbon Dioxide 28 mmol/L (22-30); Chloride 103 mmol/L (98-107); Estimated CRCL calculation 132 ml/min; Estimated Glomerular Filt Rate > 60; Glucose 99 mg/dL (65-110); Magnesium 1.9 mg/dL (1.6-2.3); Potassium 3.9 mmol/L (3.4-5.0); Sodium 139 mmol/L (137-145)
[2025-02-24 09:53] VITALS: BP 138/81; PULSE 60; RESP 14; O2SAT 99
[2025-02-24 10:01] LABS: SPREG INTERNAL CONTROL Positive; Serum Qual hCG Negative
[2025-02-24 11:02] VITALS: BP 131/90; PULSE 58; RESP 14; TEMP 36.5; O2SAT 100
== END 2025-02-24 11:10 | disposition home or self-care (01) ==
PROVIDERS: Emergency Provider Student in an Organized Health Care Education/Training Program; PCP Family Medicine
DX: G43.909 Migraine, unspecified, not intractable, without status migrainosus (principal); E28.2 Polycystic ovarian syndrome; E78.00 Pure hypercholesterolemia, unspecified; K21.9 Gastro-esophageal reflux disease without esophagitis
CPT/HCPCS: 36415; 80053; 83735; 84703; 85025; 96361; 96374; 96375; 99284; J0780; J1200; J1885; J7030

== ENCOUNTER 2025-08-24 08:57 | Emergency (ER) | payer OTHER, SELFPAY ==
[2025-08-24 09:04] VITALS: BP 134/75; PULSE 64; RESP 18; TEMP 36.4; O2SAT 100
--- NOTE | 2025-08-24 09:16 | ED_ITS ---
HPI - URI/Sore Throat General Chief Complaint: Upper Respiratory Infection Stated Complaint: Sore Throat and r ear pain Time Seen by Provider: 08/24/25 09:16 Source: patient, RN notes reviewed and old records reviewed Mode of arrival: ambulatory Limitations: no limitations History of Present Illness HPI Narrative: 30-year-old female who presents to [facility] with complaints of bilateral ear pain, sore throat, sinus congestion and drainage and some tenderness of left side of neck and feeling swollen for the past 3 days. Patient reports that she has not had any known fevers chills or sweats and has not taken any OTC medications for her symptoms. 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 She states that she has had history of sinus problems in the past. MD elicited complaint: sore throat, rhinorrhea, nasal congestion and other (ear pain,) Pertinent past history: other (sinus problems) Onset (ago): day(s) (3) Pain scale (0-10): 6 Description of mucous: clear Able to tolerate fluids by mouth: Yes Treatments prior to arrival: none Related Data Home Medications ?Medication ?Instructions ?Recorded ?Confirmed ?Last Taken ?Type atorvastatin 40 mg tablet mg 08/24/25 Unknown History cholecalciferol (vitamin D3) 250 08/24/25 Unknown Hi story mcg (10,000 unit) capsule famotidine 40 mg tablet mg 08/24/25 Unknown History norelgestromin 150 mcg-e.estradiol patch 08/24/25 Unk nown History 35 mcg/24 hr weekly transderm patch (Xulane) Allergies Allergy/AdvReac Type Severity Reaction Status Date / Time rizatriptan Allergy Unknown Verified 08/24/25 09:13 latex AdvReac Hives Verified 08/24/25 09:13 Review of Systems Review of Systems: CONSTITUTIONAL: Denies malaise, chills, sweats, or fever. EYES: Denies visual changes, redness, or discharge. ENT: Reports rhinorrhea, congestion, sinus pressure, bilateral otalgia and positive for sore throat. CARDIOVASCULAR: Denies chest pain, palpitations, or edema. RESPIRATORY: Reports no acute cough.? Denies dyspnea. GASTROINTESTINAL: Denies abdominal pain, nausea, vomiting, diarrhea SKIN: Denies rash or itching. MUSCULOSKELETAL: Denies myalgia. NEUROLOGIC:Reports some mild headache. All systems reviewed & are unremarkable except as noted in HPI and below PMFSH Past Medical History Medical History Anxiety and depression Jean's palsy PCOS (polycystic ovarian syndrome) High cholesterol H/O gastroesophageal reflux (GERD) Surgical History Surgical History History of conization of cervix Social History Social History Smoking status: Never smoker Substance use: never Comments At time of signature, agree with nursing past medical, surgical, social and family history. There is no relevant family history pertinent to the presenting complaint Exam Narrative: GENERAL: Well-appearing, well-nourished, and in no acute distress. HEAD: Normocephalic EYES: PERRLA, conjunctivae clear ENT: Nares clear, turbinates edematous and erythematous, clear discharge, sinus pressure, mild headaches intermittent Mucous membranes moist. TM pearly colindres with dull light reflex bilaterally; no tragal tenderness. Oropharynx erythematous without lesions. Tonsils not enlarged and without exudate, no drooling, no hoarseness, no trismus, uvula midline.post nasal drainage NECK: Supple. left lymphadenopathy CHEST: Clear to auscultation, breath sounds equal. No wheezing, rhonchi, rales, or stridor. No respiratory distress, speaks in full sentences.no cough noted, SAO2 100% on room air HEART: Regular rate and rhythm. No murmur heard. SKIN: Warm, dry, no rash. NEURO: Alert and oriented x3. PSYCH: Normal mood and affect Course Course Emergency Course: Patient is aware of diagnosis, understands and agrees to treatment plan.? Antic ipatory guidance given.? Patient agrees to follow-up as directed and is aware of reasons to seek care at the emergency department. Portions of this record may have been created with voice recognition software Level of Care: Express Care Visit Vital Signs Vital signs: Vital Signs Temperature 36.4 C L 08/24/25 09:04 Pulse Rate 64 08/24/25 09:04 Respiratory Rate 18 08/24/25 09:04 Blood Pressure 134/75 08/24/25 09:04 Pulse Oximetry 100 08/24/25 09:04 Oxygen Delivery Room Air 08/24/25 09:04 Temperature 36.4 C L 08/24/25 09:04 Pulse Rate 64 08/24/25 09:04 Respiratory Rate 18 08/24/25 09:04 Blood Pressure 134/75 08/24/25 09:04 Pulse Oximetry 100 08/24/25 09:04 Oxygen Delivery Room Air 08/24/25 09:04 Reviewed MDM - URI/Sore Throat MDM Narrative Medical decision making narrative: Differential diagnosis considered: Leigh virus, strep pharyngitis, allergic rhinitis, upper respiratory tract infection, sinusitis, rhinosinusitis, nasopharyngitis. viral pharyngitis, otitis media, otitis externa, pneumonia, bronchitis, viral cough syndrome, viral syndrome, and influenza.? Exam findings show no acute concerns or changes; patient is non-toxic appearing and is in no distress.? Patient is appropriate for outpatient treatment and follow-up. Differential Diagnosis Differential diagnosis: Likely upper respiratory infection, otitis media, sinusitis, viral infection, pharyngitis and other (strep pharyngitis) Medical Records Attestation: I reviewed the patient's medical records. Lab Data Attestation: I reviewed the patient's lab results. Lab results narrative: strep screen negative, culture sent Labs: Lab Results 08/24/25 Range/Units 09:21 POC Grp A Strep Screen Negative (Negative) reviewed Critical Care Time Critical Care Time Critical Care Time: No Discharge Plan Discharge Clinical Impression: Upper respiratory infection Qualifiers: URI type: unspecified URI Qualified Code(s): J06.9 - Acute upper respiratory infection, unspecified Patient Disposition: Home Condition: Stable Instructions: Upper Respiratory Infection (ED) Additional Instructions: Increase fluids especially juices and water Yfwh-ehb-bzprosh cough and cold medicine of your choice for your symptoms Zyrtec Claritin or Dolores daily per package instructions Steroids as directed--take with food Medrol Dosepak as prescribed heat to the face 20-30 minutes 4-6 times a day for pain Salt water gargles, throat lozenges or throat sprays as desired Your strep test today was negative. A throat culture will be sent to the laboratory for further testing. IF the test is positive, you will receive a phone call within 48 hours and an appropriate antibiotic will be initiated at that time. Flonase nasal spray take as prescribed If your symptoms persist, change or worsen significantly before you can contact your personal physician then please, without delay, go to the emergency department for further evaluation. Follow-up with PCP in 7-10 days or sooner if needed Follow up with PCP soon in regards to your blood pressure which is elevated above threshold for referral. Blood pressure above 120/80 may indicate pre- hypertension. 134/75 Patient Language: Nepalese Prescriptions: New Flonase Sensimist 27.5 mcg/actuation spray,suspension 1 spray intranasal DAILY Qty: 9.1 0RF Rx Instructions: into each nostril methylprednisolone [Medrol (Levi)] 4 mg tablets,dose pack See Rx Instructions .ROUTE .COMPLEX Qty: 21 0RF Rx Instructions: orally per package directions No Action atorvastatin 40 mg tablet famotidine 40 mg tablet norelgestromin-ethin.estradiol [Xulane] 150-35 mcg/24 hr patch weekly cholecalciferol (vitamin D3) 250 mcg (10,000 unit) capsule Follow-up/Referrals: Sammy,MD Nemesio [Primary Care Provider] Stand Alone Forms: Work/School Release IP Time of Disposition: 09:37 Quality [place] Coma Scale Eyes: Open Verbal: Oriented and Alert Motor: Follows Commands [place] Coma Total Score: 15
[2025-08-24 09:23] LABS: EDSTREPNEGPOS1 Negative (Negative)
--- OUTSIDE RECORDS SUMMARY | 2025-08-24 09:48 | XMS_ITS ---
Author Organization [facility] Address [address] [place] [address] Care Team Providers Care Earthmoving Labourer Name Role Phone Colby Diaz MD Unavailable [phone] Teresa Degroot NP Unavailable [phone] Suzanne Dudley CARPET REPAIRER Unavailable [phone] Deandra Sorto MD Unavailable [phone] Nemesio Christianson MD Primary Care Provider [phone] Active Problems Problem Noted Date Diagnosed Date DUB (dysfunctional uterine bleeding) 02/04/2025 Overview (06/02/2025): Didn't tolerate metformin- diarrhea Assessment & Plan (06/02/2025 10:23 AM CDT): Options discussed Will try to regulate her cycles with the patch Will see how this affects her cycle, pinto and pain. Well woman exam 02/04/2025 Assessment & Plan (06/02/2025 10:08 AM CDT): Due in February 13 for complete exam Assessment & Plan (02/04/2025 3:11 PM CDT): Pap done. RTO 12m. I will send the results to the portal. If she has not heard in a week, to call the office. Left lower quadrant pain 11/22/2023 Assessment & Plan (11/22/2023 12:36 PM TRAFFIC SIGN SUPERVISOR): This is possibly a trigger point and we discussed icing b.i.d. To ultrasound to rule out intra-abdominal pathology She will follow-up with Teresa at her January 15 scheduled appointment. High grade squamous intraepi thelial lesion (HGSIL), grade 3 JORDYN, on biopsy of cervix 05/31/2023 Overview (06/02/2025): 09/23/23- JORDYN 3 with positive margins at 6-9 oclock. 12/2023- ascus 06/2024- wnl 01/2025- pap repeated- wnl Assessment & Plan (06/02/2025 10:09 AM CDT): Due for repeat in Aug 14 Assessment & Plan (02/04/2025 3:08 PM CDT): Pap ws repeated today Assessment & Plan (11/22/2023 12:36 PM TRAFFIC SIGN SUPERVISOR): The cervix is healing well The friable part was treated with silver nitrate Will see if this happens again Assessment & Plan (10/03/2023 3:17 PM TRAFFIC SIGN SUPERVISOR): Results reviewed She voices understanding Will plan to repeat pap q 4 months for the first year Then q 6m for the year after that. Assessment & Plan (09/16/2023 2:16 PM TRAFFIC SIGN SUPERVISOR): Will proceed as planned. Assessment & Plan (07/20/2023 11:59 AM CDT): Results reviewed To [facility] Procedure reviewed along with risk, [...] --> [place] [address] [place] units daily on prior visit which is what she is doing now - recheck lab, order placed Lab Results Component Value Date 25HYDROVITD 17 (L) 12/11/2023 25HYDROVITD 19 (L) 04/10/2023 25HYDROVITD 25 (L) 08/01/2022 25HYDROVITD 33 04/19/2021 25HYDROVITD 18 (L) 08/25/2020 Assessment & Plan (12/12/2023 5:05 AM TRAFFIC SIGN SUPERVISOR): - chronic, not well controlled - [...] -continue on vitamin D3 5000 units daily Dyslipidemia 10/05/2022 Assessment & Plan (08/17/2024 11:48 [...] 08/01/2022 Assessment & Plan (12/12/2023 5:07 AM TRAFFIC SIGN SUPERVISOR): - chronic condition, not at goal, [...] scheduled Assessment & Plan (10/05/2022 11:45 AM TRAFFIC SIGN SUPERVISOR): - chronic condition, not at goal [...] management Assessment & Plan (10/05/2022 11:34 AM TRAFFIC SIGN SUPERVISOR): - chronic,controlled - currently on Hydroxyzine 25 mg 1/2 tablet at night as needed only - continue management Atypical chest pain 10/05/2022 Assessment & Plan (09/11/2024 8:14 AM TRAFFIC SIGN SUPERVISOR): - atypical chest pain, recurring condition, [...] valve. Assessment & Plan (09/09/2023 10:37 AM TRAFFIC SIGN SUPERVISOR): - atypical chest pain, less frequent [...] valve. Assessment & Plan (10/05/2022 1:47 PM TRAFFIC SIGN SUPERVISOR): - atypical chest pain - chronic [...] 12/11/2023 Assessment & Plan (12/11/2023 8:57 AM TRAFFIC SIGN SUPERVISOR): - chronic condition, better controlled - mixed symptoms of anxiety and depression - states it is getting better - currently on Lexapro 10 mg daily - continue current management with changes made above Lab Results Component Value Date TSH 2.43 04/10/2023 Assessment & Plan (09/09/2023 8:57 AM TRAFFIC SIGN SUPERVISOR): - chronic condition, not well controlled [...] 04/10/2023 Assessment & Plan (10/05/2022 11:34 AM TRAFFIC SIGN SUPERVISOR): - chronic condition, controlled with persistent [...] 07/09/2022 Assessment & Plan (09/11/2024 7:57 AM TRAFFIC SIGN SUPERVISOR): - chronic condition, controlled/stable - mixed [...] 12/11/2023 Assessment & Plan (12/11/2023 9:00 AM TRAFFIC SIGN SUPERVISOR): - chronic condition, better controlled - mixed symptoms of anxiety and depression - states it is getting better - currently on Lexapro 10 mg daily - continue current management Lab Results Component Value Date TSH 2.43 04/10/2023 Assessment & Plan (09/09/2023 8:57 AM TRAFFIC SIGN SUPERVISOR): - chronic condition, not well controlled [...] 04/10/2023 Assessment & Plan (10/05/2022 11:33 AM TRAFFIC SIGN SUPERVISOR): - chronic condition, controlled with persistent [...] 05/23/2022 Assessment & Plan (10/05/2022 11:35 AM TRAFFIC SIGN SUPERVISOR): - chronic, stable - follows with [...] the famotidine, start on omeprazole 20mg daily Assessment & Plan (06/02/2025 10:24 AM CDT): Elimination diet discussed To bentyl Dyspepsia 03/22/2022 Assessment & Plan (09/11/2024 8:15 AM TRAFFIC SIGN SUPERVISOR): - chronic condition with recurrence of [...] migrainosus, not intractable 08/25/2020 Assessment & Plan (06/02/2025 10:17 AM CDT): She states she does not have aura Neuro appt in September 14 Assessment & Plan (08/17/2024 11:53 AM CDT): [...] management Assessment & Plan (12/11/2023 9:00 AM TRAFFIC SIGN SUPERVISOR): - chronic, not well controlled - [...] management Assessment & Plan (09/09/2023 8:59 AM TRAFFIC SIGN SUPERVISOR): - chronic, not well controlled - [...] above Assessment & Plan (10/05/2022 11:38 AM TRAFFIC SIGN SUPERVISOR): - chronic, under control - very [...] or bologna; no MSG as found in czech food; no more than 1/2 banana a [...] visit Assessment & Plan (08/25/2020 11:19 AM TRAFFIC SIGN SUPERVISOR): HPI: Condition is worsening A&P: Discussed/ordered [...] hot dogs, no MSG as found in czech food, no more than 1/2 banana a day, no artificial sweeteners, fresh bread (less than 24 hours old); drink lots of water. Morbid obesity with BMI of 40.0-44.9, adult 11/0 02/2020 Assessment & Plan (08/17/2024 11:56 AM [...] loss Assessment & Plan (12/11/2023 8:55 AM TRAFFIC SIGN SUPERVISOR): Wt Readings from Last 3 Encounters: [...] increase to twice daily as recommended by DISPATCHER AUTOMOBILE [employer]ENT[employer]. Advised patient it may take longer to notice weight loss with this medication and this medication can be increased if needed. Assessment & Plan (10/05/2022 11:39 AM TRAFFIC SIGN SUPERVISOR): Wt Readings from Last 3 Encounters: [...] your mouth on an ana maría like Charge Payment Lower carb substitutions: Aldi carries a zero [...] in much longer they will become mushy [place] and/or coconut flour instead of regular flour [...] pork rinds For yogurt, try Two Good swiss yogurt Use Chance for recipe ideas. Type [...] your mouth on an ana maría like Charge Payment Lower carb substitutions: Aldi carries a zero [...] in much longer they will become mushy [place] and/or coconut flour instead of regular flour [...] pork rinds For yogurt, try Two Good swiss yogurt Use Pinterest for recipe ideas. Type [...] your mouth on an ana maría like Charge Payment Lower carb substitutions: Aldi carries a zero [...] in much longer they will become mushy [place] and/or coconut flour instead of regular flour [...] pork rinds For yogurt, try Two Good swiss yogurt Use Chance for recipe ideas. Type [...] your mouth on an ana maría like Charge Payment or Numote Aldi carries a zero net carb bread [...] in much longer they will become mushy [place] and/or coconut flour instead of regular flour [...] pork rinds For yogurt, try Two Good swiss yogurt Use Chance for recipe ideas. Type in low carb... Assessment & Plan (10/05/2021 3:30 PM TRAFFIC SIGN SUPERVISOR): HPI: Condition is not at/near goal goal BMI <30 A&P: Healthy, high-protein, lower carbohydrate, lower fat lifestyle and exercise for 150min/week recommended Substitutions: Recommend tracking everything you put in your mouth on an ana maría like Charge Payment or Fair valuei carries a zero net carb bread If [...] in much longer they will become mushy [place] and/or coconut flour instead of regular flour [...] pork rinds For yogurt, try Two Good swiss yogurt Use Pinterest for recipe ideas. Type in low carb... Assessment & Plan (04/19/2021 8:18 AM CDT): HPI: Condition is not at/near goal goal BMI <30 A&P: Healthy, high-protein, lower carbohydrate, lower fat lifestyle and exercise for 150min/week recommended Substitutions: Recommend tracking everything you put in your mouth on an ana maría like Charge Payment or Numote Aldi carries a zero net carb bread [...] in much longer they will become mushy [place] and/or coconut flour instead of regular flour [...] pork rinds For yogurt, try Two Good swiss yogurt Use [employer] for recipe ideas. Type in low carb... Assessment & Plan (12/28/2020 8:50 AM TRAFFIC SIGN SUPERVISOR): Healthy, low carbohydrate lifestyle and exercise [...] replacement For pasta, try using zucchini noodles [place] and/or coconut flour instead of regular flour For pizza dough, try fathead pizza dough recipe online chaffles recipe online For ice cream, try the brand Enlightened Use Pinterest for recipe ideas. Type in low carb... Assessment & Plan (08/25/2020 11:21 AM TRAFFIC SIGN SUPERVISOR): HPI: Condition is stable A&P: Healthy, [...] in much longer they will become mushy [place] and/or coconut flour instead of regular flour [...] Problem Noted Date Diagnosed Date Resolved Date History of irregular menstrual cycles 11/09/2022 06/02/2025 Assessment & Plan (05/31/2023 12:24 PM CDT): Options including Progestin only pill, IUD, Nexplanon, or cycling provera discussed again. Weight loss also encouraged. She would like to try a daily progestin only pill. Assessment & Plan (11/09/2022 12:11 PM TRAFFIC SIGN SUPERVISOR): Discussed irregular cycles and PCOS in depth. We will plan for PCOS labs and pelvic ultrasound. Discussed that depending on results we can discuss possibly cycling Prove as she is uninterested in a daily hormonal method at this time. Irregular bowel habits 03/22/202210/05 Assessment & Plan [...]
--- OUTSIDE RECORDS SUMMARY | 2025-08-24 09:48 | XMS_ITS | Encounter Summary ---
Author Organization [facility] Healthcare Address [address] [place] [address] Care Team Providers Care Lock Assembler Name Role Phone Iftikhar Yolanda SHEMAR Primary Care Provider [phone] Colby Diaz MD Unavailable [phone] Michael Thakkar MD Primary Care Provider Teresa Degroot NP Unavailable [phone] Suzanne Dudley MUTUAL FUND ANALYST Unavailable [phone] Deandra Sorto MD Unavailable [phone] Nemesio Christianson MD Primary Care Provider [phone] Encounter Details Date Type Department Care Team (Late st Contact Info) Description 02/06/2021 Telephone [facility] [address] [place] [address] Don John, Social History Tobacco Use Types [...] on file Legal Sex Female 4:14 AM SPEECH PATHOLOGIST ASSISTANT Gender Identity Female 01/26/2021 10:41 PM CDT Sexual Orientation Bisexual 01/26/2021 10 :41 PM CDT documented as of this encounter Plan of Treatment Not on file documented as of this encounter Visit Diagnoses Not on filedocumented in this encounter Additional Health Concerns Infection Onset Date Last Indicated Resolved Time COVID: Suspected 10/10/2022 10/10/2022 10/10/2022 1:19 AM SPEECH PATHOLOGIST ASSISTANT Influenza, adult 10/10/2022 10/10/2022 10/17/2022 3:05 AM SPEECH PATHOLOGIST ASSISTANT COVID: Suspected 11/29/2022 11/29/2022 11/29/2022 11:21 AM SPEECH PATHOLOGIST ASSISTANT documented as of this encounter Care Teams Lock Assembler Relationship Specialty Start Date End Date Yolanda Buitrago NP PCP - General Family Medicine 08/25/20 10/04/22 Michael Thakkar MD PCP - General Family Medicine 10/05/22 12/13/24 Nemesio Christianson MD [address] [place] [address] [place] [address] PCP - General Internal Medicine 12/28/24 Colby Diaz MD Consulting Physician Gastroenterology 10/05/22 Teresa Degroot MUTUAL FUND ANALYST [address] [place] [address] [place] [address] Nurse Practitioner Obstetrics and Gynecology 04/16/23 Suzanne Dudley NP [address] [place] [address] [place] [address] Nurse Practitioner Family Medicine 04/16/23 Deandra Sorto MD [address] [place] [address] [place] [address] Consulting Physician Obstetrics and Gynecology 09/18/23 documented as of this encounter
--- OUTSIDE RECORDS SUMMARY | 2025-08-24 09:48 | XMS_ITS | Patient Health Record ---
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 Role Phone Nemesio Christianson MD Primary Care Provider Kay Watts Unavailable [phone] Allergies Allergen (clinical drug ingredient) Drug/Non Drug Allergy documented on EMR Reaction Allergy Type Onset Date Status Latex latex (uncoded) Unknown Allergy Acti ve rizatriptan Rizatriptan Unknown Drug Allergy Act arabella Results Component Value Reference Range Notes UDT Reviewed date:04/09/2025 03:11:55 PM Interpretation: Performing Lab: Notes/Report: Amphetamine (AMP) NEG 0 - 1000 ng/ml Buprenorphine (BUP) NEG 0 - 10 ng/ml Oxazepam (BZO) NEG 0 - 300 ng/ml Cocaine (SHERLY) NEG 0 - 300 ng/ml Methamphetamine (mAMP) NEG 0 - 300 ng/ml Methylenedioxymethamphetamine (MDMA) NEG 0 - 500 ng/ml Morphine (MOP) NEG 0 - 25 ng/ml Methadone (MTD) NEG 0 - 300 ng/ml Oxycodone (OXY) NEG 0 - 300 ng/ml THC NEG 0 - 50 ng/ml x NEG 0 - 1000 ng/ml x NEG 0 - 1000 ng/ml x NEG 0 - 300 ng/ml x NEG 0 - 300 ng/ml x NEG 0 - 300 ng/ml Reason For Referral No Information Medications Medication SIG (Take, Route, Frequency, Duration) Notes Start Date End Date Status Vitamin D3 250 MCG (43540 UT) Capsule TAKE 1 CAPSULE BY MOUTH DAILY Oral; Duration: 90 Days Active Albuterol Sulfate HFA 108 (90 Base) MCG/ACT Aerosol Solution INHALE 1 TO 2 PUFFS EVERY 4 TO 6 HOURS NEEDED FOR SHORTNESS OF BREATH AND WHEEZING Inhalation; Duration: 17 Days Active Famotidine 40 MG Tablet TAKE 1 TABLET BY MOUTH EVERY DAY Oral; Duration: 30 Days Z760,Unavailabl e Active Atorvastatin Calcium 40 MG Tablet TAKE 1 TABLET BY MOUTH EVERY DAY Oral; Duration: 90 Days Z760,Unavailabl e Active DULoxetine HCl 30 MG Capsule Delayed Release Particles 1 capsule Orally Once a day; Duration: 30 days 04/09/2025 Active Social History Tobacco Use: Social History Observation Description Date Details (start date - stop date) Never Smoker NA - NA Sex Assigned At : Social History Observation Description Sex Assigned At Female Social History Drug/Alcohol: Social Info Question Answer Notes Caffeine Intake: 1-2 cups per day not very of ten Tobacco Use: Social Info Question Answer Notes Tobacco Control (Standard) Tobacco use: Nonsmoker Additional Details Category Social Info Options Details Drug/Alcohol: Do you smoke marijuana? Den ies Do you drink alcohol? Yes, Socia lly Problems Problem Type SNOMED Code ICD Code Onset Dates Problem Status W/U Status Risk Notes Problem Generalized anxiety disorder (72560885) Generalized anxiety disorder (F41.1) Active confirmed Problem Primary insomnia (1739028) Primary insomnia (F51.01) Active confirmed Problem Depression Screening (027460645) Encounter for screening for depression (Z13.31) Active confirmed Problem Moderate recurrent major depression (48993501) MDD (major depressive disorder), recurrent episode, moderate (F33.1) Active confirmed Problem Panic disorder (179809099) Panic attacks (F41.0) Active confirmed Vital Signs Heart Rate 61 /min 04/09/2025 Respiratory Rate 16 /min 04/09/2025 Height-cm 160.02 cm 04/09/2025 Blood pressure diastolic 76 mm Hg 04/09/2025 Weight-kg 111.68 kg 04/09/2025 Height 63 in 04/09/2025 Blood pressure systolic 112 mm Hg 04/09/2025 Weight 246.2 lbs 04/09/2025 BMI 43.61 kg/m2 04/09/2025 Encounters Encounter Location Date Provider Diagnosis [facility] [place] [facility] [address] [address] 04/09/2025 Kay Taylor Encounter for screening for depression Z13.31 ; MDD (major depressive disorder), recurrent episode, moderate F33.1 ; Generalized anxiety disorder F41.1 ; Panic attacks F41.0 and Primary insomnia F51.01 Assessments Encounter Date Diagnosis (ICD Code) Assessment Notes Treatment Notes Treatment Clinical Notes Section Notes 04/09/2025 Encounter for screening for depression (ICD-10 - Z13.31) 1. Depression discuss and education on medication options therapy schedule - discuss OJ Add Cymbalta 30 mg daily 2. Anxiety Add Cymbalta 30 mg daily 3. Insomnia sleep hygeine 4. Panic Add Cymbalta 30 mg daily Patient educated on all medications including potential benefits, side effects, risks. Educated on proper dosing schedule and importance of compliance educated on all medications, benefits, side effects and risk, and educated on depression, anxiety, and ADHD, mood d/o and educated on compliance of medications, metabolic and movement d/o education appointment's, continue therapy discussion with patient about course of treatment and patient instructions. education on serotonin syndrome Discussed and educated pt regarding benzodiazepines are generally not intended for prolonged use and that use can cause tolerance, dependence, depression, and associated memory issues including dementias (this list is not exhaustive). Benzodiazepine use is generally not recommended concurrently with pain medications and/or other controlled substances educated on all medications, benefits, side effects and risk, and educated on depression, anxiety, and ADHD, mood d/o and educated on compliance of medications, metabolic and movement d/o education appointment is, continue therapy discussion with patient about course of treatment and patient instructions. education on serotonin syndrome SSRI/SNRI side effects discussed including but not limited to, gastric upset, nausea, vomiting, diarrhea and/or constipation, weight changes, sexual side effects including loss of libido, increased suicidal thoughts/behaviors in children and young adults, and serotonin syndrome. Medication Management and Follow-Up - Plan: - Schedule follow-up appointments every 1-3 months to monitor the patient's response to the medication regimen. - Reinforce the importance of avoiding recreational drug use due to potential neurotoxicity and interactions with prescribed medications. websites http_s://www.nimh. nih.gov/health/top ics/mental-health- medications http_s://www.melva. org/Poipz-Itmjrx-J llness/Treatments/ Qbcfcf-Apwqnn-Rokm cations http_s://www.melva. org/Qbgwk-Htfsxn-B llness/Mental-Heal th-Conditions http_s://psychcent AutekBio.com/depression /fvw-akzuzhvqk-mrj cxhcx-fa-maodsulxt n#treatments http__s://www.nimh .nih.gov/health/to pics/mental-health -medications http__s://www.melva .org/About-Mental- Illness/Treatments /Iyinfx-Zlzeat-Nsz ications http_s://cherry.nih. gov/publications/d rugfacts/cannabis- marijuana http_s://www.Akita/cannabi t-mrc-qggjjzan-mar ijuana-adhd/ 04/09/2025 MDD (major depressive disorder), recurrent episode, moderate (ICD-10 - F33.1) Preventing Depression From Coming Back: Care Instructions material was published, Learning About How to Get Help During a Mental Health Crisis material was published, Learning About Depression material was published, Learning About Depression Screening material was published 1. Depression discuss and education on medication options therapy schedule - discuss OJ Add Cymbalta 30 mg daily 2. Anxiety Add Cymbalta 30 mg daily 3. Insomnia sleep hygeine 4. Panic Add Cymbalta 30 mg daily Patient educated on all medications including potential benefits, side effects, risks. Educated on proper dosing schedule and importance of compliance educated on all medications, benefits, side effects and risk, and educated on depression, anxiety, and ADHD, mood d/o and educated on compliance of medications, metabolic and movement d/o education appointment's, continue therapy discussion with patient about course of treatment and patient instructions. education on serotonin syndrome Discussed and educated pt regarding benzodiazepines are generally not intended for prolonged use and that use can cause tolerance, dependence, depression, and associated memory issues including dementias (this list is not exhaustive). Benzodiazepine use is generally not recommended concurrently with pain medications and/or other controlled substances educated on all medications, benefits, side effects and risk, and educated on depression, anxiety, and ADHD, mood d/o and educated on compliance of medications, metabolic and movement d/o education appointment is, continue therapy discussion with patient about course of treatment and patient instructions. education on serotonin syndrome SSRI/SNRI side effects discussed including but not limited to, gastric upset, nausea, vomiting, diarrhea and/or constipation, weight changes, sexual side effects including loss of libido, increased suicidal thoughts/behaviors in children and young adults, and serotonin syndrome. Medication Management and Follow-Up - Plan: - Schedule follow-up appointments every 1-3 months to monitor the patient's response to the medication regimen. - Reinforce the importance of avoiding recreational drug use due to potential neurotoxicity and interactions with prescribed medications. websites http_s://www.nimh. nih.gov/health/top ics/mental-health- medications http_s://www.melva. org/Ppyda-Lfouxy-O llness/Treatments/ Igykdo-Lvyxrq-Kzel cations http_s://www.melva. org/Eeudx-Mmzqlu-Q llness/Mental-Heal th-Conditions http_s://Scil Proteins.Pinevent/depression /hbw-goybxwacb-hzy aqmhc-yr-sxeenikbb n#treatments http__s://www.nimh .nih.gov/health/to pics/mental-health -medications http__s://www.MitoProd .org/About-Mental- Illness/Treatments /Dblbup-Jvwuem-Cfi ications http_s://cherry.nih. gov/publications/d rugfacts/cannabis- marijuana http_s://www.Akita/cannabi o-ous-dcpkgujx-mar ijuana-adhd/ 04/09/2025 Generalized anxiety disorder (ICD-10 - F41.1) Generalized Anxiety Disorder: Care Instructions material was published, Learning About Generalized Anxiety Disorder material was published, Learning About Anxiety Disorders material was published 1. Depression discuss and education on medication options therapy schedule - discuss OJ Add Cymbalta 30 mg daily 2. Anxiety Add Cymbalta 30 mg daily 3. Insomnia sleep hygeine 4. Panic Add Cymbalta 30 mg daily Patient educated on all medications including potential benefits, side effects, risks. Educated on proper dosing schedule and importance of compliance educated on all medications, benefits, side effects and risk, and educated on depression, anxiety, and ADHD, mood d/o and educated on compliance of medications, metabolic and movement d/o education appointment's, continue therapy discussion with patient about course of treatment and patient instructions. education on serotonin syndrome Discussed and educated pt regarding benzodiazepines are generally not intended for prolonged use and that use can cause tolerance, dependence, depression, and associated memory issues including dementias (this list is not exhaustive). Benzodiazepine use is generally not recommended concurrently with pain medications and/or other controlled substances educated on all medications, benefits, side effects and risk, and educated on depression, anxiety, and ADHD, mood d/o and educated on compliance of medications, metabolic and movement d/o education appointment is, continue therapy discussion with patient about course of treatment and patient instructions. education on serotonin syndrome SSRI/SNRI side effects discussed including but not limited to, gastric upset, nausea, vomiting, diarrhea and/or constipation, weight changes, sexual side effects including loss of libido, increased suicidal thoughts/behaviors in children and young adults, and serotonin syndrome. Medication Management and Follow-Up - Plan: - Schedule follow-up appointments every 1-3 months to monitor the patient's response to the medication regimen. - Reinforce the importance of avoiding recreational drug use due to potential neurotoxicity and interactions with prescribed medications. websites http_s://www.nimh. nih.gov/health/top ics/mental-health- medications http_s://www.melva. org/Sbxfa-Xzquhk-J llness/Treatments/ Tblsez-Nxqjxg-Gqul cations http_s://www.melva. org/Qjapd-Jiequa-Q llness/Mental-Heal th-Conditions http_s://Browsercast.com/depression /ujx-jwztctzno-dtx oezox-kl-nkgfidaws n#treatments http__s://www.nimh .nih.gov/health/to pics/mental-health -medications http__s://www.melva .org/About-Mental- Illness/Treatments /Eopmqk-Scruzc-Ztw ications http_s://cherry.nih. gov/publications/d rugfacts/cannabis- marijuana http_s://www.Akita/cannabi l-ctd-snnhtjfo-mar ijuana-adhd/ 04/09/2025 Panic attacks (ICD-10 - F41.0) Panic Attacks: Care Instructions material was published 1. Depression discuss and education on medication options therapy schedule - discuss OJ Add Cymbalta 30 mg daily 2. Anxiety Add Cymbalta 30 mg daily 3. Insomnia sleep hygeine 4. Panic Add Cymbalta 30 mg daily Patient educated on all medications including potential benefits, side effects, risks. Educated on proper dosing schedule and importance of compliance educated on all medications, benefits, side effects and risk, and educated on depression, anxiety, and ADHD, mood d/o and educated on compliance of medications, metabolic and movement d/o education appointment's, continue therapy discussion with patient about course of treatment and patient instructions. education on serotonin syndrome Discussed and educated pt regarding benzodiazepines are generally not intended for prolonged use and that use can cause tolerance, dependence, depression, and associated memory issues including dementias (this list is not exhaustive). Benzodiazepine use is generally not recommended concurrently with pain medications and/or other controlled substances educated on all medications, benefits, side effects and risk, and educated on depression, anxiety, and ADHD, mood d/o and educated on compliance of medications, metabolic and movement d/o education appointment is, continue therapy discussion with patient about course of treatment and patient instructions. education on serotonin syndrome SSRI/SNRI side effects discussed including but not limited to, gastric upset, nausea, vomiting, diarrhea and/or constipation, weight changes, sexual side effects including loss of libido, increased suicidal thoughts/behaviors in children and young adults, and serotonin syndrome. Medication Management and Follow-Up - Plan: - Schedule follow-up appointments every 1-3 months to monitor the patient's response to the medication regimen. - Reinforce the importance of avoiding recreational drug use due to potential neurotoxicity and interactions with prescribed medications. websites http_s://www.nimh. nih.gov/health/top ics/mental-health- medications http_s://www.melva. org/Kdwaj-Yndogj-L llness/Treatments/ Bwsftq-Tebebm-Lqzj cations http_s://www.melva. org/Sdiln-Swoteh-J llness/Mental-Heal th-Conditions http_s://psychcent AutekBio.com/depression /jky-tdwkksbfk-tsw puxlm-ir-yonmdewym n#treatments http__s://www.nimh .nih.gov/health/to pics/mental-health -medications http__s://www.melva .org/About-Mental- Illness/Treatments /Qbqcuw-Aonzdd-Thg ications http_s://cherry.nih. gov/publications/d rugfacts/cannabis- marijuana http_s://www.Akita/cannabi a-eox-labagdik-mar ijuana-adhd/ 04/09/2025 Primary insomnia (ICD-10 - F51.01) Insomnia: Care Instructions material was published, Learning About Sleeping Well material was published 1. Depression discuss and education on medication options therapy schedule - discuss OJ Add Cymbalta 30 mg daily 2. Anxiety Add Cymbalta 30 mg daily 3. Insomnia sleep hygeine 4. Panic Add Cymbalta 30 mg daily Patient educated on all medications including potential benefits, side effects, risks. Educated on proper dosing schedule and importance of compliance educated on all medications, benefits, side effects and risk, and educated on depression, anxiety, and ADHD, mood d/o and educated on compliance of medications, metabolic and movement d/o education appointment's, continue therapy discussion with patient about course of treatment and patient instructions. education on serotonin syndrome Discussed and educated pt regarding benzodiazepines are generally not intended for prolonged use and that use can cause tolerance, dependence, depression, and associated memory issues including dementias (this list is not exhaustive). Benzodiazepine use is generally not recommended concurrently with pain medications and/or other controlled substances educated on all medications, benefits, side effects and risk, and educated on depression, anxiety, and ADHD, mood d/o and educated on compliance of medications, metabolic and movement d/o education appointment is, continue therapy discussion with patient about course of treatment and patient instructions. education on serotonin syndrome SSRI/SNRI side effects discussed including but not limited to, gastric upset, nausea, vomiting, diarrhea and/or constipation, weight changes, sexual side effects including loss of libido, increased suicidal thoughts/behaviors in children and young adults, and serotonin syndrome. Medication Management and Follow-Up - Plan: - Schedule follow-up appointments every 1-3 months to monitor the patient's response to the medication regimen. - Reinforce the importance of avoiding recreational drug use due to potential neurotoxicity and interactions with prescribed medications. websites http_s://www.nimh. nih.gov/health/top ics/mental-health- medications http_s://www.melva. org/Dtuhp-Mtgoue-B llness/Treatments/ Ndvips-Obqxec-Ccmf cations http_s://www.melva. org/Wlewy-Tejkfa-M llness/Mental-Heal th-Conditions http_s://psychcent AutekBio.com/depression /iqm-ytubuprvq-yxp peuyz-fx-gnhgkvvrv n#treatments http__s://www.nimh .nih.gov/health/to pics/mental-health -medications http__s://www.melva .org/About-Mental- Illness/Treatments /Uncovz-Iyjisn-Fzz ications http_s://cherry.nih. gov/publications/d rugfacts/cannabis- marijuana http_s://www.Akita/cannabi x-vzr-fpocvjwp-mar ijuana-adhd/ 04/09/2025 Other Learning About Depression Screening material was printed, Duloxetine material was published 1. Depression discuss and education on medication options therapy schedule - discuss OJ Add Cymbalta 30 mg daily 2. Anxiety Add Cymbalta 30 mg daily 3. Insomnia sleep hygeine 4. Panic Add Cymbalta 30 mg daily Patient educated on all medications including potential benefits, side effects, risks. Educated on proper dosing schedule and importance of compliance educated on all medications, benefits, side effects and risk, and educated on depression, anxiety, and ADHD, mood d/o and educated on compliance of medications, metabolic and movement d/o education appointment's, continue therapy discussion with patient about course of treatment and patient instructions. education on serotonin syndrome Discussed and educated pt regarding benzodiazepines are generally not intended for prolonged use and that use can cause tolerance, dependence, depression, and associated memory issues including dementias (this list is not exhaustive). Benzodiazepine use is generally not recommended concurrently with pain medications and/or other controlled substances educated on all medications, benefits, side effects and risk, and educated on depression, anxiety, and ADHD, mood d/o and educated on compliance of medications, metabolic and movement d/o education appointment is, continue therapy discussion with patient about course of treatment and patient instructions. education on serotonin syndrome SSRI/SNRI side effects discussed including but not limited to, gastric upset, nausea, vomiting, diarrhea and/or constipation, weight changes, sexual side effects including loss of libido, increased suicidal thoughts/behaviors in children and young adults, and serotonin syndrome. Medication Management and Follow-Up - Plan: - Schedule follow-up appointments every 1-3 months to monitor the patient's response to the medication regimen. - Reinforce the importance of avoiding recreational drug use due to potential neurotoxicity and interactions with prescribed medications. websites http_s://www.nimh. nih.gov/health/top ics/mental-health- medications http_s://www.melva. org/Kfpzz-Wnfald-M llness/Treatments/ Hanhpy-Ieutmg-Ekdt cations http_s://www.melva. org/Etlle-Pwayeg-L llness/Mental-Heal th-Conditions http_s://psychKeyhole.co.com/depression /cco-axucsxolc-kzf eafps-nc-pyoxryvqb n#treatments http__s://www.nimh .nih.gov/health/to pics/mental-health -medications http__s://www.melva .org/About-Mental- Illness/Treatments /Iykgvc-Pjtthd-Tkc ications http_s://cherry.nih. gov/publications/d rugfacts/cannabis- marijuana http_s://www.Akita/cannabi s-ile-xxswbuoj-mar ijuana-adhd/ Plan Of Treatment No Information Insurance Providers Payer Name Payer Address Payer Phone Subscriber Number Group Number Insured Name Patient Relationship to Insured Coverage Start Date Coverage End Date [employer] [address] [place] [phone] [id number] Ceci White Self - patient is the insured Medical (General) History Medical History History ICD Code Past Psychiatric History: Anxiety Disord er abdominal aortic aneurysm: No atrial fibrillation: No chronic fatigue syndrome: No essential tremor: No hyperlipidemia: yes hypertension: No Parkinson's disease: No restless leg syndrome: No stroke: No subdural hematoma: No type 1 diabetes mellitus: No type 2 diabetes mellitus: No vitamin B12 deficiency: No vitamin D deficiency: Yes GERD sciatic Surgical History Surgery Date(Month/Year) [facility] 5th digit sew back together in childhood rt hand
--- OUTSIDE RECORDS SUMMARY | 2025-08-24 09:48 | XMS_ITS | Clinical Summary ---
Author Organization [facility] Address [address] [place] [address] Care Team Providers Care Websphere Administrator Name Role Phone Colby Diaz MD Unavailable [phone] Teresa Degroot NP Unavailable [phone] Suzanne Dudley DIRECT SUPPORT PROFESSIONAL HOME HEALTH Unavailable Deandra Sorto MD Unavailable [phone] Nemesio Christianson MD Primary Care Provider [phone] Allergies Active Allergy Reactions Criticality Noted Date Comments Latex Hives,Itching Medium 09/18/2023 Rizatriptan Fever Medium 12/11/2023 Medications multivitamin with minerals tablet Take 1 tablet by mouth daily Active valACYclovir (VALTREX) 1 gram tablet Take [...] 3 3 Active atorvastatin (LIPITOR) 40 mg tabletIndications :Dyslipidemia Take 1 tablet (40 mg total) by mouth daily 90 tablet 3 4 Active famotidine (PEPCID) 40 mg tabletIndications :Dyspepsia Take 1 tablet (40 mg total) by mouth 2 (two) times a day for 14 days, THEN 1 tablet (40 mg total) nightly. 120 tablet 4 Active cholecalciferol (VITAMIN D-3) 18256 unit capsuleIndication s:Vitamin D deficiency TAKE 1 CAPSULE BY MOUTH DAILY 90 capsule 1 5 Active phentermine (ADIPEX-P) 37.5 mg tablet Take 1 tablet (37.5 mg total) by mouth daily 5 Active norelgestromin-et hin.estradioL (ORTHO EVRA) 150-35 mcg/24 hrIndications:Pre gnancy Contraception Apply 1 patch each week for 3 weeks, then remove for 1 week. 3 patch 12 5 06/02/20 Active Active Problems Problem Noted Date Diagnosed Date DUB (dysfunctional uterine bleeding) 02/04/2025 Overview (06/02/2025): Didn't tolerate metformin- diarrhea Assessment & Plan (06/02/2025 10:23 AM CDT): Options discussed Will try to regulate her cycles with the patch Will see how this affects her cycle, pinon and pain. Well woman exam 02/04/2025 Assessment & Plan (06/02/2025 10:08 AM CDT): Due in February 13 for complete exam Assessment & Plan (02/04/2025 3:11 PM CDT): Pap done. RTO 12m. I will send the results to the portal. If she has not heard in a week, to call the office. Left lower quadrant pain 11/22/2023 Assessment & Plan (11/22/2023 12:36 PM DRIER): This is possibly a trigger point and [...] today Assessment & Plan (11/22/2023 12:36 PM DRIER): The cervix is healing well The friable part was treated with silver nitrate Will see if this happens again Assessment & Plan (10/03/2023 3:17 PM DRIER): Results reviewed She voices understanding Will plan to repeat pap q 4 months for the first year Then q 6m for the year after that. Assessment & Plan (09/16/2023 2:16 PM DRIER): Will proceed as planned. Assessment & Plan (07/20/2023 11:59 AM CDT): Results reviewed To [facility] Procedure reviewed along with risk, benefits and [...] --> [place] [address] [place] units daily on prior visit which is what she is doing now - recheck lab, order placed Lab Results Component Value Date 25HYDROVITD 17 (L) 12/11/2023 25HYDROVITD 19 (L) 04/10/2023 25HYDROVITD 25 (L) 08/01/2022 25HYDROVITD 33 04/19/2021 25HYDROVITD 18 (L) 08/25/2020 Assessment & Plan (12/12/2023 5:05 AM DRIER): - chronic, not well controlled - worse [...] 08/01/2022 Assessment & Plan (12/12/2023 5:07 AM DRIER): - chronic condition, not at goal, worse [...] scheduled Assessment & Plan (10/05/2022 11:45 AM DRIER): - chronic condition, not at goal - [...] management Assessment & Plan (10/05/2022 11:34 AM DRIER): - chronic,controlled - currently on Hydroxyzine 25 mg 1/2 tablet at night as needed only - continue management Atypical chest pain 10/05/2022 Assessment & Plan (09/11/2024 8:14 AM DRIER): - atypical chest pain, recurring condition, recently [...] valve. Assessment & Plan (09/09/2023 10:37 AM DRIER): - atypical chest pain, less frequent - [...] valve. Assessment & Plan (10/05/2022 1:47 PM DRIER): - atypical chest pain - chronic in [...] 12/11/2023 Assessment & Plan (12/11/2023 8:57 AM DRIER): - chronic condition, better controlled - mixed symptoms of anxiety and depression - states it is getting better - currently on Lexapro 10 mg daily - continue current management with changes made above Lab Results Component Value Date TSH 2.43 04/10/2023 Assessment & Plan (09/09/2023 8:57 AM DRIER): - chronic condition, not well controlled with [...] 04/10/2023 Assessment & Plan (10/05/2022 11:34 AM DRIER): - chronic condition, controlled with persistent symptoms [...] 07/09/2022 Assessment & Plan (09/11/2024 7:57 AM DRIER): - chronic condition, controlled/stable - mixed symptoms [...] 12/11/2023 Assessment & Plan (12/11/2023 9:00 AM DRIER): - chronic condition, better controlled - mixed symptoms of anxiety and depression - states it is getting better - currently on Lexapro 10 mg daily - continue current management Lab Results Component Value Date TSH 2.43 04/10/2023 Assessment & Plan (09/09/2023 8:57 AM DRIER): - chronic condition, not well controlled with [...] 04/10/2023 Assessment & Plan (10/05/2022 11:33 AM DRIER): - chronic condition, controlled with persistent symptoms [...] 05/23/2022 Assessment & Plan (10/05/2022 11:35 AM DRIER): - chronic, stable - follows with GI [...] 03/22/2022 Assessment & Plan (09/11/2024 8:15 AM DRIER): - chronic condition with recurrence of symptoms [...] on meds mid to late May until Come off of meds if possible during [...] management Assessment & Plan (12/11/2023 9:00 AM DRIER): - chronic, not well controlled - without [...] management Assessment & Plan (09/09/2023 8:59 AM DRIER): - chronic, not well controlled - without [...] above Assessment & Plan (10/05/2022 11:38 AM DRIER): - chronic, under control - very infrequent [...] or bologna; no MSG as found in colombian food; no more than 1/2 banana a [...] improving, may need preventive medication, bring in PINON diary to f/u visit Assessment & Plan (08/25/2020 11:19 AM DRIER): HPI: Condition is worsening A&P: Discussed/ordered labs, [...] hot dogs, no MSG as found in colombian food, no more than 1/2 banana a [...] loss Assessment & Plan (12/11/2023 8:55 AM DRIER): Wt Readings from Last 3 Encounters: 12/11/23 [...] increase to twice daily as recommended by BODY ROLLING MACHINE TENDER. Advised patient it may take longer to notice weight loss with this medication and this medication can be increased if needed. Assessment & Plan (10/05/2022 11:39 AM DRIER): Wt Readings from Last 3 Encounters: 10/05/22 [...] your mouth on an ana maría like [employer] Lower carb substitutions: Aldi carries a zero [...] in much longer they will become mushy [place] and/or coconut flour instead of regular flour [...] pork rinds For yogurt, try Two Good cuban yogurt Use [employer] for recipe ideas. Type in low carb... [...] your mouth on an ana maría like GreenLancer Lower carb substitutions: Aldi carries a zero [...] in much longer they will become mushy [place] and/or coconut flour instead of regular flour [...] pork rinds For yogurt, try Two Good cuban yogurt Use Chance for recipe ideas. Type [...] your mouth on an ana maría like GreenLancer Lower carb substitutions: Aldi carries a zero [...] in much longer they will become mushy [place] and/or coconut flour instead of regular flour [...] pork rinds For yogurt, try Two Good cuban yogurt Use Pinterest for recipe ideas. Type [...] your mouth on an ana maría like GreenLancer or [employer] carries a zero net carb bread If [...] in much longer they will become mushy [place] and/or coconut flour instead of regular flour [...] pork rinds For yogurt, try Two Good cuban yogurt Use Pinterest for recipe ideas. Type in low carb... Assessment & Plan (10/05/2021 3:30 PM DRIER): HPI: Condition is not at/near goal goal BMI <30 A&P: Healthy, high-protein, lower carbohydrate, lower fat lifestyle and exercise for 150min/week recommended Substitutions: Recommend tracking everything you put in your mouth on an ana maría like GreenLancer or Nurix Aldi carries a zero net carb bread [...] in much longer they will become mushy [place] and/or coconut flour instead of regular flour [...] pork rinds For yogurt, try Two Good cuban yogurt Use [employer] for recipe ideas. Type in low carb... Assessment & Plan (04/19/2021 8:18 AM CDT): HPI: Condition is not at/near goal goal BMI <30 A&P: Healthy, high-protein, lower carbohydrate, lower fat lifestyle and exercise for 150min/week recommended Substitutions: Recommend tracking everything you put in your mouth on an ana maría like GreenLancer or Nurix Aldi carries a zero net carb bread [...] in much longer they will become mushy [place] and/or coconut flour instead of regular flour [...] pork rinds For yogurt, try Two Good cuban yogurt Use Pinterest for recipe ideas. Type in low carb... Assessment & Plan (12/28/2020 8:50 AM DRIER): Healthy, low carbohydrate lifestyle and exercise for [...] replacement For pasta, try using zucchini noodles [place] and/or coconut flour instead of regular flour For pizza dough, try fathead pizza dough recipe online chaffles recipe online For ice cream, try the brand Enljessened Use Pinterest for recipe ideas. Type in low carb... Assessment & Plan (08/25/2020 11:21 AM DRIER): HPI: Condition is stable A&P: Healthy, low [...] in much longer they will become mushy [place] and/or coconut flour instead of regular flour [...] pill. Assessment & Plan (11/09/2022 12:11 PM DRIER): Discussed irregular cycles and PCOS in depth. [...] Encounters Date Type Department Care Team Description 06/02/2025 9:30 AM CDT Office Visit Jack Higuera [address] [place] [address] [address] [place] [address] Deandra Sorto MD DUB (dysfunctional uterine bleeding) (Primary Dx); Abdominal pain; High grade squamous intraepithelial lesion (HGSIL), grade 3 JORDYN, on biopsy of cervix; Well woman exam; Migraine with aura and without status migrainosus, not intractable 05/24/2025 2:00 PM CDT Ancillary Procedure Jack Higuera [address] [place] [address] [address] [place] [address] Dysfunctional uterine bleeding from Last 3 Months Immunizations Immunization Administration [...] Desmond Hypertension Father Desmond Kidney disease Father [place] Pancreatitis Father Desmond No Known Problems Half-Brother [...] Cynthia Other cancer Neg Hx no breast, plodding operator, or colon cancers sng 01/28/25 Relation Name [...] on file Legal Sex Female 4:14 AM DRIER Gender Identity Female 01/26/2021 10:41 PM CDT Sexual Orientation Bisexual 01/26/2021 10 :41 PM CDT Obstetrics History Para Term AB IAB SAB Ectopic Multiple Livin g Live Births 1 1 1 1 1 Date Outcome GA Total Labor Labor//3rd Weight Sex Type Anes PTL Marcia A1 A5 Name Clin 6 Term 2.92 kg (6 lb 7 oz) F Vag-S pont Living Last Filed Vital Signs Vital Sign Reading Time Taken Comments Blood Pressure 112/76 06/02/2025 9:44 AM CDT Pulse 64 12/28/2024 4:26 AM CDT Temperature 36.2 C (97.2 F) 12/28/2024 2:16 AM CDT Respiratory Rate 18 12/28/2024 2:16 AM CDT Oxygen Saturation 100% 12/28/2024 4:26 AM CDT Inhaled Oxygen Concentration - - Weight 111.6 kg (246 lb) 01/28/2025 2:30 PM CDT Height 160 cm (5' 3) 12/28/2024 2:16 AM CDT Body Mass Index 43.58 12/28/2024 2:16 AM CDT Plan of Treatment Health Maintenance Due Date Last Done Comments Hepatitis B Screening 2014 Covid-19 Vaccine ( season) 2025 09/16/2022, 08/17/2022 Influenza Vaccine (#1) 2025 4, 08/26/2023, 07/09/2022, Additional history exists Cervical Cancer Screening 01/28/20262024, 07/20/2024, 01/16/2024, Additional history exists Depression Screening 01/28/2026 01/28/2025, 09/11/2024, 08/17/2024, Additional history exists Regular Well Visit/Exam 18-64 01/28/2026 01/28/2025, 01/16/2024, 01/24/2023, Additional history exists DTaP/Tdap/Td Vaccine (5 - Td or Tdap) 05/23/2033 05/23/2023, 07/26/2016, 04/03/2001, Additional history exists Varicella Vaccines Discontinued 07/19/1999 Hepatitis C Screening Completed 08/13/2024 , 08/01/2022, 05/01/2022, Additional history exists HPV Vaccines Discontinued Pneumococcal vaccine <65 Aged Out No longer eligible based on patient's age to complete this topic Procedures Procedure Name Priority Date/Time Associated Diagnosis Comments US PELVIS W ENDOVAGINAL Routine 05/24/2025 2:27 PM CDT Dysfunctional uterine bleeding PAP, REFLEX HPV Routine 01/28/2025 3:25 PM CDT High grade squamous intraepithelial lesion (HGSIL), grade 3 JORDYN, on biopsy of cervix HEPATITIS C ANTIBODY Routine 08/13/2024 10:20 AM CDT Need for hepatitis C screening test from Last 3 Months or Most Recently Relevant to Health Maintenance Results * US Pelvis W Endovaginal (05/24/2025 2:27 PM CDT) Cul de Sac No free fluid visualized VIEWPOINT Endometrial Thickness 3.3 mm&millim eters VIEWPOINT Anatomical Region Laterality Modality Pelvis N/A Ultrasound 05/24/2025 2:34 PM CDT Impressions 05/31/2025 1:09 PM CDT Normal pelvic ultrasound Narrative Procedure Note Deandra Sorto MD - 05/31/2025 IMPRESSION: Normal pelvic ultrasound us Deandra Sorto MD IMG US PROCEDURES F inal Result * Pap, reflex HPV (01/28/2025 3:25 PM CDT) CLINICAL INFORMATION: Dyllan BluntMalik Lama Comment:WELL WOMEN LMP Dyllan BluntRickeyAntolin alvarez Kelby Comment:01/10/2025 Previous Pap Dyllan SaranyaAntolin kim Lama Comment:NONE GIVEN Prev. Bx Dyllan Jose RaulMalik Lama Comment:NONE GIVEN SOURCE: Dyllan Jose RaulMalik Lama Comment:Cervix, Endocervix Pap, specimen adequacy Dyllan BluntRickeyAntolin kim Lama Comment: Satisfactory for evaluation. Endocervical/transformation zone component absent. HPV interp Dyllan BluntMalik Lama Comment: Cytology Results: Negative for intraepithelial lesion or malignancy. COMMENTS Dyllan BluntRickeyAntolin kim Lama Comment: This Pap test has been evaluated with computer assisted technology. Medicaid Billing Clerk Martin Quinn Comment: HUANF, CT(ASCP) CT Screening Location: [place] [address] Administration MIKAL Draper [id number] Review grain distributor Dyllan Lama Comment: KMS, CT(ASCP) CT Screening location: [place] [address] Administration MIKAL Draper [address] Comment Dyllan Lama Comment: EXPLANATORY NOTE: The [...] MD LAB CYTOLOGY ORDERA BLES Final Result [facility] Dyllan LP33.TVCarmen Lama [facility] Administration MIKAL Read [id number] * Hepatitis C antibody Blood (08/13/2024 10:20 [...] last revised on 2020. Testing performed by: [facility], [address] [place] [address], [place]., [address] Blood 08/13/2024 10:2 0 AM CDT 08/13/2024 3:53 PM CDT Michael Thakkar MD LAB MICROBIOLOGY - [facility] ORDERABLES Final Result [facility] Department [place] [address] from Last 3 Months or Most Recently Relevant to Health Maintenance Insurance [facility]AR [facility] Advance Directives For more information, please contact: [phone] * Full Code (Latest Code Status on File) Date Activated Date Inactivated Comments 03/27/2022 11:36 AM 03/27/2022 6:30 PM Care Teams Websphere Administrator Relationship Specialty Start Date End Date Nemesio Christianson MD [address] [place] [address] DR MARTINEZ [address] [place] [address] PCP - General Internal Medicine 12/28/24 Colby Diaz MD Consulting Physician Gastroenterology 10/05/22 Teresa Degroot NP [address] [place] [address] [place] [address] Nurse Practitioner Obstetrics and Gynecology 04/16/23 Suzanne Dudley NP [address] [place] [address] [place] [address] Nurse Practitioner Family Medicine 04/16/23 Deandra Sorto MD [address] [facility] [address] MARTINEZ [address] [place] [address] Consulting Physician Obstetrics and Gynecology 09/18/23
--- OUTSIDE RECORDS SUMMARY | 2025-08-24 09:48 | XMS_ITS | Clinical Summary ---
Author Organization [facility] Address [address] [place] [address] Care Team Providers Care Housekeeping/Laundry Name Role Phone Michael Thakkar MD Primary [...] 12:18 PM CDT Height 157.5 cm (5' 2) 08/21/2023 12:18 PM CDT Body Mass Index 45.73 08/21/2023 12:18 PM CDT Plan of Treatment Health Maintenance Due Date Last Done Comments Cervical Cancer Screening Pap Smear (Age 21 to 29) Every 3 Years 1996 Cervical Cancer Screening 1996 Annual Physical 1999 Hepatitis C 2014 Hepatitis B Vaccines (1 of 3 - 19+ 3-dose series) 2015 HPV Vaccines (1 - 3-dose SCDM series) 2023 COVID-19 Vaccine ( season) 2025 08/17/2022 Influenza Adult (#1) 2025 07/09/2022, 10/05/2021, 08/25/2020, Additional history exists DTaP, Tdap and Td Vaccines (5 - Td or Tdap) 05/23/2033 05/23/2023, 07/26/2016, 04/03/2001, Additional history exists Hepatitis A Vaccines Aged Out No long er eligible based on patient's age to complete [...] patient's age to complete this topic Insurance [place] Care Teams Housekeeping/Laundry Relationship Specialty Start Date End Date Michael Thakkar MD PCP - General FAMILY PRACTICE 08/21/23
== END 2025-08-24 09:44 | disposition home or self-care (01) ==
PROVIDERS: Emergency Provider Registered Nurse; PCP Internal Medicine
DX: J06.9 Acute upper respiratory infection, unspecified (principal); Z79.899 Other long term (current) drug therapy
CPT/HCPCS: 87081; 87880; 99213; G0463

== ENCOUNTER 2025-10-05 08:24 | Emergency (ER) | payer OTHER, SELFPAY ==
[2025-10-05 08:33] VITALS: BP 122/72; PULSE 66; RESP 18; TEMP 36.3; O2SAT 100
--- OUTSIDE RECORDS SUMMARY | 2025-10-05 08:43 | XMS_ITS | Clinical Summary ---
Author Organization [facility] Address [address] [place] [address] Care Team Providers Care Process Consultant Name Role Phone Michael Thakkar MD Primary [...] this topic Insurance [employer] Care Teams Process Consultant Relationship Specialty Start Date End Date Michael Thakkar MD PCP - General FAMILY PRACTICE 08/21/23
--- OUTSIDE RECORDS SUMMARY | 2025-10-05 08:43 | XMS_ITS | Patient Health Record ---
Author Organization [facility] [employer] Address [address] [place] [address] Care Team Providers Care Instructional Design Consultant Name Role Phone Nemesio Christianson MD Primary Care Provider Kay Watts Unavailable [phone] Allergies Allergen (clinical drug ingredient) Drug/Non Drug [...] End Date Status Vitamin D3 250 MCG (50022 UT) Capsule TAKE 1 CAPSULE BY MOUTH [...] Status Risk Notes Problem Generalized anxiety disorder (92285084) Generalized anxiety disorder (F41.1) Active confirmed Problem Primary insomnia (5013974) Primary insomnia (F51.01) Active confirmed Problem Depression Screening (062133462) Encounter for screening for depression (Z13.31) Active confirmed Problem Moderate recurrent major depression (16472680) MDD (major depressive disorder), recurrent episode, moderate (F33.1) Active confirmed Problem Panic disorder (230338765) Panic attacks (F41.0) Active confirmed Vital Signs Heart Rate 61 /min 04/09/2025 Respiratory Rate 16 /min 04/09/2025 Height-cm 160.02 cm 04/09/2025 Blood pressure diastolic 76 mm Hg 04/09/2025 Weight-kg 111.68 kg 04/09/2025 Height 63 in 04/09/2025 Blood pressure systolic 112 mm Hg 04/09/2025 Weight 246.2 lbs 04/09/2025 BMI 43.61 kg/m2 04/09/2025 Encounters Encounter Location Date Provider Diagnosis [facility] [address] [address] 04/09/2025 Kay Taylor Encounter for screening for [...] medications. websites http_s://www.nimh. nih.gov/health/top ics/mental-health- medications http_s://www.melva. org/Buzap-Theebn-F llness/Treatments/ Qarczg-Gjkadw-Hvio cations http_s://www.melva. org/Slqpt-Lpmdcz-C llness/Mental-Heal th-Conditions http_s://psychcent Eventpig.com/depression /txk-vrwlsoryo-ukv ujaub-re-vqdwfetcw n#treatments http__s://www.nimh .nih.gov/health/to pics/mental-health -medications http__s://www.melva .org/About-Mental- Illness/Treatments /Gtnsqn-Dstsib-Isw ications http_s://cherry.nih. gov/publications/d rugfacts/cannabis- marijuana http_s://www.J.G. ink/cannabi i-dxb-yfjdrpxr-mar ijuana-adhd/ 04/09/2025 MDD (major depressive disorder), recurrent [...] medications. websites http_s://www.nimh. nih.gov/health/top ics/mental-health- medications http_s://www.melva. org/Hmycn-Tsnphd-T llness/Treatments/ Iqiplg-Educaa-Rpve cations http_s://www.melva. org/Vlojv-Ytvxzf-X llness/Mental-Heal th-Conditions http_s://Schmoozer.Tweetminster/depression /uls-fjqrmmagc-rqs bsbho-zo-fsjjlypci n#treatments http__s://www.nimh .nih.gov/health/to pics/mental-health -medications http__s://www.Hammer & Chisel .org/About-Mental- Illness/Treatments /Fnwknk-Plneaj-Iyq ications http_s://cherry.nih. gov/publications/d rugfacts/cannabis- marijuana http_s://www.J.G. ink/cannabi y-jbj-ivvxydpo-mar ijuana-adhd/ 04/09/2025 Generalized anxiety disorder (ICD-10 - [...] medications. websites http_s://www.nimh. nih.gov/health/top ics/mental-health- medications http_s://www.melva. org/Sxgdv-Ifqhcd-K llness/Treatments/ Rdecpy-Zfrugb-Twqe cations http_s://www.melva. org/Rjlvh-Ekblxs-Z llness/Mental-Heal th-Conditions http_s://Yakify/depression /pnl-zjhufbqlh-icd mkube-ws-ehvawdexg n#treatments http__s://www.nimh .nih.gov/health/to pics/mental-health -medications http__s://www.melva .org/About-Mental- Illness/Treatments /Vhlifl-Umsumk-Has ications http_s://cherry.nih. gov/publications/d rugfacts/cannabis- marijuana http_s://www.J.G. ink/cannabi z-keh-yoegzkkp-mar ijuana-adhd/ 04/09/2025 Panic attacks (ICD-10 - F41.0) [...] medications. websites http_s://www.nimh. nih.gov/health/top ics/mental-health- medications http_s://www.melva. org/Blfca-Ymxrlg-Q llness/Treatments/ Aimygm-Uicdwx-Fnol cations http_s://www.melva. org/Cipku-Tafsta-O llness/Mental-Heal th-Conditions http_s://psychcent Eventpig.com/depression /sup-faunkexmp-rkv jrhtm-vt-vxmunhdkp n#treatments http__s://www.nimh .nih.gov/health/to pics/mental-health -medications http__s://www.melva .org/About-Mental- Illness/Treatments /Odxmof-Fyzbce-Uzn ications http_s://cherry.nih. gov/publications/d rugfacts/cannabis- marijuana http_s://www.J.G. ink/cannabi m-fzb-qsskczvv-mar ijuana-adhd/ 04/09/2025 Primary insomnia (ICD-10 - F51.01) [...] medications. websites http_s://www.nimh. nih.gov/health/top ics/mental-health- medications http_s://www.melva. org/Avzzu-Cyihka-G llness/Treatments/ Yoyqgn-Gajxgd-Lfes cations http_s://www.melva. org/Uyogm-Ctuuix-M llness/Mental-Heal th-Conditions http_s://psychcent Eventpig.com/depression /dah-sjvcuphdu-ctl hhyku-pq-thnltxvnn n#treatments http__s://www.nimh .nih.gov/health/to pics/mental-health -medications http__s://www.melva .org/About-Mental- Illness/Treatments /Ivffsl-Yutrnd-Tqm ications http_s://cherry.nih. gov/publications/d rugfacts/cannabis- marijuana http_s://www.J.G. ink/cannabi m-kre-kobzkdwe-mar ijuana-adhd/ 04/09/2025 Other Learning About Depression Screening [...] medications. websites http_s://www.nimh. nih.gov/health/top ics/mental-health- medications http_s://www.melva. org/Efgtk-Icrtgk-S llness/Treatments/ Xxcjry-Wupzmw-Jrdz cations http_s://www.melva. org/Ffeva-Fpztjn-S llness/Mental-Heal th-Conditions http_s://psychEdaytown.com/depression /chd-agqqbvjmo-hgx uizcz-dt-ipusffjyv n#treatments http__s://www.nimh .nih.gov/health/to pics/mental-health -medications http__s://www.melva .org/About-Mental- Illness/Treatments /Peeqze-Tvsamr-Eci ications http_s://cherry.nih. gov/publications/d rugfacts/cannabis- marijuana http_s://www.J.G. ink/cannabi i-hxt-neqaollg-mar ijuana-adhd/ Plan Of Treatment No Information Insurance Providers Payer Name Payer Address Payer Phone Subscriber Number Group Number Insured Name Patient Relationship to Insured Coverage Start Date Coverage End Date [employer] [address] [place] [address] [id number] Ceci White Self - patient is the [...]
--- OUTSIDE RECORDS SUMMARY | 2025-10-05 08:47 | XMS_ITS | Clinical Summary ---
Author Organization [facility] Address [address] [place] [address] Care Team Providers Care Recyclable Materials Sorter Name Role Phone Colby Diaz MD Unavailable [phone] Teresa Degroot ANY COMMODITY BUYER Unavailable [phone] Suzanne Dudley ANY COMMODITY BUYER Unavailable [phone] Deandra Sorto MD Unavailable [phone] Nemesio Christianson MD Primary Care Provider [phone] Allergies Active Allergy Reactions Criticality Noted Date Comments Adhesive Rash Medium 09/06/2025 Latex Hives,Itching Medium 09/18/2023 Rizatriptan Fever Medium [...] 120 tablet 4 Active cholecalciferol (VITAMIN D-3) 47988 unit capsuleIndication s:Vitamin D deficiency TAKE 1 CAPSULE BY MOUTH DAILY 90 capsule 1 5 Active phentermine (ADIPEX-P) 37.5 mg tablet Take 1 tablet (37.5 mg total) by mouth daily 5 Active norelgestromin-et hin.estradioL (ORTHO EVRA) 150-35 mcg/24 hrIndications:Pre gnancy Contraception Apply 1 patch each week for 3 weeks, then remove for 1 week. 3 patch 12 5 06/02/20 26 Active SUMAtriptan (IMITREX) 100 mg tabletIndications :Migraine Take one tabet po q2h prn as soon as feel headache is coming. No more than 2 tablets in 24 hours. 9 tablet 3 5 Active topiramate (TOPAMAX) 50 mg tabletIndications :Chronic migraine without aura without status migrainosus, not intractable Take half tablet (25 mg) po twice a day for one week, then one tablet po twice a day 60 tablet 3 5 Active amitriptyline (ELAVIL) 25 mg tablet Take one tablet po qhs for one week, then two tablets po qhs 60 tablet 3 5 Active Active Problems Problem Noted Date Diagnosed [...] 11/22/2023 Assessment & Plan (11/22/2023 12:36 PM CAN STACKER): This is possibly a trigger point and [...] today Assessment & Plan (11/22/2023 12:36 PM CAN STACKER): The cervix is healing well The friable part was treated with silver nitrate Will see if this happens again Assessment & Plan (10/03/2023 3:17 PM CAN STACKER): Results reviewed She voices understanding Will plan to repeat pap q 4 months for the first year Then q 6m for the year after that. Assessment & Plan (09/16/2023 2:16 PM CAN STACKER): Will proceed as planned. Assessment & Plan (07/20/2023 11:59 AM CDT): Results reviewed To [facility] Procedure reviewed along with risk, benefits and [...] --> [place] [address] [place] daily on prior visit which is what she is doing now - recheck lab, order placed Lab Results Component Value Date 25HYDROVITD 17 (L) 12/11/2023 25HYDROVITD 19 (L) 04/10/2023 25HYDROVITD 25 (L) 08/01/2022 25HYDROVITD 33 04/19/2021 25HYDROVITD 18 (L) 08/25/2020 Assessment & Plan (12/12/2023 5:05 AM CAN STACKER): - chronic, not well controlled - worse [...] 08/01/2022 Assessment & Plan (12/12/2023 5:07 AM [facility]): - chronic condition, not at goal, worse [...] scheduled Assessment & Plan (10/05/2022 11:45 AM CAN STACKER): - chronic condition, not at goal - [...] management Assessment & Plan (10/05/2022 11:34 AM CAN STACKER): - chronic,controlled - currently on Hydroxyzine 25 mg 1/2 tablet at night as needed only - continue management Atypical chest pain 10/05/2022 Assessment & Plan (09/11/2024 8:14 AM CAN STACKER): - atypical chest pain, recurring condition, recently [...] valve. Assessment & Plan (09/09/2023 10:37 AM CAN STACKER): - atypical chest pain, less frequent - [...] valve. Assessment & Plan (10/05/2022 1:47 PM CAN STACKER): - atypical chest pain - chronic in [...] 12/11/2023 Assessment & Plan (12/11/2023 8:57 AM CAN STACKER): - chronic condition, better controlled - mixed symptoms of anxiety and depression - states it is getting better - currently on Lexapro 10 mg daily - continue current management with changes made above Lab Results Component Value Date TSH 2.43 04/10/2023 Assessment & Plan (09/09/2023 8:57 AM CAN STACKER): - chronic condition, not well controlled with [...] 04/10/2023 Assessment & Plan (10/05/2022 11:34 AM CAN STACKER): - chronic condition, controlled with persistent symptoms [...] 07/09/2022 Assessment & Plan (09/11/2024 7:57 AM CAN STACKER): - chronic condition, controlled/stable - mixed symptoms [...] 12/11/2023 Assessment & Plan (12/11/2023 9:00 AM CAN STACKER): - chronic condition, better controlled - mixed symptoms of anxiety and depression - states it is getting better - currently on Lexapro 10 mg daily - continue current management Lab Results Component Value Date TSH 2.43 04/10/2023 Assessment & Plan (09/09/2023 8:57 AM CAN STACKER): - chronic condition, not well controlled with [...] 04/10/2023 Assessment & Plan (10/05/2022 11:33 AM CAN STACKER): - chronic condition, controlled with persistent symptoms [...] 05/23/2022 Assessment & Plan (10/05/2022 11:35 AM CAN STACKER): - chronic, stable - follows with GI [...] 03/22/2022 Assessment & Plan (09/11/2024 8:15 AM CAN STACKER): - chronic condition with recurrence of symptoms [...] of meds if possible during the winter Chronic migraine without aura, not intractable 1 10/25/2019 Assessment & Plan (06/02/2025 10:17 AM CDT): [...] management Assessment & Plan (12/11/2023 9:00 AM CAN STACKER): - chronic, not well controlled - without [...] management Assessment & Plan (09/09/2023 8:59 AM CAN STACKER): - chronic, not well controlled - without [...] above Assessment & Plan (10/05/2022 11:38 AM CAN STACKER): - chronic, under control - very infrequent [...] or bologna; no MSG as found in slovak food; no more than 1/2 banana a [...] visit Assessment & Plan (08/25/2020 11:19 AM CAN STACKER): HPI: Condition is worsening A&P: Discussed/ordered labs, [...] hot dogs, no MSG as found in slovak food, no more than 1/2 banana a day, no artificial sweeteners, fresh bread (less than 24 hours old); drink lots of water. Morbid obesity with BMI of 40.0-44.9, adult 0 02/2020 Assessment & Plan (08/17/2024 11:56 AM [...] loss Assessment & Plan (12/11/2023 8:55 AM CAN STACKER): Wt Readings from Last 3 Encounters: 12/11/23 [...] increase to twice daily as recommended by LINUX SERVER ENGINEER. Advised patient it may take longer to notice weight loss with this medication and this medication can be increased if needed. Assessment & Plan (10/05/2022 11:39 AM CAN STACKER): Wt Readings from Last 3 Encounters: 10/05/22 [...] your mouth on an ana maría like Insem Spa Lower carb substitutions: Aldi carries a zero [...] in much longer they will become mushy Moro and/or coconut flour instead of regular flour For pizza dough, try fathead pizza dough recipe online. To get a crispy crust, bake on one side for 8-12 min, then flip over and bake on the other side for 8-12 min, then put toppings on and bake until the cheese on top of pizza melts henrik recipe online For ice cream, try the brand Enlightened To replace coffee creamer and make it low carb, use heavy creamer with sugar free Torani sweetener For chips, try Whisps or pork rinds For yogurt, try Two Good colombian yogurt Use Chance for recipe ideas. Type [...] your mouth on an ana maría like Insem Spa Lower carb substitutions: Aldi carries a zero [...] in much longer they will become mushy Moro and/or coconut flour instead of regular flour [...] pork rinds For yogurt, try Two Good colombian yogurt Use Pinterest for recipe ideas. Type [...] your mouth on an ana maría like Insem Spa Lower carb substitutions: Kelechi carries a zero [...] in much longer they will become mushy Moro and/or coconut flour instead of regular flour [...] pork rinds For yogurt, try Two Good colombian yogurt Use Chance for recipe ideas. Type [...] your mouth on an ana maría like Insem Spa or TriVascular Aldi carries a zero net carb bread [...] in much longer they will become mushy Moro and/or coconut flour instead of regular flour [...] pork rinds For yogurt, try Two Good colombian yogurt Use Pinterest for recipe ideas. Type in low carb... Assessment & Plan (10/05/2021 3:30 PM CAN STACKER): HPI: Condition is not at/near goal goal BMI <30 A&P: Healthy, high-protein, lower carbohydrate, lower fat lifestyle and exercise for 150min/week recommended Substitutions: Recommend tracking everything you put in your mouth on an ana maría like Insem Spa or TriVascular Aldi carries a zero net carb bread [...] in much longer they will become mushy Moro and/or coconut flour instead of regular flour [...] pork rinds For yogurt, try Two Good colombian yogurt Use Pinterest for recipe ideas. Type in low carb... Assessment & Plan (04/19/2021 8:18 AM CDT): HPI: Condition is not at/near goal goal BMI <30 A&P: Healthy, high-protein, lower carbohydrate, lower fat lifestyle and exercise for 150min/week recommended Substitutions: Recommend tracking everything you put in your mouth on an ana maría like Insem Spa or TriVascular Aldi carries a zero net carb bread [...] in much longer they will become mushy Moro and/or coconut flour instead of regular flour [...] pork rinds For yogurt, try Two Good colombian yogurt Use Pinterlise for recipe ideas. Type in low carb... Assessment & Plan (12/28/2020 8:50 AM CAN STACKER): Healthy, low carbohydrate lifestyle and exercise for [...] replacement For pasta, try using zucchini noodles Moro and/or coconut flour instead of regular flour For pizza dough, try fathead pizza dough recipe online chaffles recipe online For ice cream, try the brand Enlightened Use Pinterest for recipe ideas. Type in low carb... Assessment & Plan (08/25/2020 11:21 AM CAN STACKER): HPI: Condition is stable A&P: Healthy, low [...] in much longer they will become mushy Moro and/or coconut flour instead of regular flour [...] pill. Assessment & Plan (11/09/2022 12:11 PM CAN STACKER): Discussed irregular cycles and PCOS in depth. [...] Encounters Date Type Department Care Team Description 09/23/2025 Results Follow-Up [facility] [address] [place] [address] Teresa Degroot, ANY COMMODITY BUYER THINPREP TIS PAP RFX HR HPV DNA AND C. TRACHOMATIS AND N. GONORRHOEAE 09/10/2025 Orders Only [facility] [address] [place] [address] [address] [place] [address] Nemesio Smart MD 09/06/2025 10:00 AM CAN STACKER Office Visit [facility] [address] [place] [address] [address] [place] [address] Nemesio Smart MD Chronic migraine without aura without status migrainosus, not intractable (Primary Dx) 09/06/2025 8:30 AM CAN STACKER Office Visit [facility] [address] [place] [address] [address] [place] [address] Teresa Degroot, SHEMAR High grade squamous intraepithelial lesion (HGSIL), grade 3 JORDYN, on biopsy of cervix (Primary Dx); Screening examination for STI from Last 3 Months Immunizations Immunization Administration [...] Cynthia Other cancer Neg Hx no breast, zipper trimmer, or colon cancers sng 01/28/25 Relation Name [...] points, staff should administer the PHQ-9) 0 09/06/2025 PHQ-9 Answer Date Recorded PHQ-9 Total Score 0 09/06/2025 Personal Safety Answer Date Recorded Have you ever been in or are you currently in a harmful physical or emotional relationship or is someone making you feel afraid or unsafe? Denies 12/28/2024 Comments No Sex and Gender Information Value Date Recorded Sex Assigned at Not on file Legal Sex Female 4:14 AM CAN STACKER Gender Identity Female 01/26/2021 10:41 PM CDT Sexual Orientation Bisexual 01/26/2021 10 :41 PM CDT Obstetrics History Para Term AB IAB SAB Ectopic Multiple Livin g Live Births 1 1 1 1 1 Date Outcome GA Total Labor Labor/2nd/3rd Weight Sex Type Anes PTL Marcia A1 A5 Name Clin Term 2.92 kg (6 lb 7 oz) F Vag-S pont Living Last Filed Vital Signs Vital Sign Reading Time Taken Comments Blood Pressure 132/91 09/06/2025 9:56 AM CAN STACKER Pulse 60 09/06/2025 9:56 AM CAN STACKER Temperature 36.2 C (97.2 F) 12/28/2024 2:16 AM CDT Respiratory Rate 18 12/28/2024 2:16 AM CDT Oxygen Saturation 95% 09/06/2025 9:56 AM CAN STACKER Inhaled Oxygen Concentration - - Weight 107 kg (236 lb) 09/06/2025 9:56 AM CAN STACKER Height 160 cm (5' 2.99) 09/06/2025 9:56 AM CAN STACKER Body Mass Index 41.82 09/06/2025 9:56 AM CAN STACKER Plan of Treatment Health Maintenance Due Date Last Done Comments Covid-19 Vaccine ( season) 2025 09/16/2022, 08/17/2022 Influenza Vaccine (#1) 2025 , 08/26/2023, 07/09/2022, Additional history exists Cervical Cancer Screening 01/28/20262024, 07/20/2024, 01/16/2024, Additional history exists Regular Well Visit/Exam 18-64 01/28/2026 01/28/2025, 01/16/2024, 01/24/2023, Additional history exists Depression Screening 09/06/2026 09/06/2025, 09/06/2025, 01/28/2025, Additional history exists DTaP/Tdap/Td Vaccine (5 - [...] Procedure Name Priority Date/Time Associated Diagnosis Comments THINPREP TIS PAP RFX HR HPV DNA AND C. TRACHOMATIS AND N. GONORRHOEAE Routine 09/06/2025 9:15 AM CAN STACKER Screening examination for STI HPV DNA (HIGH RISK) Routine 09/06/2025 9 :15 AM CAN STACKER PAP, REFLEX HPV Routine 01/28/2025 3:25 PM CDT High grade squamous intraepithelial lesion (HGSIL), grade 3 JORDYN, on biopsy of cervix HEPATITIS C ANTIBODY Routine 08/13/2024 10:20 AM CDT Need for hepatitis C screening test from Last 3 Months or Most Recently Relevant to Health Maintenance Results * (ABNORMAL) THINPREP TIS PAP RFX HR HPV DNA AND C. TRACHOMATIS AND N. GONORRHOEAE (09/06/2025 9:15 AM CAN STACKER) CLINICAL INFORMATION: [facility] Comment:None given LMP [facility] Comment:NONE GIVEN Previous Pap [facility] Comment:NONE GIVEN Prev. Bx [facility] Comment:NONE GIVEN SOURCE: [facility] Comment:None given Pap, specimen adequacy [facility] Comment: Satisfactory for evaluation. Endocervical/transformation zone component present. Age and/or menstrual status not provided Pap, general categorization (A) [facility] Comment:Cytology Results: Ep ithelial Cell Abnormality HPV interp (A) [facility] Comment: Atypical Squamous Cells of Undetermined Significance (ASC-US) COMMENTS [facility] Comment: This Pap test has been evaluated with the ThinPrep(R) Imaging System. Suggest clinical correlation and follow-up as clinically appropriate Primer Boxer Que [facility] Comment: BES, CT(ASCP) CT Screening Location: [facility] [place] [address] CLIA: [id number] Slide preparation performed at: [facility], [address] [place] [address], [address] CLIA: [id number] Pathologist [facility] Comment: Raul Cross M.D., Board Certified in Anatomic Pathology and Cytopathology. (electronic signature) Pathologist Release Date/Time: 09/14/2025 08:58AM Comment [facility] Comment: EXPLANATORY NOTE: The Pap is a screening test for cervical cancer. It is not a diagnostic test and is subject to false negative and false positive results. It is most reliable when a satisfactory sample, regularly obtained, is submitted with relevant clinical findings and history, and when the Pap result is evaluated along with historic and current clinical information. C. trachomatis RNA NOT DETECTED NOT DETECTED [facility] N. gonorrhoeae RNA NOT DETECTED NOT DETECTED [facility] Comment [facility] Comment: The analytical performance characteristics of this assay, when used to test SurePath(TM) specimens have been determined by [employer]. The modifications have not been cleared or approved by the FDA. This assay has been validated pursuant to the CLIA regulations and is used for clinical purposes. For additional information, please refer to https://education.ULURU/faq/IMW222 (This link is being provided for information/ educational purposes only.) Endocervical/vag inal 09/06/2025 9:15 AM CAN STACKER 09/07/2025 5:43 PM CAN STACKER us Teresa Degroot NP LAB CYTOLOGY ORDERABLES Fin al Result [facility] [address] [place] [address] [address] * HPV DNA (HIGH RISK) (09/06/2025 9:15 AM CAN STACKER) Human papillomavirus DNA, High Risk E6/E7 Not Detected NOT DETECTED [facility] Comment: Not Detected High Risk HPV types (16,18,31,33,35,39,45,51,52, 56,58,59,66,68) were not detected. Other HPV types which cause anogenital lesions may be present. The significance of the other types of HPV in malignant processes has not been established. Methodology: Real Time PCR 09/06/2025 9:15 AM CAN STACKER 09/07/2025 5:43 PM CAN STACKER Teresa Degroot NP LAB BLOOD ORDERABLES Final Result [facility] [address] [place] [address] * Pap, reflex HPV (01/28/2025 3:25 PM CDT) CLINICAL INFORMATION: [facility] Comment:WELL WOMEN LMP [facility] Comment:01/10/2025 Previous Pap [facility] Comment:NONE GIVEN Prev. Bx [facility] Comment:NONE GIVEN SOURCE: [facility] Comment:Cervix, Endocervix Pap, specimen adequacy [facility] Comment: Satisfactory for evaluation. Endocervical/transformation zone component absent. HPV interp [facility] Comment: Cytology Results: Negative for intraepithelial lesion or malignancy. COMMENTS [facility] Comment: This Pap test has been evaluated with computer assisted technology. Primer Boxer Martin Quinn Comment: KRISTOFER CT(ASCP) CT Screening Location: [place] [address] [address] MIKAL [address]per [facility] Review skin peeling machine operator [facility] Comment: MATT CT(ASCP) CT Screening location: [place] [address] [address] MIKAL Draper [facility] Comment [facility]ama Comment: EXPLANATORY NOTE: The Pap is [...] ORDERA BLES Final Result Performing Organization Address [facility]/ZIP Co de Phone Number VITALIY Lama [address] [place] [address] * Hepatitis C antibody Blood (08/13/2024 10:20 [...] last revised on 2020. Testing performed by: [facility], [address] [place] [address]., [address] Blood 08/13/2024 10:2 0 AM CDT 08/13/2024 3:53 PM CDT Michael Thakkar MD LAB MICROBIOLOGY - [facility] ORDERABLES Final Result [facility] [address] [facility] Department [place] [address] from Last 3 Months or Most Recently Relevant to [place] [address] [facility] Advance Directives For more information, please contact: [phone] * Full Code (Latest Code Status on File) Date Activated Date Inactivated Comments 03/27/2022 11:36 AM 03/27/2022 6:30 PM Care Teams Recyclable Materials Sorter Relationship Specialty Start Date End Date Nemesio Christianson MD [address] [place] [address] DR [address]ART[address] [place] [address] PCP - General Internal Medicine 12/28/24 Colby Diaz MD Consulting Physician Gastroenterology 10/05/22 Teresa Degroot NP [address] [place] [address] DR [address]ARTINEZ [address] [place] [address] Nurse Practitioner Obstetrics and Gynecology 04/16/23 Suzanne Dudley NP [address] [place] [address] DR [address]ART[address] [place], [place] [address], [place] [address] Nurse Practitioner Family Medicine 04/16/23 Deandra Sorto MD [address] [place] [address] [place] [address] Consulting Physician Obstetrics and Gynecology 09/18/23
--- OUTSIDE RECORDS SUMMARY | 2025-10-05 08:47 | XMS_ITS | Encounter Summary ---
Author Organization [facility] Address [address] [place] [address] Care Team Providers Care Repair Cameraman Name Role Phone Yolanda Buitrago NP Primary Care Provider Colby Diaz MD Unavailable [phone] Michael Thakkar MD Primary Care Provider Teresa Degroot NP Unavailable [phone] Suzanne Dudley RETAIL CENTER RECEPTIONIST Unavailable [phone] Deandra Sorto MD Unavailable [phone] Nemesio Christianson MD Primary Care Provider [phone] Encounter Details Date Type Department Care Team (Late st Contact Info) Description 02/06/2021 Telephone [facility] [address] [place] [address] Don John, RT Social History Tobacco Use Types Packs/Day Years [...] on file Legal Sex Female 4:14 AM DATA ENTRY ASSOCIATE Gender Identity Female 01/26/2021 10:41 PM CDT Sexual Orientation Bisexual 01/26/2021 10 :41 PM CDT documented as of this encounter Plan of Treatment Not on file documented as of this encounter Visit Diagnoses Not on filedocumented in this encounter Additional Health Concerns Infection Onset Date Last Indicated Resolved Time COVID: Suspected 10/10/2022 10/10/2022 10/10/2022 1:19 AM DATA ENTRY ASSOCIATE Influenza, adult 10/10/2022 10/10/2022 10/17/2022 3:05 AM DATA ENTRY ASSOCIATE COVID: Suspected 11/29/2022 11/29/2022 11/29/2022 11:21 AM DATA ENTRY ASSOCIATE documented as of this encounter Care Teams Repair Cameraman Relationship Specialty Start Date End Date Yolanda Buitrago NP PCP - General Family Medicine 08/25/20 10/04/22 Michael Thakkar MD PCP - General Family Medicine 10/05/22 12/13/24 Nemesio Christianson MD [address] [place] [address] [place] [address] PCP - General Internal Medicine 12/28/24 Colby Diaz MD Consulting Physician Gastroenterology 10/05/22 Teresa Degroot NP [address] [place] [address] [place] [address] Nurse Practitioner Obstetrics and Gynecology 04/16/23 Suzanne Dudley NP [address] [place] [address] [place] [address] Nurse Practitioner Family Medicine 04/16/23 Deandra Sorto MD [address] [facility] [address] [place] [address] Consulting Physician Obstetrics and Gynecology 09/18/23 documented as of this encounter
--- OUTSIDE RECORDS SUMMARY | 2025-10-05 08:47 | XMS_ITS ---
Author Organization [facility] Address [address] [place] [address] Care Team Providers Care Shoe Puller Name Role Phone Colby Diaz MD Unavailable [phone] Teresa Degroot POMOLOGY TEACHER Unavailable [phone] Suzanne Dudley POMOLOGY TEACHER Unavailable [phone] Deandra Sorto MD Unavailable [phone] Nemesio Christianson MD Primary Care Provider + [phone] Active Problems Problem Noted Date Diagnosed Date [...] 11/22/2023 Assessment & Plan (11/22/2023 12:36 PM SALESPERSON RECREATIONAL VEHICLES): This is possibly a trigger point and [...] today Assessment & Plan (11/22/2023 12:36 PM SALESPERSON RECREATIONAL VEHICLES): The cervix is healing well The friable part was treated with silver nitrate Will see if this happens again Assessment & Plan (10/03/2023 3:17 PM SALESPERSON RECREATIONAL VEHICLES): Results reviewed She voices understanding Will plan to repeat pap q 4 months for the first year Then q 6m for the year after that. Assessment & Plan (09/16/2023 2:16 PM SALESPERSON RECREATIONAL VEHICLES): Will proceed as planned. Assessment & Plan (07/20/2023 11:59 AM CDT): Results reviewed To [facility] Procedure reviewed along with risk, [...] --> [place] [address] [place] units daily on prior visit which is what she is doing now - recheck lab, order placed Lab Results Component Value Date 25HYDROVITD 17 (L) 12/11/2023 25HYDROVITD 19 (L) 04/10/2023 25HYDROVITD 25 (L) 08/01/2022 25HYDROVITD 33 04/19/2021 25HYDROVITD 18 (L) 08/25/2020 Assessment & Plan (12/12/2023 5:05 AM SALESPERSON RECREATIONAL VEHICLES): - chronic, not well controlled - worse [...] 08/01/2022 Assessment & Plan (12/12/2023 5:07 AM SALESPERSON RECREATIONAL VEHICLES): - chronic condition, not at goal, worse [...] scheduled Assessment & Plan (10/05/2022 11:45 AM SALESPERSON RECREATIONAL VEHICLES): - chronic condition, not at goal - [...] management Assessment & Plan (10/05/2022 11:34 AM SALESPERSON RECREATIONAL VEHICLES): - chronic,controlled - currently on Hydroxyzine 25 mg 1/2 tablet at night as needed only - continue management Atypical chest pain 10/05/2022 Assessment & Plan (09/11/2024 8:14 AM SALESPERSON RECREATIONAL VEHICLES): - atypical chest pain, recurring condition, recently [...] valve. Assessment & Plan (09/09/2023 10:37 AM SALESPERSON RECREATIONAL VEHICLES): - atypical chest pain, less frequent - [...] valve. Assessment & Plan (10/05/2022 1:47 PM SALESPERSON RECREATIONAL VEHICLES): - atypical chest pain - chronic in [...] 12/11/2023 Assessment & Plan (12/11/2023 8:57 AM SALESPERSON RECREATIONAL VEHICLES): - chronic condition, better controlled - mixed symptoms of anxiety and depression - states it is getting better - currently on Lexapro 10 mg daily - continue current management with changes made above Lab Results Component Value Date TSH 2.43 04/10/2023 Assessment & Plan (09/09/2023 8:57 AM SALESPERSON RECREATIONAL VEHICLES): - chronic condition, not well controlled with [...] 04/10/2023 Assessment & Plan (10/05/2022 11:34 AM SALESPERSON RECREATIONAL VEHICLES): - chronic condition, controlled with persistent symptoms [...] 07/09/2022 Assessment & Plan (09/11/2024 7:57 AM SALESPERSON RECREATIONAL VEHICLES): - chronic condition, controlled/stable - mixed symptoms [...] 12/11/2023 Assessment & Plan (12/11/2023 9:00 AM SALESPERSON RECREATIONAL VEHICLES): - chronic condition, better controlled - mixed symptoms of anxiety and depression - states it is getting better - currently on Lexapro 10 mg daily - continue current management Lab Results Component Value Date TSH 2.43 04/10/2023 Assessment & Plan (09/09/2023 8:57 AM SALESPERSON RECREATIONAL VEHICLES): - chronic condition, not well controlled with [...] 04/10/2023 Assessment & Plan (10/05/2022 11:33 AM SALESPERSON RECREATIONAL VEHICLES): - chronic condition, controlled with persistent symptoms [...] 05/23/2022 Assessment & Plan (10/05/2022 11:35 AM SALESPERSON RECREATIONAL VEHICLES): - chronic, stable - follows with GI [...] (03/22/2022): refer to GI. previous workup in October. probiotic 20-50billion CFU daily stop the famotidine, start on omeprazole 20mg daily Assessment & Plan (06/02/2025 10:24 AM CDT): Elimination diet discussed To bentyl Dyspepsia 03/22/2022 Assessment & Plan (09/11/2024 8:15 AM SALESPERSON RECREATIONAL VEHICLES): - chronic condition with recurrence of symptoms [...] management Assessment & Plan (12/11/2023 9:00 AM SALESPERSON RECREATIONAL VEHICLES): - chronic, not well controlled - without [...] management Assessment & Plan (09/09/2023 8:59 AM SALESPERSON RECREATIONAL VEHICLES): - chronic, not well controlled - without [...] above Assessment & Plan (10/05/2022 11:38 AM SALESPERSON RECREATIONAL VEHICLES): - chronic, under control - very infrequent [...] or bologna; no MSG as found in belgian food; no more than 1/2 banana a [...] visit Assessment & Plan (08/25/2020 11:19 AM SALESPERSON RECREATIONAL VEHICLES): HPI: Condition is worsening A&P: Discussed/ordered labs, [...] hot dogs, no MSG as found in belgian food, no more than 1/2 banana a [...] loss Assessment & Plan (12/11/2023 8:55 AM SALESPERSON RECREATIONAL VEHICLES): Wt Readings from Last 3 Encounters: 12/11/23 [...] increase to twice daily as recommended by SURGICAL CLINICAL REVIEWER. Advised patient it may take longer to notice weight loss with this medication and this medication can be increased if needed. Assessment & Plan (10/05/2022 11:39 AM SALESPERSON RECREATIONAL VEHICLES): Wt Readings from Last 3 Encounters: 10/05/22 [...] your mouth on an ana maría like FreshGrade Lower carb substitutions: Aldi carries a zero [...] in much longer they will become mushy Boncarbo and/or coconut flour instead of regular flour [...] pork rinds For yogurt, try Two Good palestinian yogurt Use Chance for recipe ideas. Type [...] your mouth on an ana maría like [employer] Lower carb substitutions: Aldi carries a zero [...] in much longer they will become mushy Boncarbo and/or coconut flour instead of regular flour [...] pork rinds For yogurt, try Two Good palestinian yogurt Use Pinterest for recipe ideas. Type [...] your mouth on an ana maría like [employer]Grade Lower carb substitutions: Kelechi carries a zero [...] in much longer they will become mushy Boncarbo and/or coconut flour instead of regular flour [...] pork rinds For yogurt, try Two Good palestinian yogurt Use Chance for recipe ideas. Type [...] your mouth on an ana maría like FreshGrade or Kextil Aldi carries a zero net carb bread [...] in much longer they will become mushy Boncarbo and/or coconut flour instead of regular flour [...] pork rinds For yogurt, try Two Good palestinian yogurt Use Pinterest for recipe ideas. Type in low carb... Assessment & Plan (10/05/2021 3:30 PM SALESPERSON RECREATIONAL VEHICLES): HPI: Condition is not at/near goal goal BMI <30 A&P: Healthy, high-protein, lower carbohydrate, lower fat lifestyle and exercise for 150min/week recommended Substitutions: Recommend tracking everything you put in your mouth on an ana maría like FreshGrade or Fielding Systemsi carries a zero net carb bread If [...] in much longer they will become mushy Boncarbo and/or coconut flour instead of regular flour [...] pork rinds For yogurt, try Two Good palestinian yogurt Use Pinterest for recipe ideas. Type in low carb... Assessment & Plan (04/19/2021 8:18 AM CDT): HPI: Condition is not at/near goal goal BMI <30 A&P: Healthy, high-protein, lower carbohydrate, lower fat lifestyle and exercise for 150min/week recommended Substitutions: Recommend tracking everything you put in your mouth on an ana maría like FreshGrade or Kextil Aldi carries a zero net carb bread [...] in much longer they will become mushy Boncarbo and/or coconut flour instead of regular flour [...] pork rinds For yogurt, try Two Good palestinian yogurt Use P[employer] for recipe ideas. Type in low carb... Assessment & Plan (12/28/2020 8:50 AM SALESPERSON RECREATIONAL VEHICLES): Healthy, low carbohydrate lifestyle and exercise for [...] replacement For pasta, try using zucchini noodles Boncarbo and/or coconut flour instead of regular flour For pizza dough, try fathead pizza dough recipe online chaffles recipe online For ice cream, try the brand Enlightened Use Pinterest for recipe ideas. Type in low carb... Assessment & Plan (08/25/2020 11:21 AM SALESPERSON RECREATIONAL VEHICLES): HPI: Condition is stable A&P: Healthy, low [...] in much longer they will become mushy Boncarbo and/or coconut flour instead of regular flour [...] pill. Assessment & Plan (11/09/2022 12:11 PM SALESPERSON RECREATIONAL VEHICLES): Discussed irregular cycles and PCOS in depth. [...]
--- OUTSIDE RECORDS SUMMARY | 2025-10-05 08:49 | XMS_ITS | Encounter Summary ---
Author Organization [facility] Healthcare Address [address] [place] [address] Care Team Providers Care Electron Tube Assembler Name Role Phone Colby Diaz MD Unavailable [phone] Teresa Degroot NP Unavailable Suzanne Dudley NP Unavailable [phone] Deandra Sorto MD Unavailable [phone] Nemesio Christianson MD Primary Care Provider [phone] Encounter Details Date Type Department Care Team (Late st Contact Info) Description 09/23/2025 Results Follow-Up [facility] [address] [place] [address] Teresa Degroot, ELECTRIC REFRIGERATOR SERVICER [address] [place] [id number] THINPREP TIS PAP RFX HR HPV DNA AND C. TRACHOMATIS AND N. GONORRHOEAE Social History Tobacco Use Types Packs/Day Years [...] on file Legal Sex Female 4:14 AM RN INTEGRITY Gender Identity Female 01/26/2021 10:41 PM CDT Sexual Orientation Bisexual 01/26/2021 10 :41 PM CDT documented as of this encounter Plan of Treatment Not on file documented as of this encounter Visit Diagnoses Not on filedocumented in this encounter Care Teams Electron Tube Assembler Relationship Specialty Start Date End Date Nemesio Christianson MD [address] [place] [address] [address] [place] [address] PCP - General Internal Medicine 12/28/24 Colby Diaz MD Consulting Physician Gastroenterology 10/05/22 Teresa Degroot ELECTRIC REFRIGERATOR SERVICER [address] [place] [address] [place] [address] Nurse Practitioner Obstetrics and Gynecology 04/16/23 Suzanne Dudley NP [address] [place] [address] [place] [address] Nurse Practitioner Family Medicine 04/16/23 Deandra Sorto MD [address] [place] [address] [place] [address] Consulting Physician Obstetrics and Gynecology 09/18/23 documented as of this encounter
--- NOTE | 2025-10-05 09:04 | ED_ITS ---
HPI - Back Pain/Injury General Chief Complaint: Back Pain/Injury Stated Complaint: Back Pain Time Seen by Provider: 10/05/25 09:04 Source: patient, RN notes reviewed and old records reviewed Mode of arrival: ambulatory Limitations: no limitations History of Present Illness HPI Narrative: 30-year-old female who presents to [facility] with complaints lower back pain which radiates to buttocks with some pain down the right leg since Saturday with increased symptoms since yesterday. Patient denies any tingling or numbness to her lower extremities and denies any difficulty with bowel or bladder function or saddle paresthesia. Patient denies any known injury reports she has had sciatica on the right side in the past. Patient reports tenderness to SI region on palpation bilaterally, no paraspinal muscle pain. Patient has not tried any OTC medication for her pain has tried massage. MD elicited complaint: back pain Pertinent past history: prior back pain ( sciatica) Onset (ago): day(s) (4 days increase symptoms since yesterday) Pain scale (0-10): 9 Similar Symptoms Previously: Yes Quality: dull and aching Treatments prior to arrival: other (massage) Work related injury: No Related Data Home Medications ?Medication ?Instructions ?Recorded ?Confirmed ?Last Taken ?Type atorvastatin 40 mg tablet mg 08/24/25 Unknown History cholecalciferol (vitamin D3) 250 08/24/25 Unknown Hi story mcg (10,000 unit) capsule famotidine 40 mg tablet mg 08/24/25 Unknown History norelgestromin 150 mcg-e.estradiol patch 08/24/25 Unk nown History 35 mcg/24 hr weekly transderm patch (Xulane) sumatriptan succinate 100 mg tablet mg PO 10/05/25 Un known History Allergies Allergy/AdvReac Type Severity Reaction Status Date / Time rizatriptan Allergy Unknown Verified 10/05/25 08:37 latex AdvReac Hives Verified 10/05/25 08:37 Review of Systems Review of Systems: CONSTITUTIONAL: Denies fever, chills, or sweats. EYES: Denies visual changes, redness, or discharge. ENT: Denies rhinorrhea, congestion, sore throat, or otalgia. CARDIOVASCULAR: Denies chest pain, palpitations, or edema. RESPIRATORY: Denies cough or dyspnea. GASTROINTESTINAL: Denies abdominal pain, nausea, vomiting, or diarrhea. GENITOURINARY: Denies dysuria or hematuria. SKIN: Denies rash or itching. MUSCULOSKELETAL: Reports back pain with some radiation into buttocks and some down her right leg with no tingling or numbness, reports no bowel or bladder dysfunction NEUROLOGIC: Denies headache, numbness, or weakness. PSYCHIATRIC:Reports history of anxiety or depression. All systems reviewed & are unremarkable except as noted in HPI and below PMFSH Past Medical History Medical History Anxiety and depression Jean's palsy PCOS (polycystic ovarian syndrome) High cholesterol H/O gastroesophageal reflux (GERD) Surgical History Surgical History History of conization of cervix Social History Social History Smoking status: Never smoker Substance use: never Comments At time of signature, agree with nursing past medical, surgical, social and family history. There is no relevant family history pertinent to the presenting complaint Exam Narrative: GENERAL: Well-appearing, well-nourished, and in no acute distress. HEAD: Normocephalic, atraumatic. EYES: PERRLA and EOMI. ENT: Nares clear, no rhinorrhea or epistaxis. Mucous membranes moist. NECK: Supple.no lymphadenopathy CHEST: Clear to auscultation. No respiratory distress.SAO2 100% on room air HEART: Regular rate and rhythm. No murmur heard. Normal peripheral pulses. ABDOMEN: Soft, nontender, nondistended, normal active bowel sounds. EXTREMITIES: Normal range of motion. No edema.Positive for SI discomfort on examination with radiation to buttocks bilaterally with some radiation of pain down right leg. No saddle paraesthesia no difficulty with bowel or bladder function. Patient reports increased pain with changes of position, denies any known injury SKIN: Warm, dry, no rash. NEURO: No focal deficits. Alert and oriented x3. Course Course Level of Care: Express Care Visit Vital Signs Vital signs: Vital Signs Temperature 36.3 C L 10/05/25 08:33 Pulse Rate 66 10/05/25 08:33 Respiratory Rate 18 10/05/25 08:33 Blood Pressure 122/72 10/05/25 08:33 Pulse Oximetry 100 10/05/25 08:33 Oxygen Delivery Room Air 10/05/25 08:33 Temperature 36.3 C L 10/05/25 08:33 Pulse Rate 66 10/05/25 08:33 Respiratory Rate 18 10/05/25 08:33 Blood Pressure 122/72 10/05/25 08:33 Pulse Oximetry 100 10/05/25 08:33 Oxygen Delivery Room Air 10/05/25 08:33 reviewed MDM MDM Narrative Medical decision making narrative: 30 year old female with complaints of lower back pain with radiation to buttock and to some radiation to right leg, denies any tingling or numbness. Patient is non toxic and appropriate for outpatient follow up. Patient received anticipatory guidance and reviewed reasons to seek care in the ED with understanding voiced. Differential Diagnosis Differential Diagnosis: Differential diagnostic considerations for back pain?include?herniated disc, sciatica, abscess, strain/sprain, discitis, myelitis, fracture, hematoma, cauda equina, osteomyelitis, metastatic and/or primary malignancy, renal colic, pyelonephritis, AAA.? Critical Care Time Critical Care Time Critical Care Time: No Discharge Plan Discharge Clinical Impression: Back pain of lumbar region with sciatica Patient Disposition: Home Condition: Stable Instructions: Back Pain (ED) Additional Instructions: Ice and heat to the area for 20-30 minutes Gentle stretching exercises Gentle massage Caution with lifting, bending, stooping, twisting Avoid pushing, pulling take muscle relaxants as directed--caution drowsiness and no driving or alcohol Anti-inflammatory medicine as directed--take with food He may take the muscle relaxant and anti-inflammatory at the same time Follow-up with your PCP if not improving in 5-7 days If your symptoms persist, change or worsen significantly before you can contact your personal physician then please, without delay, go to the emergency department for further evaluation. Follow-up with PCP in 7-10 days or sooner if needed Patient Language: Micronesian Prescriptions: New cyclobenzaprine 10 mg tablet 10 mg PO HS Qty: 14 0RF Rx Instructions: no driving or any alcohol with this medication prednisone 20 mg tablet 40 mg PO DAILY 5 Days Qty: 10 0RF ibuprofen 600 mg tablet 600 mg PO QID PRN (Reason: fever or pain) Qty: 30 0RF Rx Instructions: up to 4 times daily only No Action sumatriptan succinate 100 mg tablet PO atorvastatin 40 mg tablet famotidine 40 mg tablet norelgestromin-ethin.estradiol [Xulane] 150-35 mcg/24 hr patch weekly cholecalciferol (vitamin D3) 250 mcg (10,000 unit) capsule Follow-up/Referrals: Sammy,MD Nemesio [Primary Care Provider] Stand Alone Forms: Work/School Release IP Time of Disposition: 09:18 Quality [place] Coma Scale Eyes: Open Verbal: Oriented and Alert Motor: Follows Commands [place] Coma Total Score: 15
== END 2025-10-05 09:22 | disposition home or self-care (01) ==
PROVIDERS: Emergency Provider Registered Nurse; PCP Internal Medicine
DX: M54.41 Lumbago with sciatica, right side (principal); K21.9 Gastro-esophageal reflux disease without esophagitis; E78.00 Pure hypercholesterolemia, unspecified; E28.2 Polycystic ovarian syndrome
CPT/HCPCS: 99213; G0463